=== PATIENT | male | born 1965 | race Two or more races ===

== ENCOUNTER 2016-05-25 13:54 | Observation (INO) | payer OTHER ==
[2016-05-25 14:06] VITALS: RESP 16
--- NOTE | 2016-05-25 14:52 | EDPHY ---
H & P Stated Complaint: lightheaded, dark stool "harder than normal," nausea, lower abd pain HPI/ROS: CHIEF COMPLAINT: Dark stools, nausea, weakness HISTORY OF PRESENT ILLNESS: The patient is a 50 y/o male, with a history of alcoholic cirrhosis and upper GI bleed, complaining of dark stools, waxing and waning nausea, and weakness for the last week. He was admitted in February 2016 for hematemesis and discharged after banding procedure of esophageal varices. He last required a paracentesis for his ascites in October 2015. He does not consistently measure his abdomen, but states he measured his abdomen at 38 inches this morning. In the past, Zofran and Tums alleviate his nausea, but they did not help significantly this time. He has some associated lower abdominal pain when nauseated. He describes dark brown stools, but not black or red, that improved more towards a normal color this morning. He denies vomiting , shortness of breath, leg swelling, or fever. He complains of baseline lightheadedness at exertion for "a long time" that is worse this week. He also endorses hand and leg cramping worsening over the last 3 days. He also notes his BP is normally around 90/60, but it has been slightly lower than normal over the last week and was 85/53 this morning. He has had a cough recently as well. He has been sober for almost 500 days. REVIEW OF SYSTEMS: A ten point review of systems was performed and is negative with the exception of the items mentioned in the HPI. Source: Patient Exam Limitations: No limitations - Personal History Current Tetanus/Diphtheria Vaccine: Unsure Current Tetanus Diphtheria and Acellular Pertussis (TDAP): Unsure - Medical/Surgical History PMH: PMH includes: 1. Alcoholic cirrhosis with history of ascites and last paracentesis 10/2015 2. Upper GI bleed 3. Esophageal varices with banding 02/2016 Reviewed prior medical records including admission for hematemesis 02/25/16. Hx Asthma: No Hx Chronic Respiratory Disease: No Hx Diabetes: No Hx Cardiac Disease: No Hx Renal Disease: No Hx Cirrhosis: Yes Hx Alcoholism: Yes Hx HIV/AIDS: No Hx Splenectomy or Spleen Trauma: No Other PMH: CIRRHOSIS, esophageal varices, upper gi bleed, parecentisis, repaired hernia, TBI 08/2011 - per pt report - Social History Smoking Status: Heavy smoker Alcohol Use: None Additional Social History: 1/2 pack cigarettes daily. Last alcohol intake 495 days ago. Works at [employer]. PCP Dr. Cerna at [facility] - Physical Exam Exam: General Appearance: Alert. Vital signs reviewed. BP 115/78. Eyes: Pupils equal and round, no conjunctival injection, no discharge. Anicteric. ENT, Mouth: Mucous membranes are moist, no oropharyngeal erythema or edema. Neck: No lymphadenopathy, supple. Respiratory: Lungs are clear to auscultation; no wheezes, rales, or rhonchi. Cardiovascular: Regular rate and rhythm; no murmur, rub, or gallop. Gastrointestinal: Abdomen is soft and nontender, no masses, hepatomegaly, bowel sounds normal. Rectal: Normal external exam. Skin: Warm and dry, no rashes on exposed skin, normal color. Back: Nontender to palpation over the thoracolumbar spine. No CVAT. Extremities: No lower extremity edema, no calf tenderness or swelling. Neurological: Alert and oriented. Moving all four extremities easily and equally. Psychiatric: Normal affect. Constitutional: Initial Vital Signs Temperature (C) 36.4 C 05/25/16 14:04 Heart Rate 73 05/25/16 14:04 Respiratory Rate 16 05/25/16 14:04 Blood Pressure 106/70 05/25/16 14:04 O2 Sat (%) 100 05/25/16 14:04 O2 Delivery Mode Room Air Allergies/Adverse Reactions: No Known Allergies Allergy (Unverified 02/25/16 09:58) Home Medications: Medication Instructions Recorded Furosemide [Lasix 40 MG (*)] 40 mg PO DAILY 10/26/15 Levothyroxine [Synthroid 175 mcg 175 mcg PO DAILY06 10/26/15 (*)] Multivitamins [Multivitamin (*)] 1 each PO DAILY 10/26/15 Omeprazole [Prilosec 20 mg] 40 mg PO DAILY 10/26/15 Spironolactone [Aldactone 25 MG 200 mg PO DAILY 10/26/15 (*)] Zolpidem Tartrate [Ambien 5MG (*)] 5 mg PO HS PRN 10/26/15 Herbals/Supplements -Info Only 1 ea PO DAILY 02/25/16 Lactulose [Cephulac 20 gm/30 ml 30 gm PO BID@07,13 02/25/16 oral soln (*)] traMADol [Ultram 50 mg (*)] 25 - 50 mg PO DAILY PRN 02/25/16 Folic Acid [Folic Acid 1 MG (*)] 1 mg PO DAILY 05/25/16 Ondansetron Odt [Zofran Odt 4 mg 4 mg PO Q4 PRN 05/25/16 (*)] Medical Decision Making ED Course/Re-evaluation: IV established. Labs drawn including CBC, CHEM, LFTs, PTPTT, and occult stool. Stool is negative for blood. His hemoglobin and hematocrit are slightly low, but higher than they have been previously. He is noted to have a sodium of 120. 1555: Spoke with Dr. Douglas, hospitalist. He accepts admission for hyponatremia. 1610: Discussed plan for admission with patient. I answered all his questions. He agrees to admission. Differential Diagnosis: I considered a differential diagnosis that includes but is not limited to polydipsia, SIADH, effect of medications, vomiting or diarrhea, dehydration, and liver problems. - Data Points Laboratory Results: Laboratory Results 05/25/16 15:05 05/25/16 15:05 05/25/16 05/25/16 05/25/16 15:05 15:05 15:05 WBC RBC Hgb Hct MCV MCH MCHC RDW Plt Count MPV Neut % (Auto) Lymph % (Auto) [place] % (Auto) Eos % (Auto) Baso % (Auto) Nucleat RBC Rel Count Absolute Neuts (auto) Absolute Lymphs (auto) Absolute Monos (auto) Absolute Eos (auto) Absolute Basos (auto) Absolute Nucleated RBC Immature Gran % Immature Gran # PT 15.6 SEC H SEC (12.0-15.0) INR 1.24 H (0.83-1.16) APTT 33.5 SEC SEC (23.0-38.0) Sodium 120 mEq/L L mEq/L (134-144) Potassium 5.0 mEq/L mEq/L (3.5-5.2) Chloride 85 mEq/L L mEq/L (97-110) Carbon Dioxide 22 mEq/l mEq/l (22-31) Anion Gap 13 mEq/L mEq/L (8-16) BUN 17 mg/dL mg/dL (7-23) Creatinine 0.8 mg/dL mg/dL (0.7-1.3) Estimated GFR > 60 Glucose 112 mg/dL H mg/dL (70-100) Calcium 9.9 mg/dL mg/dL (8.5-10.4) Total Bilirubin 1.1 mg/dL mg/dL (0.1-1.4) Conjugated Bilirubin 0.4 mg/dL mg/dL (0.0-0.5) Unconjugated Bilirubin 0.7 mg/dL mg/dL (0.0-1.1) AST 37 IU/L IU/L (17-59) ALT 61 IU/L IU/L (21-72) Alkaline Phosphatase 160 IU/L H IU/L (38-126) Total Protein 9.4 g/dL H g/dL (6.3-8.2) Albumin 4.9 g/dL g/dL (3.5-5.0) Stool Occult Bld Scrn NEGATIVE (NEGATIVE) 05/25/16 15:05 WBC 8.40 10^3/uL 10^3/uL (3.80-9.50) RBC 5.03 10^6/uL 10^6/uL (4.40-6.38) Hgb 13.1 g/dL L g/dL (13.7-17.5) Hct 38.4 % L % (40.0-51.0) MCV 76.3 fL L fL (81.5-99.8) MCH 26.0 pg L pg (27.9-34.1) MCHC 34.1 g/dL g/dL (32.4-36.7) RDW 18.5 % H % (11.5-15.2) Plt Count 163 10^3/uL 10^3/uL (150-400) MPV 9.8 fL fL (8.7-11.7) Neut % (Auto) 74.2 % % (39.3-74.2) Lymph % (Auto) 9.4 % L % (15.0-45.0) [place] % (Auto) 9.8 % % (4.5-13.0) Eos % (Auto) 5.1 % % (0.6-7.6) Baso % (Auto) 1.0 % % (0.3-1.7) Nucleat RBC Rel Count 0.0 % % (0.0-0.2) Absolute Neuts (auto) 6.24 10^3/uL 10^3/uL (1.70-6.50) Absolute Lymphs (auto) 0.79 10^3/uL L 10^3/uL (1.00-3.00) Absolute Monos (auto) 0.82 10^3/uL H 10^3/uL (0.30-0.80) Absolute Eos (auto) 0.43 10^3/uL H 10^3/uL (0.03-0.40) Absolute Basos (auto) 0.08 10^3/uL 10^3/uL (0.02-0.10) Absolute Nucleated RBC 0.00 10^3/uL 10^3/uL (0-0.01) Immature Gran % 0.5 % % (0.0-1.1) Immature Gran # 0.04 10^3/uL 10^3/uL (0.00-0.10) PT INR APTT Sodium Potassium Chloride Carbon Dioxide Anion Gap BUN Creatinine Estimated GFR Glucose Calcium Total Bilirubin Conjugated Bilirubin Unconjugated Bilirubin AST ALT Alkaline Phosphatase Total Protein Albumin Stool Occult Bld Scrn Departure - Departure Disposition: [facility] Inpatient Acute Clinical Impression: Hyponatremia Condition: Good Report Scribed for: Yashira Morley Report Scribed by: Katya Emerson Date of Report: 05/25/16 Time of Report: 14:54 Physician Review and Approval Statement: 05/25/16 14:52 Portions of this note were transcribed by the medical intern. I, Dr. Yashira Morley, personally performed the history, physical exam, and medical decision- making; and confirmed the accuracy of the information in the transcribed note.
[2016-05-25 15:35] LABS: % IMMATURE GRANULYOCYTES 0.5 % (0.0-1.1); ABSOLUTE IMMATURE GRANULOCYTES 0.04 10^3/uL (0.00-0.10); ADD DIFF? NO; ADD MORPH? NO; ADD SCAN? NO; ATYPICAL LYMPHOCYTE FLAG 10 (0-99); FRAGMENT RBC FLAG 20 (0-99); HEMATOCRIT 38.4 % (40.0-51.0); HEMOGLOBIN 13.1 g/dL (13.7-17.5); LEFT SHIFT FLG 0 (0-99); LIPEMIA HEMOLYSIS FLAG 90 (0-99); MEAN CELL HEMOGLOBIN CONCENTR. 34.1 g/dL (32.4-36.7); MEAN CELL VOLUME 76.3 fL (81.5-99.8); MEAN PLATELET VOLUME 9.8 fL (8.7-11.7); PLATELET CLUMPS FLAG 20 (0-99); PLATELET COUNT 163 10^3/uL (150-400); RED BLOOD CELL COUNT 5.03 10^6/uL (4.40-6.38); RED CELL DISTRIBUTION WIDTH 18.5 % (11.5-15.2)
[2016-05-25 15:42] LABS: APTT 33.5 SEC (23.0-38.0); INR 1.24 (0.83-1.16); PROTIME(PATIENT) 15.6 SEC (12.0-15.0)
[2016-05-25 15:46] LABS: ALANINE AMINOTRANSFERASE 61 IU/L (21-72); ALBUMIN 4.9 g/dL (3.5-5.0); ALKALINE PHOSPHATASE 160 IU/L (38-126); ANION GAP 13 mEq/L (8-16); ASPARTATE AMINOTRANSFERASE 37 IU/L (17-59); BILIRUBIN,TOTAL 1.1 mg/dL (0.1-1.4); BILIRUBIN-CONJUGATED 0.4 mg/dL (0.0-0.5); BILIRUBIN-UNCONJUGATED 0.7 mg/dL (0.0-1.1); CALCIUM 9.9 mg/dL (8.5-10.4); CARBON DIOXIDE 22 mEq/l (22-31); CHLORIDE 85 mEq/L (97-110); CREATININE 0.8 mg/dL (0.7-1.3); GLOMERULAR FILTRATION RATE > 60; GLUCOSE 112 mg/dL (70-100); SODIUM 120 mEq/L (134-144); TOTAL PROTEIN 9.4 g/dL (6.3-8.2)
[2016-05-25 16:30] VITALS: O2SAT 97
[2016-05-25 16:46] VITALS: TEMP 98.3
[2016-05-25] MEDS ORDERED: ACETAMINOPHEN 325 MG TAB PO PRN (19:12)
[2016-05-25] MEDS ORDERED: ONDANSETRON 4 MG/2 ML VIAL IVP PRN (19:12)
[2016-05-25] MEDS ORDERED: ONDANSETRON DISINTEGRATING 4 MG TAB PO PRN (19:12)
[2016-05-25] MEDS ORDERED: traMADol 50 MG TAB PO PRN (19:14)
[2016-05-25] MEDS ORDERED: ZOLPIDEM TARTRATE 5 MG TAB PO PRN (19:14)
[2016-05-25] MEDS ORDERED: NS 1,000 ML IV SCH (19:15)
--- NOTE | 2016-05-25 19:59 | GHP ---
DATE OF ADMISSION: 05/25/2016 CHIEF COMPLAINT: Black stool. HISTORY OF PRESENT ILLNESS: This is a 50-year-old male with a history of end-stage liver disease an d chronic hyponatremia. He was admitted in February with a varicocele bleed which was banded. His primary care doctor has been monitoring and trying to raise his sodium, which has been in the low 13 0s and more recently in the 120s, the last one at 129. He states he has been having intermittent pr oblems with nausea. He says over the last few days he has been having dark stools that are harder t leong normal. He has also had some nausea. His blood pressure has been a little bit low as well. He has not been eating normally. He denies any fevers or chills. No abdominal pain. He remained sob er for almost 2 years. REVIEW OF SYSTEMS: A 10-point review of systems was obtained and other than stated above was negati ve. PAST MEDICAL HISTORY: 1. Alcoholic cirrhosis. 2. Recent upper GI bleed secondary to esophageal varices. 3. Recent hyponatremia. MEDICATIONS: Reviewed include Lasix and Aldactone. SOCIAL HISTORY: No smoking. Again, quit alcohol 500 days ago. He works for [employer]. FAMILY HISTORY: Father had stomach cancer. Mother had Alzheimer's. PHYSICAL EXAMINATION: VITAL SIGNS: Afebrile. Blood pressure is 106/73, heart rate 79, oxygen satu ration 97% on room air. GENERAL: The patient is well developed in no apparent distress. HEENT: N onicteric sclerae. Extraocular muscles intact. Moist mucous membranes. NECK: Supple. No thyrome balaji. LUNGS: Good effort. Clear to auscultation bilaterally. CARDIOVASCULAR: Regular rate and r hythm. No murmurs, gallops. ABDOMEN: Distended, but soft, nontender. EXTREMITIES: No clubbing, cyanosis or edema. SKIN: Without rash. Intact. NEUROLOGIC: Alert and oriented x3. Moving all 4 extremities equally. PSYCH: Normal mood and affect. LABS: White count 8, hemoglobin 13, MCV is 76, platelets are 163. INR is 1.2. Sodium is 120, pota ssium 5.0, BUN 17, creatinine 0.8. ASSESSMENT: This is a 50-year-old male presenting with acute on chronic hyponatremia. PLAN: 1. Hyponatremia probably related to cirrhosis and diuresis. We will hold Lasix and Aldactone. We will also place on a fluid restriction. I am going to give him 1 L of fluid currently and we will w atch his sodium closely. 2. History of recent variceal bleed. He is guaiac negative and his hemoglobin is about the same as it was when he was discharged. We will continue to monitor. 3. Alcoholic cirrhosis. Continue lactulose and as above we will hold diuretics. 4. Admission. Patient will be admitted under observation status. Case discussed with ER physician . Old records were reviewed and summarized in the HPI. /[id number]/MODL
[2016-05-25 20:18] VITALS: BP 98/69; PULSE 80
[2016-05-26] MEDS ORDERED: LEVOTHYROXINE 175 MCG TAB PO SCH (06:00)
[2016-05-26] MEDS ORDERED: LACTULOSE 20 GM/30 ML UDCUP PO SCH (07:00)
[2016-05-26] MEDS ORDERED: NON-FORMULARY NEW DRUG (Omeprazole [Prilosec 20 Mg] 40 MG) PO SCH (09:00)
[2016-05-26] MEDS ORDERED: PANTOPRAZOLE SODIUM 40 MG TAB PO SCH (09:00)
== END 2016-05-25 22:06 | disposition home or self-care (01) ==
LOC: F1N 16:34
PROVIDERS: ADMIT Internal Medicine; ATTEND Internal Medicine
DX: E87.1 Hypo-osmolality and hyponatremia (principal); R19.5 Other fecal abnormalities; K70.30 Alcoholic cirrhosis of liver without ascites; I85.10 Secondary esophageal varices without bleeding; F10.21 Alcohol dependence, in remission; F17.210 Nicotine dependence, cigarettes, uncomplicated
CPT/HCPCS: G0378 ×2

== ENCOUNTER 2016-07-23 11:45 | Day surgery (SDC) | payer OTHER ==
[2016-07-23] MEDS ORDERED: LIDOCAINE 1% 2 ML INJ ONE (12:32)
[2016-07-23] MEDS ORDERED: LIDOCAINE 1% 5 ML SDV ID PRN (12:57)
[2016-07-23] MEDS ORDERED: LR 1,000 ML IV ONE (12:57)
[2016-07-23 13:07] LABS: POTASSIUM 4.6 mEq/L (3.5-5.2); SODIUM 139 mEq/L (134-144)
[2016-07-23] MEDS ORDERED: MIDAZOLAM 2 MG/2 ML VIAL ONE (13:07)
[2016-07-23] MEDS ORDERED: fentaNYL 100 MCG/2 ML INJ ONE (13:13)
[2016-07-23] MEDS ORDERED: PROPOFOL 200 MG/20 ML VIAL ONE ×2 (13:15→13:34)
[2016-07-23] MEDS ORDERED: LIDOCAINE 2% VISCOUS 15 ML UDCUP PO PRN (14:24)
--- NOTE | 2016-07-23 14:24 | GPN ---
[f rep st] PROCEDURE NOTE PROCEDURE: Gastroscopy with argon plasma coagulation and varicocele banding. INDICATIONS: Mr. Gudino is a 50-year-old male with Laennec's cirrhosis, last endoscoped in [facility] of 2016 for upper GI bleed. At that time, 4+ varices were seen and banded. Also patient had a G AVE pattern with some punctate bleeding sites. These were cauterized with argon plasma coagulation. Patient returns for repeat endoscopy to reassess the varices and GAVE and treat accordingly. DESCRIPTION OF PROCEDURE: After proper consent was obtained, patient was placed in lithotomy decubi tus position and received IV propofol sedation. Video gastroscope was introduced through the mouth, down the esophagus, in the stomach, and past the pylorus into the duodenal. FINDINGS: 1. Esophagus has 2+ varices seen. No evidence of any recent bleeding. Three bands were placed on the most prominent varices. 2. A much more mild-appearing GAVE pattern is seen. There were several areas that look fragile, an d these are cauterized with argon plasma coagulation. At this point, instrument was removed. The patient tolerated the procedure well and was taken to [facility] recovery room in stable condition. RECOMMENDATIONS: The patient will continue on current therapy. Of note, his ascites is increasing, and I will discuss with Dr. Rodriguez increasing his diuretics or considering therapeutic paracentesi s. Repeat endoscopy as per Hepatology protocol. Copy requested to: Dr. Lauren Rodriguez [facility] Department of Hepatology /[id number]/MODL
[2016-07-23] MEDS ORDERED: traMADol 50 MG TAB PO ONE (14:53)
[2016-07-23] MEDS ORDERED: traMADol 50 MG TAB ONE (15:09)
== END 2016-07-23 16:20 | disposition home or self-care (01) ==
LOC: FSGY 11:45
PROVIDERS: ATTEND Internal Medicine Gastroenterology
DX: K70.31 Alcoholic cirrhosis of liver with ascites (principal); I85.10 Secondary esophageal varices without bleeding; K31.819 Angiodysplasia of stomach and duodenum without bleeding
CPT/HCPCS: J2250; J2704; J3010

== ENCOUNTER → 2016-08-14 | Outpatient (CLI) | payer OTHER | LOC: BMCIMAGING 16:24 | PROVIDERS: ATTEND Family Medicine | DX: R05 Cough (principal); F17.210 Nicotine dependence, cigarettes, uncomplicated ==

== ENCOUNTER → 2016-11-05 | Outpatient (CLI) | payer OTHER ==
[~2016-11-05] MED LIST: GADOBUTROL 10 ML VIAL IVP ONE
== END ==
LOC: FIMAGING 15:01
PROVIDERS: ATTEND Family Medicine
DX: K76.9 Liver disease, unspecified (principal); R18.8 Other ascites; R16.1 Splenomegaly, not elsewhere classified; K80.20 Calculus of gallbladder without cholecystitis without obstruction; N28.1 Cyst of kidney, acquired
CPT/HCPCS: A9585

== ENCOUNTER 2016-12-27 09:33 | Inpatient (IN) | payer OTHER ==
--- NOTE | 2016-12-27 10:02 | CPEKG ---
Heart Rate: 89 RR Interval: 674 P-R Interval: 148 QRSD Interval: 78 QT Interval: 348 QTC Interval: 424 P [place]: 22 QRS [place]: -30 T Wave [place]: 52 EKG Severity - OTHERWISE NORMAL ECG - EKG Impression: SINUS RHYTHM EKG Impression: LEFT AXIS DEVIATION Electronically Signed By: Irina Hankins 27-Dec-2016 15:42:47
[2016-12-27 10:21] LABS: % IMMATURE GRANULYOCYTES 0.8 % (0.0-1.1); ABSOLUTE IMMATURE GRANULOCYTES 0.07 10^3/uL (0.00-0.10); ADD DIFF? NO; ADD MORPH? NO; ADD SCAN? NO; ATYPICAL LYMPHOCYTE FLAG 10 (0-99); FRAGMENT RBC FLAG 20 (0-99); HEMATOCRIT 39.5 % (40.0-51.0); HEMOGLOBIN 13.4 g/dL (13.7-17.5); LEFT SHIFT FLG 0 (0-99); LIPEMIA HEMOLYSIS FLAG 90 (0-99); MEAN CELL HEMOGLOBIN 26.9 pg (27.9-34.1); MEAN CELL HEMOGLOBIN CONCENTR. 33.9 g/dL (32.4-36.7); MEAN CELL VOLUME 79.3 fL (81.5-99.8); MEAN PLATELET VOLUME 9.5 fL (8.7-11.7); PLATELET CLUMPS FLAG 0 (0-99); PLATELET COUNT 151 10^3/uL (150-400); RED BLOOD CELL COUNT 4.98 10^6/uL (4.40-6.38); RED CELL DISTRIBUTION WIDTH 18.6 % (11.5-15.2)
[2016-12-27 10:29] LABS: INR 1.27 (0.83-1.16); PROTIME(PATIENT) 15.9 SEC (12.0-15.0)
[2016-12-27 10:33] LABS: ALANINE AMINOTRANSFERASE 72 IU/L (21-72); ALBUMIN 4.6 g/dL (3.5-5.0); ALKALINE PHOSPHATASE 154 IU/L (38-126); ANION GAP 14 mEq/L (8-16); ASPARTATE AMINOTRANSFERASE 45 IU/L (17-59); BILIRUBIN,TOTAL 0.6 mg/dL (0.1-1.4); BILIRUBIN-CONJUGATED 0.3 mg/dL (0.0-0.5); BILIRUBIN-UNCONJUGATED 0.3 mg/dL (0.0-1.1); CALCIUM 9.8 mg/dL (8.5-10.4); CARBON DIOXIDE 20 mEq/l (22-31); CHLORIDE 95 mEq/L (97-110); CREATININE 0.6 mg/dL (0.7-1.3); GLOMERULAR FILTRATION RATE > 60; GLUCOSE 172 mg/dL (70-100); SODIUM 129 mEq/L (134-144)
--- NOTE | 2016-12-27 10:34 | EDPHY ---
HPI/HX/ROS/PE/MDM Narrative: CHIEF COMPLAINT: Black stool HISTORY OF PRESENT ILLNESS: This patient is a 51 y/o male with history of cirrhosis complaining of black tarry stools onset this morning. Has had history of melena in the past from esophageal varices and stomach ulcers. Yesterday morning, he felt lightheaded, but this resolved. In the evening, he developed nausea and generalized abdominal discomfort. He took Zofran, which resolved his symptoms. This morning, he had a bowel movement that was black at the end. He had a second bowel movement that was all black. He complaints of left shoulder pain onset this morning as well. History of cirrhosis likely due to alcoholism. No continued alcohol use. He has had ascites in the past, and has not taken his diuretics today. He endorses headache and cough. He denies noting any jaundice recently. Denies history of hypertension, diabetes. No fever, chills, chest pain, shortness of breath, palpitations, vomiting, diarrhea, urinary complaints, lightheadedness. REVIEW OF SYSTEMS: Aside from elements discussed in the HPI, a comprehensive 10-point review of systems was reviewed and is negative. PAST MEDICAL HISTORY: Hypothyroid, Alcoholic cirrhosis, Hepatic encephalopathy. SOCIAL HISTORY: Current tobacco use. No alcohol use. VITAL SIGNS: Reviewed by me GENERAL: Well-developed, well-nourished, resting comfortably in no respiratory distress. HEENT: Atraumatic. Eyes: No icterus, no injection. Mouth: moist mucous membranes. No erythema or lesions. Neck: supple with no adenopathy. LUNGS: Clear to auscultation bilaterally, no wheezes, rhonchi or rales. CARDIAC: Regular rate and rhythm, no rubs, murmurs or gallops. ABDOMEN: Ventral hernia. Soft, nontender, nondistended, bowel sounds normal. RECTAL: Dark brown stool with areas of melena. No hemorrhoids, no bright red blood. EXTREMITIES: No trauma. No edema. Range of motion is normal throughout. NEURO: Alert and oriented, grossly nonfocal. SKIN: Warm and dry, no rash. No jaundice. Spider hemangioma scattered. PSYCHIATRIC: Normal mentation, no agitation. Portions of this note were transcribed by a medical coding technician. I personally performed a history, physical exam, medical decision making, and confirmed accuracy of information the transcribed note. ED Course: 52-year-old male presenting with complaints of melanotic stool. Known history of cirrhosis. No history of ascites. Also reporting significant pain in his left shoulder. Abdominal ultrasound does demonstrate significant intraperitoneal fluid. Procedure: Abdominal ultrasound. Limited abdominal ultrasound for evaluate inner abdominal fluid utilizing the thoracoabdominal emergency ultrasound protocol. 1) The right upper quadrant was visualized and was found to be positive for intraperitoneal fluid. 2) The left upper quadrant was visualized and found to be negative for intraperitoneal fluid. The bladder was visualized and did not reveal an anechoic area outside of the adjacent urinary bladder. Bladder was positive for urine. The study was felt to be positive for free intraperitoneal fluid The procedure was performed by myself, Dr. Hankins 51 y/o male with history of cirrhosis presents with black tarry stools onset this morning. He has known esophageal varices. Plan for bedside ultrasound for fluid in abdomen. Plan for labs including CBC, BMP, PTPTT, liver, lipase, type and screen, Troponin, occult blood. IV established. Administered 500mL IV NS. Occult blood positive. Plan to admit. 10:59 Spoke with hospitalist service. Dr. Pedersen accepts admission for GI hemorrhage, liver disease, abdominal pain, ascites. MDM: Differential diagnoses for the patient's symptom complex was considered including but not limited to lower GI hemorrhage, ascites, SBP, upper GI hemorrhage, hemorrhoidal bleeding, rectal bleeding, diverticulitis, diverticulosis. - Data Points Laboratory Results: Laboratory Results 12/27/16 10:00 12/27/16 10:00 12/27/16 12/27/16 12/27/16 10:30 10:00 10:00 WBC RBC Hgb Hct MCV MCH MCHC RDW Plt Count MPV Neut % (Auto) Lymph % (Auto) [place] % (Auto) Eos % (Auto) Baso % (Auto) Nucleat RBC Rel Count Absolute Neuts (auto) Absolute Lymphs (auto) Absolute Monos (auto) Absolute Eos (auto) Absolute Basos (auto) Absolute Nucleated RBC Immature Gran % Immature Gran # PT INR Sodium 129 mEq/L L mEq/L (134-144) Potassium 5.0 mEq/L mEq/L (3.5-5.2) Chloride 95 mEq/L L mEq/L (97-110) Carbon Dioxide 20 mEq/l L mEq/l (22-31) Anion Gap 14 mEq/L mEq/L (8-16) BUN 39 mg/dL H mg/dL (7-23) Creatinine 0.6 mg/dL L mg/dL (0.7-1.3) Estimated GFR > 60 Glucose 172 mg/dL H mg/dL (70-100) Calcium 9.8 mg/dL mg/dL (8.5-10.4) Total Bilirubin 0.6 mg/dL mg/dL (0.1-1.4) Conjugated Bilirubin 0.3 mg/dL mg/dL (0.0-0.5) Unconjugated Bilirubin 0.3 mg/dL mg/dL (0.0-1.1) AST 45 IU/L IU/L (17-59) ALT 72 IU/L IU/L (21-72) Alkaline Phosphatase 154 IU/L H IU/L (38-126) Troponin I < 0.012 ng/mL ng/mL (0.000-0.034) Total Protein 9.0 g/dL H g/dL (6.3-8.2) Albumin 4.6 g/dL g/dL (3.5-5.0) Lipase 307 IU/L H IU/L (23-300) Stool Occult Bld Scrn POSITIVE H (NEGATIVE) Patient ABO/Rh A POSITIVE Antibody Screen NEGATIVE 12/27/16 12/27/16 10:00 10:00 WBC 9.17 10^3/uL 10^3/uL (3.80-9.50) RBC 4.98 10^6/uL 10^6/uL (4.40-6.38) Hgb 13.4 g/dL L g/dL (13.7-17.5) Hct 39.5 % L % (40.0-51.0) MCV 79.3 fL L fL (81.5-99.8) MCH 26.9 pg L pg (27.9-34.1) MCHC 33.9 g/dL g/dL (32.4-36.7) RDW 18.6 % H % (11.5-15.2) Plt Count 151 10^3/uL 10^3/uL (150-400) MPV 9.5 fL fL (8.7-11.7) Neut % (Auto) 76.9 % H % (39.3-74.2) Lymph % (Auto) 8.1 % L % (15.0-45.0) Cass[place] % (Auto) 12.8 % % (4.5-13.0) Eos % (Auto) 0.9 % % (0.6-7.6) Baso % (Auto) 0.5 % % (0.3-1.7) Nucleat RBC Rel Count 0.0 % % (0.0-0.2) Absolute Neuts (auto) 7.06 10^3/uL H 10^3/uL (1.70-6.50) Absolute Lymphs (auto) 0.74 10^3/uL L 10^3/uL (1.00-3.00) Absolute Monos (auto) 1.17 10^3/uL H 10^3/uL (0.30-0.80) Absolute Eos (auto) 0.08 10^3/uL 10^3/uL (0.03-0.40) Absolute Basos (auto) 0.05 10^3/uL 10^3/uL (0.02-0.10) Absolute Nucleated RBC 0.00 10^3/uL 10^3/uL (0-0.01) Immature Gran % 0.8 % % (0.0-1.1) Immature Gran # 0.07 10^3/uL 10^3/uL (0.00-0.10) PT 15.9 SEC H SEC (12.0-15.0) INR 1.27 H (0.83-1.16) Sodium Potassium Chloride Carbon Dioxide Anion Gap BUN Creatinine Estimated GFR Glucose Calcium Total Bilirubin Conjugated Bilirubin Unconjugated Bilirubin AST ALT Alkaline Phosphatase Troponin I Total Protein Albumin Lipase Stool Occult Bld Scrn Patient ABO/Rh Antibody Screen Medications Given: Oxycodone HCl (Oxycodone Ir) 5 mg PO Q4HRS PRN PRN Reason: Pain, Severe Able to Take PO Stop: 01/06/17 12:33 Last Admin: 12/27/16 12:53 Dose: 5 mg Discontinued Medications Sodium Chloride (Ns) 500 mls @ 1,500 mls/hr IV ONCE ONE Stop: 12/27/16 11:59 Last Admin: 12/27/16 11:40 Dose: 500 mls Ceftriaxone Sodium/Dextrose (Rocephin 1 Gm (Premix)) 50 mls @ 100 mls/hr IV DAILY MURIEL PRN Reason: Protocol Stop: 01/26/17 12:29 Last Admin: 12/27/16 13:48 Dose: 50 mls General Time Seen by Provider: 12/27/16 10:04 Initial Vital Signs: Initial Vital Signs Temperature (C) 36.9 C 12/27/16 09:39 Heart Rate 103 H 12/27/16 09:39 Respiratory Rate 18 12/27/16 09:39 Blood Pressure 113/78 12/27/16 09:39 O2 Sat (%) 96 12/27/16 09:39 O2 Delivery Mode Room Air Allergies/Adverse Reactions: No Known Allergies Allergy (Verified 12/27/16 09:41) Home Medications: Medication Instructions Recorded Benzonatate [Tessalon Pearles (RX)] 100 mg PO TID PRN 12/27/16 Fluticasone/Vilanterol [Breo 1 each IH DAILY 12/27/16 Ellipta 200-25 Mcg INH] Folic Acid [Folic Acid 1 MG (*)] 1 mg PO DAILY 12/27/16 Furosemide [Lasix 40 MG (*)] 100 mg PO DAILY 12/27/16 Herbals/Supplements -Info Only 1 ea PO DAILY 12/27/16 Yvette's Leg Cramp Tabs 1 tab PO DAILY PRN 12/27/16 Lactulose 10 gm PO DAILY@1800 12/27/16 Lactulose 20 gm PO DAILY 12/27/16 Levothyroxine [Synthroid 150 mcg 150 mcg PO DAILY06 12/27/16 (*)] Multivitamins [Multivitamin (*)] 1 each PO DAILY 12/27/16 Cammal-3 Fatty Acids [Fish Oil 1000 1,000 mg PO DAILY@1200 12/27/16 mg (*)] Ranitidine HCl 150 mg PO BID 12/27/16 Rifaximin [Xifaxan] 550 mg PO 06,12 12/27/16 Spironolactone 200 mg PO DAILY 12/27/16 Vitamin B Complex [B Complex] 1 each PO DAILY 12/27/16 Zolpidem Tartrate [Ambien 5MG (*)] 5 mg PO HS PRN 12/27/16 oxyCODONE IR [Oxycodone Ir (*)] 5 mg PO DAILY PRN 12/27/16 Departure - Departure Disposition: [facility] Inpatient Acute Clinical Impression: Liver disease, chronic, due to alcohol GIB (gastrointestinal bleeding) Qualifiers: GI bleed type/associated pathology: melena Qualified Code(s): K92.1 - Melena Abdominal pain Qualifiers: Abdominal location: generalized Qualified Code(s): R10.84 - Generalized abdominal pain Ascites Qualifiers: Ascites type: due to alcoholic cirrhosis Qualified Code(s): K70.31 - Alcoholic cirrhosis of liver with ascites Condition: Fair Report Scribed for: Irina Hankins Report Scribed by: Opal Acuna Date of Report: 12/27/16 Time of Report: 11:00
[2016-12-27 10:44] LABS: TROPONIN I < 0.012 ng/mL (0.000-0.034)
[2016-12-27] MEDS ORDERED: NS 500 ML IV ONE (11:40)
[2016-12-27] MEDS ORDERED: PANTOPRAZOLE SODIUM 80 MG in NS 100 ML IV SCH (12:15)
[2016-12-27] MEDS ORDERED: OCTREOTIDE ACETATE 500 MCG in D5W 50 ML IV SCH (12:15)
[2016-12-27] MEDS: oxyCODONE IR 5 MG TAB PO PRN ×2 (12:53→20:48)
--- NOTE | 2016-12-27 13:10 | GHP ---
[f rep st] HISTORY AND PHYSICAL DATE OF ADMISSION: 12/27/2016 HISTORY OF PRESENT ILLNESS: The patient is a pleasant 51-year-old gentleman with history of cirrhosi s attributed to alcohol, as well as known esophageal varices and portal gastropathy. He presents wit h an episode of melena this morning. He was in his usual state of health until yesterday, when he fe lt nauseated but never vomited. He has felt poorly. He had some neck pain in the back of his neck a s well as some hip pain, and an episode of melena this morning. Patient has been off alcohol for 2 y ears. He does not take NSAIDs. He does not take aspirin. He has not been jaundiced. He has ascite s with his belly perhaps a bit bigger than it has been; he does take diuretics. He is followed by a tender coordinator at [facility] as well as . No fever, chills, nausea, or vomiting. His last endoscopy was in July of this year when they did some banding of varices. He has not had surveillance endoscopy since then. REVIEW OF SYSTEMS: Complete 10-point review of systems conducted and negative, except as in the HPI. PAST MEDICAL HISTORY: Hypothyroidism, cirrhosis secondary to alcohol, and history of hepatic encepha lopathy. ALLERGIES: No known drug allergies. MEDICATIONS: Folate, lactulose, Lasix, levothyroxine, multivitamin, omeprazole, rifaximin, spironola ctone, tramadol, and Ambien. FAMILY HISTORY: Reviewed and unremarkable. 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 Describes his work as stressful. Does smok e cigarettes. Alcohol as in the HPI. PHYSICAL EXAMINATION: VITAL SIGNS: Presenting temp 37, blood pressure 113/78, pulse 103 (now 85), b reathing 18 times a minute, 96% in room air. GENERAL: No acute distress. HEENT: Sclerae anicteric . Oropharynx clear. Mucous membranes moist. NECK: Supple without lymphadenopathy or JVD. LUNGS: Clear to auscultation bilaterally. HEART: S1, S2. Not tachycardic. ABDOMEN: Soft. There is a f luid wave consistent with ascites. There is no rebound or guarding. There is no tenderness. LOWER EXTREMITIES: Without edema. Calves nontender. SKIN: Without rash. NEUROLOGIC: Nonfocal. LABORATORY DATA: White count 9, hematocrit 39.5, platelets 151,000. INR is 1.27. Sodium 129, potas sium 5, chloride 95, bicarb 20, BUN 39, creatinine 0.6, glucose 172. LFTs are normal with alk phos m odestly elevated at 154. Troponin is less than 0.012. Lipase is 307. EKG, interpreted by me, shows sinus at 89 with left axis deviation, normal intervals, no ST or T-wave changes. I have discussed the case with Dr. Irina Hankins. ASSESSMENT/PLAN: A 51-year-old gentleman with ascites and known varices presents with melena, concer megan for upper gastrointestinal bleed. 1. Question varicocele bleed. It has to be considered to be a variceal bleed until it has been rule d out. He is certainly not bleeding very but briskly at this point in time. Put him on IV PPI, IV o ctreotide, ceftriaxone. Follow serial hematocrits. Given vitamin K. His ditching machine engineer is Dr. Thoams. I have reached out to him . 2. Hyponatremia mild, secondary to diuretics. Will hold his diuretics. 3. Neck pain. Follow. He has negative troponins. Considering his troponin and nonischemic EKG, a reasonable evaluation. 4. Acidosis, mild; will follow. 5. Prophylaxis: Sequential compression devices. DISPOSITION: Inpatient status, greater than 48 hours with 2 midnights required for management of thi s complex patient. /[id number]/MODL
--- NOTE | 2016-12-27 13:37 | PDMN ---
Medical Necessity Medical necessity: C/M review: Pt. meets INPT criteria per [facility] Gastrointestinal bleed, upper; Acute melena, ascites, concerning for upper GI bleed, Hgb 13.4, Hct 39.5, hyponatremia, Na 129, requiring planned GI consult, ongoing NPO, IV Octreotide infusion, IV Pantoprazole infusion, IV Ceftriaxone QD , comorbid esophageal varices, cirrhosis secondary to alcohol, hypothyroidism, hx hepatic encephalopathy, portal gastropathy; anticipate > 2 MN LOS for ongoing medical necessity for eval and TX of above.
[2016-12-27 13:40] LABS: HEMATOCRIT 34.7 % (40.0-51.0); HEMOGLOBIN 11.9 g/dL (13.7-17.5)
[2016-12-27] MEDS ORDERED: fentaNYL 100 MCG/2 ML INJ ONE (15:02)
[2016-12-27] MEDS ORDERED: PROPOFOL 200 MG/20 ML VIAL ONE (15:02)
[2016-12-27] MEDS ORDERED: ROCURONIUM 50 MG/5 ML VIAL ONE (15:03)
[2016-12-27] MEDS ORDERED: SUCCINYLCHOLINE CHLORIDE*ANESTHESIA ONLY*200 MG/10 ML SYR IVP ONE (15:04)
[2016-12-27] MEDS ORDERED: LIDOCAINE 2% 5 ML SDV ONE (15:05)
--- NOTE | 2016-12-27 15:29 | POSTOPPROG ---
Post Op Note Date of Operation: 12/27/16 Surgeon: Erik Thomas Anesthesia: GET(General Endotracheal) Pre-op Diagnosis: GI bleed Post-op Diagnosis: GAVE. Inactive varices in esophagus. Inf/Abcess present in the surg proc area at time of surgery?: No Complications: none
--- NOTE | 2016-12-27 15:30 | SOAPPROG ---
SOAP Progress Note Assessment/Plan: Assessment:EGD shows scant bleeding from alcoholic gastropathy, which was cauterized with APC. 1+ esophageal varices, no signs of recent bleed. OK to go home on PPIs. Plan: 12/27/16 15:29 Objective: Vital Signs Temp Pulse Resp BP Pulse Ox 36.7 C 85 16 105/69 99 12/27/16 11:44 12/27/16 12:14 12/27/16 12:14 12/27/16 12:14 12/27/16 12:14 Laboratory Results 12/27/16 13:30 PT 15.9 SEC (12.0-15.0) H 12/27/16 10:00 INR 1.27 (0.83-1.16) H 12/27/16 10:00 ICD10 Worksheet Patient Problems: Problems Problem Status Onset Abdominal pain Acute Ascites Acute GIB (gastrointestinal bleeding) Acute Liver disease, chronic, due to alcohol Acute Hyponatremia Acute
[2016-12-27] MEDS ORDERED: BENZONATATE 100 MG CAP PO PRN (15:35)
[2016-12-27] MEDS ORDERED: ZOLPIDEM TARTRATE 5 MG TAB PO PRN (15:35)
--- NOTE | 2016-12-27 16:01 | PDANEPAE ---
ANE Past Medical History - Cardiovascular History Hx Hypertension: No Hx Arrhythmias: No Hx Chest Pain: No Hx Coronary Artery / Peripheral Vascular Disease: No Hx CHF / Valvular Disease: No Hx Palpitations: No - Pulmonary History Hx COPD: No Hx Asthma/Reactive Airway Disease: No Hx Recent Upper Respiratory Infection: No Hx Oxygen in Use at Home: No Hx Sleep Apnea: No Sleep Apnea Screening Result - Last Documented: Negative - Neurologic History Hx Cerebrovascular Accident: No Hx Seizures: No Hx Dementia: No Neurologic History Comment: Hx of traumatic brain injury - Endocrine History Hx Diabetes: No Hypothyroid: No Hyperthyroid: No Obesity: no - Renal History Hx Renal Disorders: No - Liver History Hx Hepatic Disorders: Yes Hepatic History Comment: ETOH hepatitis, cirrhosis, ascites - Neurological & Psychiatric Hx Hx Neurological and Psychiatric Disorders: Yes Neurological / Psychiatric History Comment: Hx of TBI, anxiety, depression - Cancer History Hx Cancer: No - Congenital Disorder History Hx Congenital Disorders: No - GI History Hx Gastrointestinal Disorders: Yes Gastrointestinal History Comment: Hx of GI bleed - Other Health History Other Health History: Hypothyroid, L3-4 disk herniation - Chronic Pain History Chronic Pain: Yes - Surgical History Prior Surgeries: Hernia repair 2009, banding of esophageal varices 2011 ANE Review of Systems Review of Systems: - Exercise capacity METS (RN): 4 METS ANE Patient History - Allergies Allergies/Adverse Reactions: No Known Allergies Allergy (Verified 12/27/16 09:41) - Home Medications Home Medications: Benzonatate [Tessalon Pearles (RX)] 100 mg PO TID PRN 12/27/16 [Last Taken Unknown] Fluticasone/Vilanterol [Breo Ellipta 200-25 Mcg INH] 1 each IH DAILY 12/27/16 [ Last Taken 12/26/16] Folic Acid [Folic Acid 1 MG (*)] 1 mg PO DAILY 12/27/16 [Last Taken Unknown] Furosemide [Lasix 40 MG (*)] 100 mg PO DAILY 12/27/16 [Last Taken 12/26/16] Herbals/Supplements -Info Only 1 ea PO DAILY 12/27/16 [Last Taken Unknown] Yvette's Leg Cramp Tabs 1 tab PO DAILY PRN 12/27/16 [Last Taken Unknown] Lactulose 10 gm PO DAILY@1800 12/27/16 [Last Taken 12/26/16] Lactulose 20 gm PO DAILY 12/27/16 [Last Taken 12/26/16] Levothyroxine [Synthroid 150 mcg (*)] 150 mcg PO DAILY06 12/27/16 [Last Taken ] Multivitamins [Multivitamin (*)] 1 each PO DAILY 12/27/16 [Last Taken 12/26/16] [place]-3 Fatty Acids [Fish Oil 1000 mg (*)] 1,000 mg PO DAILY@1200 12/27/16 [ Last Taken Unknown] Ranitidine HCl 150 mg PO BID 12/27/16 [Last Taken 12/26/16] Rifaximin [Xifaxan] 550 mg PO 06,12 12/27/16 [Last Taken 12/26/16] Spironolactone 200 mg PO DAILY 12/27/16 [Last Taken 12/26/16] Vitamin B Complex [B Complex] 1 each PO DAILY 12/27/16 [Last Taken 12/26/16] Zolpidem Tartrate [Ambien 5MG (*)] 5 mg PO HS PRN 12/27/16 [Last Taken 12/26/16] oxyCODONE IR [Oxycodone Ir (*)] 5 mg PO DAILY PRN 12/27/16 [Last Taken 12/26/16] - NPO status NPO Since - Liquids (Date): 12/27/16 NPO Since - Liquids (Time): 06:00 NPO Since - Solids (Date): 12/27/16 NPO Since - Solids (Time): 06:00 - Anes Hx Anes Hx: no prior problems - Smoking Hx Smoking Status: Heavy smoker - Alcohol Use Alcohol Use: Heavy - Family Anes Hx Family Anes Hx: neg - N/A Family Hx Anesthesia Complications: None ANE Labs/Vital Signs - Labs Result Diagrams: 12/27/16 13:30 12/27/16 10:00 - Vital Signs Blood Pressure: 105/69 Heart Rate: 85 Respiratory Rate: 16 O2 Sat (%): 99 Height: 167.64 cm Weight: 68.492 kg ANE Physical Exam - Airway Mallampati Score: Class 2 Mouth exam: normal dental/mouth exam - Pulmonary Pulmonary: no respiratory distress - Cardiovascular Cardiovascular: regular rate and rhythym - ASA Status ASA Status: III, E ANE Anesthesia Plan Anesthesia Plan: general endotracheal anesthesia Urgent/Emergent Case: Conor monroe completed preop but documented later for safe timely pt care
[2016-12-27] MEDS ORDERED: ONDANSETRON 4 MG/2 ML VIAL IVP PRN (16:03)
[2016-12-27] MEDS ORDERED: fentaNYL 100 MCG/2 ML INJ IVP PRN (16:03)
[2016-12-27] MEDS ORDERED: LR 500 ML IV PRN (16:03)
[2016-12-27] MEDS ORDERED: NALOXONE HCL 0.4 MG/ML INJ IVP PRN (16:03)
--- NOTE | 2016-12-27 16:03 | POSTANESTH ---
Post Anesthetic Evaluation Cardiovascular Status: Normal, Stable Respiratory Status: Normal, Stable Level of Consciousness/Mental Status: Can Participate in Eval Pain Control: Adequate, Prn Tx Ordered Nausea/Vomiting Control: Adequate, Prn Tx Ordered Complications Possibly Related to Anesthesia: None Noted
[2016-12-27] MEDS ORDERED: LACTULOSE 20 GM/30 ML UDCUP PO SCH (18:00)
[2016-12-27] MEDS ORDERED: LACTULOSE 10 GM PO SCH (18:00)
[2016-12-27] MEDS: NICOTINE 21 MG/24 HR PATCH TD SCH (18:24)
--- NOTE | 2016-12-27 18:46 | GPN ---
[f rep st] PROCEDURE NOTE PROCEDURE: Gastroscopy with argon plasma coagulation. INDICATION: Patient is a 51-year-old male with Laennec's cirrhosis, history of varices, and alcoholi c gastropathy, who has had previous banding most recently in July of this year. At that time, the gas tropathy was also cauterized with the argon plasma. Patient was readmitted today with melena. No significant drop in hemoglobin or other GI symptomatolo gy. Endoscopy is being performed to evaluate and treat. DESCRIPTION OF PROCEDURE: After proper consent was obtained, patient was intubated and placed in lef t lateral decubitus position. Video gastroscope was introduced through the mouth, down the esophagus into the stomach past the pylorus and into the duodenum. Findings: 1. 1+ esophageal varices with no active bleeding. Banding was not performed. 2. Several superficial erosions in the fundus in the area of the gastropathy were noted with some ac tive oozing. All these were addressed with argon plasma coagulation with good coagulation obtained. 3. Duodenum appears normal. At this point, instrument was removed. Patient tolerated procedure well. Was returned to recovery r oom in stable condition. RECOMMENDATIONS: 1. Octreotide and antibiotics can be discontinued. 2. Continue proton pump inhibitors. 3. Patient may be discharged when medically stable. Copy requested to: Dr. Lauren Rodriguez [facility] Dept of Hepatology /[id number]/MODL
[2016-12-27 19:15] LABS: HEMATOCRIT 33.3 % (40.0-51.0); HEMOGLOBIN 11.4 g/dL (13.7-17.5)
[2016-12-27] MEDS: FAMOTIDINE 20 MG TAB PO SCH (20:48)
[2016-12-27] MEDS ORDERED: NON-FORMULARY NEW DRUG (Ranitidine Hcl [Ranitidine Hcl] 150 MG) PO SCH (21:00)
[2016-12-28 00:28] LABS: HEMATOCRIT 33.2 % (40.0-51.0); HEMOGLOBIN 11.5 g/dL (13.7-17.5)
[2016-12-28] MEDS ORDERED: PANTOPRAZOLE SODIUM 80 MG in NS 100 ML IV SCH (03:00)
[2016-12-28] MEDS ORDERED: LEVOTHYROXINE 150 MCG TAB PO SCH (06:00)
[2016-12-28] MEDS ORDERED: RIFAXIMIN 550 MG TAB PO SCH (06:00)
[2016-12-28 06:03] LABS: % IMMATURE GRANULYOCYTES 0.3 % (0.0-1.1); ABSOLUTE IMMATURE GRANULOCYTES 0.02 10^3/uL (0.00-0.10); ADD DIFF? NO; ADD MORPH? NO; ADD SCAN? NO; ATYPICAL LYMPHOCYTE FLAG 20 (0-99); FRAGMENT RBC FLAG 20 (0-99); HEMATOCRIT 34.4 % (40.0-51.0); HEMOGLOBIN 11.8 g/dL (13.7-17.5); LEFT SHIFT FLG 0 (0-99); LIPEMIA HEMOLYSIS FLAG 90 (0-99); MEAN CELL HEMOGLOBIN 27.6 pg (27.9-34.1); MEAN CELL HEMOGLOBIN CONCENTR. 34.3 g/dL (32.4-36.7); MEAN CELL VOLUME 80.4 fL (81.5-99.8); MEAN PLATELET VOLUME 9.5 fL (8.7-11.7); PLATELET CLUMPS FLAG 0 (0-99); PLATELET COUNT 87 10^3/uL (150-400); RED BLOOD CELL COUNT 4.28 10^6/uL (4.40-6.38); RED CELL DISTRIBUTION WIDTH 18.4 % (11.5-15.2)
[2016-12-28 06:12] LABS: INR 1.37 (0.83-1.16); PROTIME(PATIENT) 16.9 SEC (12.0-15.0)
[2016-12-28 06:22] LABS: ALANINE AMINOTRANSFERASE 90 IU/L (21-72); ALBUMIN 3.5 g/dL (3.5-5.0); ALKALINE PHOSPHATASE 128 IU/L (38-126); ANION GAP 7 mEq/L (8-16); ASPARTATE AMINOTRANSFERASE 55 IU/L (17-59); CALCIUM 8.9 mg/dL (8.5-10.4); CARBON DIOXIDE 18 mEq/l (22-31); CHLORIDE 101 mEq/L (97-110); CREATININE 0.6 mg/dL (0.7-1.3); GLOMERULAR FILTRATION RATE > 60; GLUCOSE 100 mg/dL (70-100); POTASSIUM 4.8 mEq/L (3.5-5.2); SODIUM 126 mEq/L (134-144)
[2016-12-28 07:17] VITALS: BP 90/71; PULSE 78; RESP 16; TEMP 97.7; O2SAT 97
[2016-12-28] MEDS: FAMOTIDINE 20 MG TAB PO SCH (08:56)
[2016-12-28] MEDS: NICOTINE 21 MG/24 HR PATCH TD SCH (08:58)
[2016-12-28] MEDS ORDERED: Herbals/Supplements -Info Only PO SCH (09:00)
[2016-12-28] MEDS ORDERED: FUROSEMIDE 40 MG TAB PO SCH (09:00)
[2016-12-28] MEDS ORDERED: FOLIC ACID 1 MG TAB PO SCH (09:00)
[2016-12-28] MEDS ORDERED: NON-FORMULARY NEW DRUG (Fluticasone/Vilanterol [Breo Ellipta 200-25 Mcg Inh] 1 EACH) IH SCH (09:00)
[2016-12-28] MEDS ORDERED: NON-FORMULARY NEW DRUG (Lactulose [Lactulose] 20 GM) PO SCH (09:00)
[2016-12-28] MEDS ORDERED: VITAMIN B COMPLEX 1 EA CAP/TAB PO SCH ×2 (09:00)
[2016-12-28] MEDS ORDERED: SPIRONOLACTONE 100 MG TAB PO SCH (09:00)
[2016-12-28] MEDS ORDERED: MULTIVITAMINS 1 EACH TAB PO SCH (09:00)
[2016-12-28] MEDS ORDERED: LACTULOSE 20 GM/30 ML UDCUP PO SCH (09:00)
--- NOTE | 2016-12-28 09:16 | HOSPPROG ---
Hospitalist Progress Note Assessment/Plan: 51 yo M w cirrhosis here w non variceal UGIB home today outpt sodium check see dc summary >30 minutes Objective: Vital Signs Temp Pulse Resp BP Pulse Ox 36.5 C 78 16 90/71 L 97 12/28/16 07:14 12/28/16 07:14 12/28/16 07:14 12/28/16 07:14 12/28/16 07:14 Laboratory Results 12/28/16 05:46 12/28/16 05:46 12/27/16 12/28/16 12/29/16 05:59 05:59 05:59 Intake Total 1200 Balance 1200 PT 16.9 SEC (12.0-15.0) H 12/28/16 05:46 INR 1.37 (0.83-1.16) H 12/28/16 05:46 ICD10 Worksheet Patient Problems: Problems Problem Status Onset Abdominal pain Acute Ascites Acute GIB (gastrointestinal bleeding) Acute Liver disease, chronic, due to alcohol Acute Hyponatremia Acute
--- NOTE | 2016-12-28 09:28 | GDS ---
[f rep st] DISCHARGE SUMMARY DISCHARGE DIAGNOSES: 1. Upper gastrointestinal bleed from portal gastropathy. 2. History of varices. 3. Hyponatremia. 4. Cirrhosis secondary to alcohol, sober x2 years. HOSPITAL COURSE: Please see admission history and physical by Dr. Eric Pedersen. The patient prese nted with melena and some GI upset without hematemesis. He takes no NSAIDs. His EGD showed evidence of portal gastropathy, which was YAG lasered with improvement. The patient is discharged home. He is tolerating orals. His sodium baseline is about 129. He was 1 26 this morning. He had been held off his diuretics. I advised him to follow up with his primary ca re physician at the end of the week for further evaluation. /[id number]/MODL
[2016-12-28] MEDS ORDERED: OMEGA-3 FATTY ACIDS 1,000 MG CAP PO SCH (12:00)
--- NOTE | 2016-12-28 15:18 | ASDISCHSUM ---
Discharge Information Plan Status:Home with No Needs Medically Cleared to Leave:12/28/2016 Discharge Date:12/28/2016 12:17 PM CM D/C Disposition:Home, Routine, Self-Care ADT D/C Disposition:Home, Routine, Self-Care Projected Discharge Date:12/28/2016 12:17 PM Transportation at D/C:None or Unknown Discharge Delay Reason: Follow-Up Date:12/28/2016 12:17 PM Discharge Slot: Final Diagnosis: Placement Information Patient Contact Information Contact Name:JOO Relationship:Friend Address: Work Phone: City: [facility] Phone: [facility]/MMIT Code: Email: Financial Information Financial Class:Appointeddguillermo Kilopass Primary Plan Desc:[employer]MO OPEN ACC LOCAL Primary Plan Number:[id number] Secondary Plan Desc: Secondary Plan Number: Assessment Information [facility] CM Progress Note CM Note CM Note Notes: Pt admitted with Upper GI Bleed. Hx cirrhosis, etoh - sober x2 years. Discharging home today with no CM needs. Date Signed: 12/28/2016 03:17 PM Electronically Signed By:DARIUS Wilkerson Intervention Information Intervention Type:*Incorrect Registration Date of Service:12/27/2016 11:59 AM Patient Type:Inpatient Staff Member:SESAR Mattson Shelly Hours:0.25 Discipline: Severity:1 (0-1 Hours) Comment:Registered observation, admit order kim elkins for inpatient status.
== END 2016-12-28 12:17 | disposition home or self-care (01) | DRG 378 ==
LOC: F3E 11:47 → OBSVTOIN 11:59
PROVIDERS: ADMIT Internal Medicine; ATTEND Internal Medicine
PROC: 0W3P8ZZ Control Bleeding in Gastrointestinal Tract, Via Natural or Artificial Opening Endoscopic (ICD-10-PCS; principal; 2016-12-27 14:30)
DX: K92.2 Gastrointestinal hemorrhage, unspecified (principal); E87.1 Hypo-osmolality and hyponatremia; K70.30 Alcoholic cirrhosis of liver without ascites; K31.89 Other diseases of stomach and duodenum; E03.9 Hypothyroidism, unspecified; Z72.0 Tobacco use
CPT/HCPCS: J0171; J0330; J0696; J2353; J2704; J3010

== ENCOUNTER 2016-12-30 12:18 | Inpatient (IN) | payer OTHER ==
[2016-12-30] MEDS ORDERED: NS 1,000 ML IV ONE (12:53)
[2016-12-30] MEDS ORDERED: PANTOPRAZOLE SODIUM 80 MG in NS 100 ML IV ONE (12:59)
[2016-12-30 13:06] LABS: % IMMATURE GRANULYOCYTES 1.6 % (0.0-1.1); ABSOLUTE IMMATURE GRANULOCYTES 0.19 10^3/uL (0.00-0.10); ADD DIFF? NO; ADD MORPH? NO; ADD SCAN? NO; ATYPICAL LYMPHOCYTE FLAG 0 (0-99); FRAGMENT RBC FLAG 20 (0-99); HEMATOCRIT 25.5 % (40.0-51.0); LEFT SHIFT FLG 10 (0-99); LIPEMIA HEMOLYSIS FLAG 90 (0-99); MEAN CELL HEMOGLOBIN 28.1 pg (27.9-34.1); MEAN CELL HEMOGLOBIN CONCENTR. 35.3 g/dL (32.4-36.7); MEAN CELL VOLUME 79.7 fL (81.5-99.8); MEAN PLATELET VOLUME 10.2 fL (8.7-11.7); PLATELET CLUMPS FLAG 10 (0-99); PLATELET COUNT 198 10^3/uL (150-400); RED CELL DISTRIBUTION WIDTH 18.8 % (11.5-15.2)
--- NOTE | 2016-12-30 13:15 | EDPHY ---
H & P Time Seen by Provider: 12/30/16 12:47 HPI/ROS: CHIEF COMPLAINT: Vomited blood HISTORY OF PRESENT ILLNESS: 51-year-old male with a history of cirrhosis, esophageal varices and recent GI bleed secondary to gastritis presents with vomiting blood. He was admitted on 12/27/2016 for an upper GI bleed. Endoscopy revealed esophageal varices and gastritis. Bleeding source identified as gastritis and multiple gastric areas were cauterized. He was placed on a Protonix drip, remained stable and was discharged home 2 days ago. Hematocrit 34 on discharge. This morning he was eating, regurgitated, and noticed bright red blood in his mouth. He continues to have black stools, 1 episode today. REVIEW OF SYSTEMS: Constitutional: No fever, no chills Eyes: No visual changes ENT: No sore throat Respiratory: No cough, no shortness of breath Cardiac: No chest pain Gastrointestinal: no abdominal pain Genitourinary: No hematuria, no dysuria Musculoskeletal: No leg pain or swelling Skin: No rash Neurological: No headache, no weakness Psychiatric: No depression Past Medical/Surgical History: Cirrhosis Esophageal varices Gastritis Social History: Denies recent alcohol Smoking Status: Heavy smoker Physical Exam: General Appearance: Alert, pleasant Eyes: Pupils equal and round, no conjunctival pallor ENT, Mouth: Mucous membranes moist Neck: Normal inspection Respiratory: Lungs are clear to auscultation Cardiovascular: Regular rate and rhythm Gastrointestinal: Abdomen is soft and nontender Neurological: A&O, nonfocal exam Skin: Warm and dry, no rash Extremities: Nontender, no pedal edema Psychiatric: Mood and affect normal Constitutional: Initial Vital Signs Temperature (C) 36.5 C 12/30/16 12:22 Heart Rate 115 H 12/30/16 12:22 Respiratory Rate 20 12/30/16 12:22 Blood Pressure 115/63 12/30/16 12:22 O2 Sat (%) 96 12/30/16 12:22 O2 Delivery Mode Room Air Allergies/Adverse Reactions: No Known Allergies Allergy (Verified 12/30/16 12:20) Home Medications: Medication Instructions Recorded Benzonatate [Tessalon Pearles] 100 mg PO TID PRN 12/27/16 Fluticasone/Vilanterol [Breo 1 each IH DAILY 12/27/16 Ellipta 200-25 Mcg INH] Furosemide [Lasix 40 MG (*)] 100 mg PO DAILY 12/27/16 Herbals/Supplements -Info Only 1 ea PO DAILY 12/27/16 Yvette's Leg Cramp Tabs 1 tab PO DAILY PRN 12/27/16 Lactulose 30 ml PO TID PRN 12/27/16 Levothyroxine [Synthroid 150 mcg 150 mcg PO DAILY06 12/27/16 (*)] Multivitamins [Multivitamin (*)] 1 each PO DAILY 12/27/16 [place]-3 Fatty Acids [Fish Oil 1000 1,000 mg PO DAILY@1200 12/27/16 mg (*)] Ranitidine HCl 150 mg PO BID 12/27/16 Rifaximin [Xifaxan] 550 mg PO BID 12/27/16 Spironolactone 200 mg PO Q2D 12/27/16 Vitamin B Complex [B Complex] 1 each PO DAILY 12/27/16 Zolpidem Tartrate [Ambien 5MG (*)] 5 mg PO HS PRN 12/27/16 oxyCODONE IR [Oxycodone Ir (*)] 5 mg PO DAILY PRN 12/27/16 Spironolactone [Aldactone 50 MG 100 mg PO Q2D 12/30/16 (RX)] Medical Decision Making ED Course/Re-evaluation: This patient presents with recurrent GI bleed after recent admission for bleeding from gastritis. Heart rate is 115, blood pressure normal. IV normal saline 1 L. Protonix 80 mg IV given, followed by a Protonix drip. Hematocrit 25 today, much lower than prior hematocrit on discharge. The patient was type and screened, though no blood transfusion given for now. I consulted Dr. Thomas , who plan to for EGD later this afternoon. He suggests continuing Protonix, hold octreotide for now, given the patient did not have bleeding esophageal varices on EGD performed 3 days ago. Consulted the hospitalist service, will admit to med surg to Dr. Villalta. The patient remained stable throughout his emergency department stay. No recurrent episodes of hematemesis or hematochezia. Differential Diagnosis: Differential diagnosis includes though not limited to esophageal varices, peptic ulcer, gastritis, AVM, diverticular bleed. - Data Points Laboratory Results: Laboratory Results 12/30/16 13:00 12/30/16 13:00 12/30/16 12/30/16 12/30/16 13:00 13:00 13:00 WBC 11.89 10^3/uL H 10^3/uL (3.80-9.50) RBC 3.20 10^6/uL L 10^6/uL (4.40-6.38) Hgb 9.0 g/dL L g/dL (13.7-17.5) Hct 25.5 % L D % (40.0-51.0) MCV 79.7 fL L fL (81.5-99.8) MCH 28.1 pg pg (27.9-34.1) MCHC 35.3 g/dL g/dL (32.4-36.7) RDW 18.8 % H % (11.5-15.2) Plt Count 198 10^3/uL D 10^3/uL (150-400) MPV 10.2 fL fL (8.7-11.7) Neut % (Auto) 77.2 % H % (39.3-74.2) Lymph % (Auto) 7.0 % L % (15.0-45.0) [place] % (Auto) 13.0 % % (4.5-13.0) Eos % (Auto) 0.6 % % (0.6-7.6) Baso % (Auto) 0.6 % % (0.3-1.7) Nucleat RBC Rel Count 0.0 % % (0.0-0.2) Absolute Neuts (auto) 9.19 10^3/uL H 10^3/uL (1.70-6.50) Absolute Lymphs (auto) 0.83 10^3/uL L 10^3/uL (1.00-3.00) Absolute Monos (auto) 1.54 10^3/uL H 10^3/uL (0.30-0.80) Absolute Eos (auto) 0.07 10^3/uL 10^3/uL (0.03-0.40) Absolute Basos (auto) 0.07 10^3/uL 10^3/uL (0.02-0.10) Absolute Nucleated RBC 0.00 10^3/uL 10^3/uL (0-0.01) Immature Gran % 1.6 % H % (0.0-1.1) Immature Gran # 0.19 10^3/uL H 10^3/uL (0.00-0.10) Sodium 125 mEq/L L mEq/L (134-144) Potassium 4.9 mEq/L mEq/L (3.5-5.2) Chloride 92 mEq/L L mEq/L (97-110) Carbon Dioxide 21 mEq/l L mEq/l (22-31) Anion Gap 12 mEq/L mEq/L (8-16) BUN 31 mg/dL H mg/dL (7-23) Creatinine 0.7 mg/dL mg/dL (0.7-1.3) Estimated GFR > 60 Glucose 243 mg/dL H mg/dL (70-100) Calcium 9.1 mg/dL mg/dL (8.5-10.4) Total Bilirubin 0.5 mg/dL mg/dL (0.1-1.4) Conjugated Bilirubin 0.4 mg/dL mg/dL (0.0-0.5) Unconjugated Bilirubin 0.1 mg/dL mg/dL (0.0-1.1) AST 31 IU/L IU/L (17-59) ALT 74 IU/L H IU/L (21-72) Alkaline Phosphatase 128 IU/L H IU/L (38-126) Total Protein 7.5 g/dL g/dL (6.3-8.2) Albumin 3.9 g/dL g/dL (3.5-5.0) Lipase 286 IU/L IU/L (23-300) Patient ABO/Rh A POSITIVE Antibody Screen NEGATIVE Medications Given: Pantoprazole Sodium 80 mg/ (Sodium Chloride) 100 mls @ 10 mls/hr IV EDNOW ONE Stop: 12/30/16 22:58 Last Admin: 12/30/16 13:52 Dose: 100 mls Ondansetron HCl (Zofran) 4 mg IVP Q4HRS PRN PRN Reason: Nausea/Vomiting, Can't Take PO Stop: 06/28/17 14:54 Last Admin: 12/30/16 15:38 Dose: 4 mg Discontinued Medications Sodium Chloride (Ns) 1,000 mls @ 0 mls/hr IV EDNOW ONE; Wide Open PRN Reason: Protocol Stop: 12/30/16 12:54 Last Admin: 10/10/17 13:22 Dose: 1,000 mls Pantoprazole Sodium 80 mg/ (Sodium Chloride) 100 mls @ 200 mls/hr IV EDNOW ONE Stop: 12/30/16 13:28 Last Admin: 12/30/16 13:57 Dose: 100 mls Departure - Departure Disposition: Home, Routine, Self-Care Clinical Impression: Upper gastrointestinal hemorrhage Condition: Fair
--- NOTE | 2016-12-30 13:18 | CPEKG ---
Heart Rate: 104 RR Interval: 577 P-R Interval: 148 QRSD Interval: 80 QT Interval: 320 QTC Interval: 421 P Talmage: 57 QRS Talmage: -9 T Wave Talmage: 47 EKG Severity - OTHERWISE NORMAL ECG - EKG Impression: SINUS TACHYCARDIA Electronically Signed By: Barbara De La Fuente 30-Dec-2016 15:21:56
[2016-12-30 13:31] LABS: ALANINE AMINOTRANSFERASE 74 IU/L (21-72); ALBUMIN 3.9 g/dL (3.5-5.0); ALKALINE PHOSPHATASE 128 IU/L (38-126); ANION GAP 12 mEq/L (8-16); ASPARTATE AMINOTRANSFERASE 31 IU/L (17-59); BILIRUBIN,TOTAL 0.5 mg/dL (0.1-1.4); BILIRUBIN-CONJUGATED 0.4 mg/dL (0.0-0.5); BILIRUBIN-UNCONJUGATED 0.1 mg/dL (0.0-1.1); CALCIUM 9.1 mg/dL (8.5-10.4); CARBON DIOXIDE 21 mEq/l (22-31); CHLORIDE 92 mEq/L (97-110); CREATININE 0.7 mg/dL (0.7-1.3); GLOMERULAR FILTRATION RATE > 60; GLUCOSE 243 mg/dL (70-100); POTASSIUM 4.9 mEq/L (3.5-5.2); SODIUM 125 mEq/L (134-144); TOTAL PROTEIN 7.5 g/dL (6.3-8.2)
[2016-12-30] MEDS ORDERED: SODIUM FERRIC GLUCONAT/SUCROSE 125 MG in NS 100 ML IV ONE (14:53)
[2016-12-30] MEDS ORDERED: ONDANSETRON 4 MG/2 ML VIAL IVP PRN ×2 (14:55→17:08)
[2016-12-30] MEDS ORDERED: BENZONATATE 100 MG CAP PO PRN (16:27)
--- NOTE | 2016-12-30 16:30 | PDGENHP ---
History and Physical History and Physical: CC: Hematemesis HISTORY: This patient comes to the ER today complaining of vomiting approximately a cupful of bright red blood. There was no vomiting or abdominal pain leading up to this. Notably the patient has previous history of GI bleeds in fact was just here and discharged from this hospital 2 days ago after upper GI bleed. At that point endoscopy showed a diffuse gastritis/gastropathy suggestive of portal gastropathy with some oozing of blood from the lining of the gastric mucosa. He has a history of previous bleeding from esophageal varices due to liver disease, but those have been previously banded. At the time of the most recent endoscopy this past week he did not have any evidence or stigmata of bleeding from these varices in the did not look to be at high risk. He is not using any anti-inflammatory medicines and is not currently using any alcohol. 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 I have reviewed the list and ordered appropriate medicines. 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 -probable coagulopathy related to his chronic liver disease -ongoing hyponatremia, very close to his baseline, related to his liver disease PLANS: I reviewed the case in detail with Dr. Erik Thomas IV Protonix Close following of hemodynamic parameters and resuscitation as needed with fluids Blood is in the blood bank at this time and he may need transfusion Follow blood counts closely EGD will be performed this afternoon by Dr. Thomas, further plans after that I have reviewed the patient's past medical records as part of this assessment, including previous hospital admission records and laboratory values
--- NOTE | 2016-12-30 16:40 | PDANEPAE ---
ANE History of Present Illness gi bleed ANE Past Medical History - Cardiovascular History Hx Hypertension: No Hx Arrhythmias: No Hx Chest Pain: No Hx Coronary Artery / Peripheral Vascular Disease: No Hx CHF / Valvular Disease: No Hx Palpitations: No - Pulmonary History Hx COPD: No Hx Asthma/Reactive Airway Disease: No Hx Recent Upper Respiratory Infection: No Hx Oxygen in Use at Home: No Hx Sleep Apnea: No - Neurologic History Hx Cerebrovascular Accident: No Hx Seizures: No Hx Dementia: No Neurologic History Comment: Hx of traumatic brain injury - Endocrine History Hx Diabetes: No Hypothyroid: Yes - Renal History Hx Renal Disorders: No - Liver History Hx Hepatic Disorders: Yes Hepatic History Comment: ETOH hepatitis, cirrhosis, ascites - Neurological & Psychiatric Hx Hx Neurological and Psychiatric Disorders: Yes Neurological / Psychiatric History Comment: Hx of TBI, anxiety, depression - Cancer History Hx Cancer: No - Congenital Disorder History Hx Congenital Disorders: No - GI History Hx Gastrointestinal Disorders: Yes Gastrointestinal History Comment: Hx of GI bleed - Other Health History Other Health History: Hypothyroid, L3-4 disk herniation - Chronic Pain History Chronic Pain: Yes - Surgical History Prior Surgeries: Hernia repair 2009, banding of esophageal varices 2011 ANE Review of Systems Review of Systems: ANE Patient History - Allergies Allergies/Adverse Reactions: No Known Allergies Allergy (Verified 12/30/16 12:20) - Home Medications Home Medications: Benzonatate [Tessalon Pearles] 100 mg PO TID PRN 12/27/16 [Last Taken Unknown] Fluticasone/Vilanterol [Breo Ellipta 200-25 Mcg INH] 1 each IH DAILY 12/27/16 [ Last Taken 12/26/16] Furosemide [Lasix 40 MG (*)] 100 mg PO DAILY 12/27/16 [Last Taken 12/30/16] Herbals/Supplements -Info Only 1 ea PO DAILY 12/27/16 [Last Taken Unknown] Yvette's Leg Cramp Tabs 1 tab PO DAILY PRN 12/27/16 [Last Taken Unknown] Lactulose 30 ml PO TID PRN 12/27/16 [Last Taken 12/30/16] Levothyroxine [Synthroid 150 mcg (*)] 150 mcg PO DAILY06 12/27/16 [Last Taken ] Multivitamins [Multivitamin (*)] 1 each PO DAILY 12/27/16 [Last Taken 12/29/16] Caliente-3 Fatty Acids [Fish Oil 1000 mg (*)] 1,000 mg PO DAILY@1200 12/27/16 [ Last Taken 12/29/16] Ranitidine HCl 150 mg PO BID 12/27/16 [Last Taken 12/30/16] Rifaximin [Xifaxan] 550 mg PO BID 12/27/16 [Last Taken 12/30/16] Spironolactone 200 mg PO Q2D 12/27/16 [Last Taken 12/29/16] Vitamin B Complex [B Complex] 1 each PO DAILY 12/27/16 [Last Taken 12/29/16] Zolpidem Tartrate [Ambien 5MG (*)] 5 mg PO HS PRN 12/27/16 [Last Taken 12/29/16] oxyCODONE IR [Oxycodone Ir (*)] 5 mg PO DAILY PRN 12/27/16 [Last Taken 12/30/16 09:00] Spironolactone [Aldactone 50 MG (RX)] 100 mg PO Q2D 12/30/16 [Last Taken ] - NPO status NPO Since - Liquids (Date): 12/30/16 NPO Since - Liquids (Time): 11:45 NPO Since - Solids (Date): 12/30/16 NPO Since - Solids (Time): 11:45 - Smoking Hx Smoking Status: Heavy smoker - Family Anes Hx Family Hx Anesthesia Complications: None ANE Labs/Vital Signs - Labs Result Diagrams: 12/30/16 13:00 12/30/16 13:00 - Vital Signs Blood Pressure: 95/64 Heart Rate: 100 Respiratory Rate: 18 O2 Sat (%): 97 Height: 167.64 cm Weight: 68.039 kg ANE Physical Exam - Airway Neck exam: FROM Mallampati Score: Class 1 Mouth exam: normal dental/mouth exam - Pulmonary Pulmonary: no respiratory distress - Cardiovascular Cardiovascular: regular rate and rhythym - ASA Status ASA Status: III ANE Anesthesia Plan Anesthesia Plan: general endotracheal anesthesia
[2016-12-30] MEDS ORDERED: ROCURONIUM 50 MG/5 ML VIAL ONE (16:43)
[2016-12-30] MEDS ORDERED: SUCCINYLCHOLINE CHLORIDE*ANESTHESIA ONLY*200 MG/10 ML SYR IVP ONE (16:43)
[2016-12-30] MEDS ORDERED: PROPOFOL/EMULSION 500 MG/50 ML BOTTLE IV ONE (16:43)
[2016-12-30] MEDS ORDERED: fentaNYL 100 MCG/2 ML INJ ONE (16:43)
[2016-12-30] MEDS ORDERED: PROMETHAZINE HCL 25 MG/ML INJ IVP PRN (17:08)
[2016-12-30] MEDS ORDERED: HYDROCODONE/APAP 5/325 TAB PO PRN (17:08)
[2016-12-30] MEDS ORDERED: NALOXONE HCL 0.4 MG/ML INJ IVP PRN (17:08)
[2016-12-30] MEDS ORDERED: fentaNYL 100 MCG/2 ML INJ IVP PRN (17:08)
[2016-12-30] MEDS ORDERED: ONDANSETRON 4 MG/2 ML VIAL ONE (17:10)
[2016-12-30] MEDS ORDERED: DEXAMETHASONE 4 MG/ML VIAL ONE (17:10)
--- NOTE | 2016-12-30 18:43 | POSTOPPROG ---
Post Op Note Date of Operation: 12/30/16 Surgeon: Erik Thomas Anesthesia: GET(General Endotracheal) Pre-op Diagnosis: GI bleed Post-op Diagnosis: bleeding gastropathy, non-bleeding varices Procedure: EGD/APC/Clips Inf/Abcess present in the surg proc area at time of surgery?: No EBL: Minimal
--- NOTE | 2016-12-30 18:45 | SOAPPROG ---
RAD[facility] Progress Note Assessment/Plan: Assessment:EGD for recurrent gastropathy bleeding. One significant site treated with APC and 3 clips, several minor sites treated with APC. 2+ esophageal varices, no signs that these had bled so I elected not to band them. Plan:CL diet. Follow closely. Repeat EGD for any suspicion of re-bleeding. 12/30/16 18:43 Objective: Vital Signs Temp Pulse Resp BP Pulse Ox 36.9 C 100 18 95/64 L 97 12/30/16 14:37 12/30/16 16:40 12/30/16 16:40 12/30/16 16:40 12/30/16 16:40 ICD10 Worksheet Patient Problems: Problems Problem Status Onset Upper gastrointestinal hemorrhage Acute Abdominal pain Acute Ascites Acute GIB (gastrointestinal bleeding) Acute Hyponatremia Acute Liver disease, chronic, due to alcohol Acute
[2016-12-30 19:31] LABS: % SATURATION 6 % (20-55); TOTAL IRON BINDING CAPACITY 391 ug/dL (260-490)
[2016-12-30 20:45] LABS: HEMATOCRIT 23.1 % (40.0-51.0); HEMOGLOBIN 8.3 g/dL (13.7-17.5)
[2016-12-30] MEDS: RIFAXIMIN 550 MG TAB PO SCH (21:32)
[2016-12-30] MEDS: ZOLPIDEM TARTRATE 5 MG TAB PO PRN (21:32)
[2016-12-30] MEDS: NS 1,000 ML IV SCH (21:39)
[2016-12-30] MEDS: MAGNESIUM OXIDE 400 MG TAB PO SCH (22:05)
[2016-12-30] MEDS: NICOTINE 21 MG/24 HR PATCH TD SCH (22:05)
[2016-12-31] MEDS: ACETAMINOPHEN 325 MG TAB PO PRN (04:05)
[2016-12-31] MEDS: LEVOTHYROXINE 150 MCG TAB PO SCH (04:06)
--- NOTE | 2016-12-31 05:21 | GPN ---
[f rep st] PROCEDURE NOTE PROCEDURE PERFORMED: Gastroscopy with argon plasma coagulation and endo clipping. INDICATIONS: Mr. Gudino is a 51-year-old male, who was admitted three days ago for upper GI bleed and had a source in the area of his alcoholic gastropathy in the fundus. This was treated with argon plasma coagulation and was able to be discharged the next day. He re-presents today with hematemesi s. His hemoglobin has dropped to 9 from discharge of 11.8 two days ago. Endoscopy is being performe d to evaluate and treat. After proper consent was obtained. Patient in left lateral decubitus position and received general a nesthesia with endotracheal intubation. Video gastroscope was introduced through the mouth, down esophagus, stomach, past the pylorus and int o the duodenum. FINDINGS: 1. The esophagus has 2+ varices but no signs of recent bleeding. 2. In the fundus was a large clot that was evacuated over the course of 90 minutes with unroofing an d suctioning. At one point I did switch over to double channel therapeutic scope. Eventually this was unroofed and several small bleeding sites were seen which were treated with argon plasma coagulation. A secondary bleeding site, which was much more significant in nature, was treated first with the brenda n plasma coagulation and then with 3 endo clips with good hemostasis achieved. At the end of the procedure, which took a total of 120 minutes, there was no evidence of any active b leeding or oozing. At this point, instrument was removed. Patient tolerated procedure well. He was returned to recover y room in stable condition. IMPRESSION: 1. Multiple bleeding sites in the fundus and area of gastropathy. 2. Nonbleeding 2+ esophageal varices. RECOMMENDATIONS: Patient will stay on IV Protonix, clear liquid diet and will follow his labs. If t here is any suspicion of rebleeding, I will repeat this procedure as needed. Copy requested to: Dr. Lauren Rodriguez [facility] Dept. of Hepatology /[id number]/MODL
[2016-12-31 05:42] LABS: % IMMATURE GRANULYOCYTES 1.2 % (0.0-1.1); ABSOLUTE IMMATURE GRANULOCYTES 0.09 10^3/uL (0.00-0.10); ABSOLUTE NRBC COUNT 0.02 10^3/uL (0-0.01); ADD DIFF? NO; ADD MORPH? NO; ADD SCAN? NO; ATYPICAL LYMPHOCYTE FLAG 0 (0-99); FRAGMENT RBC FLAG 20 (0-99); HEMATOCRIT 23.6 % (40.0-51.0); LEFT SHIFT FLG 10 (0-99); LIPEMIA HEMOLYSIS FLAG 90 (0-99); MEAN CELL HEMOGLOBIN 28.1 pg (27.9-34.1); MEAN CELL HEMOGLOBIN CONCENTR. 33.9 g/dL (32.4-36.7); MEAN CELL VOLUME 82.8 fL (81.5-99.8); NRBC-AUTO% 0.3 % (0.0-0.2); PLATELET CLUMPS FLAG 0 (0-99); PLATELET COUNT 119 10^3/uL (150-400); RED BLOOD CELL COUNT 2.85 10^6/uL (4.40-6.38); RED CELL DISTRIBUTION WIDTH 19.1 % (11.5-15.2)
[2016-12-31 05:49] LABS: ANION GAP 9 mEq/L (8-16); CALCIUM 8.6 mg/dL (8.5-10.4); CARBON DIOXIDE 21 mEq/l (22-31); CHLORIDE 99 mEq/L (97-110); CREATININE 0.6 mg/dL (0.7-1.3); GLOMERULAR FILTRATION RATE > 60; GLUCOSE 125 mg/dL (70-100); POTASSIUM 4.6 mEq/L (3.5-5.2); SODIUM 129 mEq/L (134-144)
[2016-12-31] MEDS: oxyCODONE IR 5 MG TAB PO PRN (06:08)
[2016-12-31] MEDS ORDERED: SODIUM FERRIC GLUCONAT/SUCROSE 125 MG in NS 100 ML IV ONE (08:08)
[2016-12-31] MEDS: Fluticasone/Vilanterol [Breo Ellipta 200-25 Mcg Inh] 1 EACH IH SCH (08:45)
[2016-12-31] MEDS ORDERED: SPIRONOLACTONE 100 MG TAB PO SCH (09:00)
[2016-12-31] MEDS: FUROSEMIDE 40 MG TAB PO SCH (09:05)
[2016-12-31] MEDS: MAGNESIUM OXIDE 400 MG TAB PO SCH ×2 (09:06→21:49)
[2016-12-31] MEDS: RIFAXIMIN 550 MG TAB PO SCH ×2 (09:08→21:49)
[2016-12-31] MEDS: NICOTINE 21 MG/24 HR PATCH TD SCH (09:09)
--- NOTE | 2016-12-31 10:17 | PDMN ---
Medical Necessity Medical necessity: Pt meets INPT criteria per MD and [facility] [place] GI Bleeding, Upper (pt presented to ED with hematemesis; EGD finding of multiple bleeding sites in the fundus and area of gastropathy requiring argon plasma coagulation and endo clipping; hx esophageal varices, recent UGI bleed, hemoglobin dropped from 11.8 at DC 2 days ago to 9 on admission to 8 on 12/31/16).
--- NOTE | 2016-12-31 10:50 | ASMTCASEMG ---
Living Arrangements What is your living Answers: Alone arrangement? Who do you live with? Type Of Residence What kind of residence do Answers: House you live in? Discharge Plan Comments Coordination Status Comments Notes: Pt is a 51 y/o man admitted w/ an upper GI bleed. Pt was recently at [facility] 2 days ago for the same presentation. No therapies ordered at this time. Pt will most likely d/c independent when he is medically stable. CM available for changes. Date Signed: 12/31/2016 10:49 AM Electronically Signed By:RACHEL Underwood
[2016-12-31] MEDS: CEPACOL LOZENGE PO PRN ×3 (10:58→16:39)
[2016-12-31] MEDS: LACTULOSE 20 GM/30 ML UDCUP PO PRN ×2 (10:58→16:39)
[2016-12-31] MEDS: PANTOPRAZOLE SODIUM 40 MG in NS 100 ML IV SCH ×2 (10:59→21:49)
--- NOTE | 2016-12-31 11:40 | HOSPPROG ---
Hospitalist Progress Note Assessment/Plan: DIAGNOSES: -acute upper GI bleed with some hemodynamic abnormalities and a significant decrease in hemoglobin from 2 days ago, in a patient with known portal gastropathy from which he was bleeding just recently, as well as known esophageal varices, these were last assessed by endoscopy several days ago. -iron deficiency is present and is moderately severe, indicating that he probably has been oozing from his stomach for quite some time without realizing it -probable coagulopathy related to his chronic liver disease -ongoing hyponatremia, very close to his baseline, related to his liver disease His hemoglobin is decreased at another point today though he has not noticed any blood from mouth or rectum or otherwise. It may be that this is partly dilutional but will need to watch very closely to see that he does not have continued ongoing bleeding. I did review with Dr. Thomas his endoscopy results which showed again gastric bleeding without esophageal bleeding. There was diffuse gastropathy several oozing sites and a large adherent clot. PLANS: -repeat hemoglobin at noon today -continue clear liquids only -continue IV proton pump inhibitor -will review again with Dr. 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, my review: Exam: alert oriented , looks somewhat uncomfortable skin warm dry color pale resps not labored lungs clear BSs heart regular abd soft nondistended nontender, bowel sounds present limbs warm, no edema iv site ok Lab data: Hemoglobin is decreased further at 8 Sodium little bit better 129 Iron studies show a ferritin of 11 and very low iron binding saturation is well Objective: Vital Signs Temp Pulse Resp BP Pulse Ox 36.5 C 83 16 101/67 97 12/31/16 11:19 12/31/16 11:19 12/31/16 11:19 12/31/16 11:19 12/31/16 11:19 Laboratory Results 12/31/16 04:15 12/31/16 04:15 12/30/16 12/31/16 01/01/17 06:59 06:59 06:59 Intake Total 1530 Output Total 1350 1000 Balance 180 -1000 - Time Spent With Patient Time Spent with Patient: greater than 35 minutes Time Spent with Patient: Greater than 35 minutes spent on this patients care, greater than 50% of time spent counseling, educating, and coordinating care regarding the above mentioned plan. ICD10 Worksheet Patient Problems: Problems Problem Status Onset Upper gastrointestinal hemorrhage Acute Abdominal pain Acute Ascites Acute GIB (gastrointestinal bleeding) Acute Hyponatremia Acute Liver disease, chronic, due to alcohol Acute
[2016-12-31 11:56] LABS: HEMATOCRIT 26.6 % (40.0-51.0); HEMOGLOBIN 8.7 g/dL (13.7-17.5)
[2016-12-31] MEDS: NS 1,000 ML IV SCH (13:31)
[2016-12-31] MEDS ORDERED: traMADol 50 MG TAB PO PRN (16:06)
[2016-12-31] MEDS ORDERED: ALBUTEROL 60 PUFFS/8 GM MDI IH PRN (16:07)
--- NOTE | 2016-12-31 16:55 | SOAPPROG ---
RADHA Progress Note Assessment/Plan: Assessment:EGD for recurrent gastropathy bleeding. One significant site treated with APC and 3 clips, several minor sites treated with APC. 2+ esophageal varices, no signs that these had bled so I elected not to band them. Plan:CL diet. Follow closely. Repeat EGD for any suspicion of re-bleeding. 12/30/16 18:43 12/31/16 16:53 Stable x 24 hours, H/H increasing a little. Tolerating CL diet. Would continue to observe overnight, if no further signs of bleeding could go home tomorrow, on chronic PPIs. Objective: Vital Signs Temp Pulse Resp BP Pulse Ox 36.9 C 87 12 91/59 L 98 12/31/16 15:42 12/31/16 15:42 12/31/16 15:42 12/31/16 15:42 12/31/16 15:42 Laboratory Results 12/31/16 11:38 12/31/16 04:15 12/30/16 12/31/16 01/01/17 05:59 05:59 05:59 Intake Total 1530 Output Total 1350 1000 Balance 180 -1000 ICD10 Worksheet Patient Problems: Problems Problem Status Onset Upper gastrointestinal hemorrhage Acute Abdominal pain Acute Ascites Acute GIB (gastrointestinal bleeding) Acute Hyponatremia Acute Liver disease, chronic, due to alcohol Acute
[2016-12-31] MEDS: FLUTICASONE/SALMETER 500/50MCG DISKUS IH SCH (19:59)
[2016-12-31] MEDS: ZOLPIDEM TARTRATE 5 MG TAB PO PRN (21:57)
[2017-01-01 05:07] LABS: % IMMATURE GRANULYOCYTES 0.8 % (0.0-1.1); ABSOLUTE IMMATURE GRANULOCYTES 0.05 10^3/uL (0.00-0.10); ABSOLUTE NRBC COUNT 0.04 10^3/uL (0-0.01); ADD DIFF? NO; ADD MORPH? NO; ADD SCAN? NO; ATYPICAL LYMPHOCYTE FLAG 0 (0-99); FRAGMENT RBC FLAG 20 (0-99); HEMATOCRIT 24.7 % (40.0-51.0); LEFT SHIFT FLG 0 (0-99); LIPEMIA HEMOLYSIS FLAG 80 (0-99); MEAN CELL HEMOGLOBIN 27.7 pg (27.9-34.1); MEAN CELL HEMOGLOBIN CONCENTR. 32.4 g/dL (32.4-36.7); MEAN CELL VOLUME 85.5 fL (81.5-99.8); MEAN PLATELET VOLUME 9.9 fL (8.7-11.7); NRBC-AUTO% 0.7 % (0.0-0.2); PLATELET CLUMPS FLAG 0 (0-99); PLATELET COUNT 129 10^3/uL (150-400); RED BLOOD CELL COUNT 2.89 10^6/uL (4.40-6.38); RED CELL DISTRIBUTION WIDTH 19.9 % (11.5-15.2)
[2017-01-01 05:13] LABS: ANION GAP 8 mEq/L (8-16); CALCIUM 8.5 mg/dL (8.5-10.4); CARBON DIOXIDE 22 mEq/l (22-31); CHLORIDE 103 mEq/L (97-110); CREATININE 0.6 mg/dL (0.7-1.3); GLOMERULAR FILTRATION RATE > 60; GLUCOSE 90 mg/dL (70-100); POTASSIUM 4.3 mEq/L (3.5-5.2); SODIUM 133 mEq/L (134-144)
[2017-01-01] MEDS: CEPACOL LOZENGE PO PRN ×4 (06:21→23:53)
[2017-01-01] MEDS: LEVOTHYROXINE 150 MCG TAB PO SCH (06:21)
[2017-01-01] MEDS: FUROSEMIDE 40 MG TAB PO SCH (07:49)
[2017-01-01] MEDS: ACETAMINOPHEN 325 MG TAB PO PRN (07:49)
[2017-01-01] MEDS: RIFAXIMIN 550 MG TAB PO SCH ×2 (07:50→21:00)
[2017-01-01] MEDS: oxyCODONE IR 5 MG TAB PO PRN ×2 (07:51→17:13)
[2017-01-01] MEDS: MAGNESIUM OXIDE 400 MG TAB PO SCH ×2 (07:51→21:00)
[2017-01-01] MEDS: NICOTINE 21 MG/24 HR PATCH TD SCH (07:53)
[2017-01-01] MEDS: PANTOPRAZOLE SODIUM 40 MG in NS 100 ML IV SCH ×2 (07:59→21:01)
[2017-01-01] MEDS ORDERED: SPIRONOLACTONE 100 MG TAB PO SCH (09:00)
[2017-01-01] MEDS: LACTULOSE 20 GM/30 ML UDCUP PO PRN ×2 (10:03→19:21)
[2017-01-01] MEDS: FLUTICASONE/SALMETER 500/50MCG DISKUS IH SCH ×2 (10:05→21:01)
[2017-01-01] MEDS: Fluticasone/Vilanterol [Breo Ellipta 200-25 Mcg Inh] 1 EACH IH SCH (10:06)
--- NOTE | 2017-01-01 16:13 | ASMTCMCOM ---
CM Note CM Note Notes: Chart reviewed. Met with pt to review d/c POC. He reports independent and has good support from his exwife. He is able to meet his own needs and do his adls without assistance, Works here in [place]. No needs identified. Likely to dc home tomorrow. CM available should needs arise. Date Signed: 01/01/2017 04:12 PM Electronically Signed By:Neelam Yee RN
--- NOTE | 2017-01-01 17:46 | PDDCSUM ---
Discharge Summary Discharge Summary: DIAGNOSES: -ACUTE UPPER GI BLEED -ACUTE POST HEMORRHAGIC ANEMIA -IRON DEFICIENCY ANEMIA -PORTAL GASTROPATHY CAUSE OF BLEEDING -ESOPHAGEAL VARICES S/P PRIOR BANDING, NO EVIDENCE OF RECENT BLEEDING -ALCOHOLIC CIRRHOSIS WITH PORTAL HYPERTENSION, SOBER FOR > 2 YEARS CONSULTATION: Dr Erik Thomas PROCEDURES: EGD, with evacuation of clot, argon coagulation of multiple bleeding sites, 3 clips placed on bleeding sites HOSPITAL COURSE: This patient, who had just been here with ugi bleed from portal gastropathy, returned with another bleeding episode. There was some tachycardia and hypotension, but he responded overall well to hydration. His Hg dropped from 11.8 to 8 but remained stable there and transfusion was not needed. At endoscopy he again had portal gastropathy as the cause of bleeding. Endoscopic therapies did give good hemostasis. He was treated with PPI. He is now eating and stable for DC to home with no evidence of ongoing bleeding. Notably he has iron deficiency and microcytosis, so it is suspected he has actually been bleeding from this gastropathy for some time. He was given IV iron dose x2 here. He will take iron at home. FOLLOW UP: with Dr Thomas next week MEDICATION CHANGES: PROTONIX 40 BID he is given some tramadol for bad headaches which may in part be due to his anemia
[2017-01-01] MEDS: ZOLPIDEM TARTRATE 5 MG TAB PO PRN (21:00)
[2017-01-01 23:31] VITALS: RESP 18; O2SAT 96
[2017-01-02] MEDS: CEPACOL LOZENGE PO PRN (02:59)
[2017-01-02 03:04] VITALS: BP 94/62; PULSE 90; TEMP 98.2
[2017-01-02 04:30] LABS: % IMMATURE GRANULYOCYTES 1.5 % (0.0-1.1); ABSOLUTE IMMATURE GRANULOCYTES 0.11 10^3/uL (0.00-0.10); ABSOLUTE NRBC COUNT 0.04 10^3/uL (0-0.01); ADD DIFF? NO; ADD MORPH? YES; ADD SCAN? NO; ATYPICAL LYMPHOCYTE FLAG 10 (0-99); FRAGMENT RBC FLAG 20 (0-99); HEMATOCRIT 25.9 % (40.0-51.0); HEMOGLOBIN 8.7 g/dL (13.7-17.5); LEFT SHIFT FLG 0 (0-99); LIPEMIA HEMOLYSIS FLAG 80 (0-99); MEAN CELL HEMOGLOBIN 28.5 pg (27.9-34.1); MEAN CELL HEMOGLOBIN CONCENTR. 33.6 g/dL (32.4-36.7); MEAN CELL VOLUME 84.9 fL (81.5-99.8); MEAN PLATELET VOLUME 9.3 fL (8.7-11.7); NRBC-AUTO% 0.5 % (0.0-0.2); PLATELET CLUMPS FLAG 0 (0-99); PLATELET COUNT 134 10^3/uL (150-400); RED BLOOD CELL COUNT 3.05 10^6/uL (4.40-6.38)
[2017-01-02 04:34] LABS: RED CELL DISTRIBUTION WIDTH 20.4 % (11.5-15.2)
[2017-01-02 05:45] LABS: MACROCYTES 1+; MICROCYTES 1+; PLATELET ESTIMATE DECREASED (ADEQ); POLYCHROMASIA 1+
--- NOTE | 2017-01-02 08:32 | HOSPPROG ---
Hospitalist Progress Note Assessment/Plan: DIAGNOSES: -acute upper GI bleed with some hemodynamic abnormalities and a significant decrease in hemoglobin from 2 days ago, in a patient with known portal gastropathy from which he was bleeding just recently, as well as known esophageal varices, these were last assessed by endoscopy several days ago. -iron deficiency is present and is moderately severe, indicating that he probably has been oozing from his stomach for quite some time without realizing it -probable coagulopathy related to his chronic liver disease -ongoing hyponatremia, very close to his baseline, related to his liver disease PLANS: At this time patient is medically stable for discharge however he did take 1 5 mg oxycodone for headache this afternoon. He is here from his home in [place] , [place] and is unable to get a ride home, or unable to allow him to drive safely after the oxycodone. He did drive himself here initially to the hospital. He will need to be may be observed overnight has were unable to arrange for care I would or get him another right home at this time. 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: Exam: alert oriented , looks somewhat uncomfortable skin warm dry color pale resps not labored lungs clear BSs heart regular abd soft nondistended nontender, bowel sounds present limbs warm, no edema iv site ok Objective: Vital Signs Temp Pulse Resp BP Pulse Ox 36.8 C 90 18 94/62 L 96 01/02/17 03:04 01/02/17 03:04 01/02/17 03:04 01/02/17 03:04 01/02/17 03:04 Laboratory Results 01/02/17 04:24 01/01/17 04:19 01/01/17 01/02/17 01/03/17 06:59 06:59 06:59 Intake Total 2850 Output Total 4300 2100 Balance -1450 -2100 ICD10 Worksheet Patient Problems: Problems Problem Status Onset Abdominal pain Acute Ascites Acute GIB (gastrointestinal bleeding) Acute Hyponatremia Acute Liver disease, chronic, due to alcohol Acute Upper gastrointestinal hemorrhage Acute
--- NOTE | 2017-01-02 15:01 | ASDISCHSUM ---
Discharge Information Plan Status:Home with No Needs Medically Cleared to Leave: Discharge Date:01/02/2017 05:29 AM CM D/C Disposition:Home, Routine, Self-Care ADT D/C Disposition:Home, Routine, Self-Care Projected Discharge Date:01/01/2017 12:00 AM Transportation at D/C: Discharge Delay Reason: Follow-Up Date:01/01/2017 12:00 AM Discharge Slot: Final Diagnosis: Placement Information Patient Contact Information Contact Name:JOO Relationship:Friend Address: Work Phone: City: [facility] [place] Phone: State/[place] Code: Email: Financial Information Financial Class:[employer] Primary Plan Desc:[employer] OPEN ACC LOCAL Primary Plan Number:[id number] Secondary Plan Desc: Secondary Plan Number: Assessment Information [facility] Initial CM Assessment Living Arrangements What is your living Answers: Alone arrangement? Who do you live with? Type Of Residence What kind of residence do Answers: House you live in? Discharge Plan Comments Coordination Status Comments Notes: Pt is a 51 y/o man admitted w/ an upper GI bleed. Pt was recently at [facility] 2 days ago for the same presentation. No therapies ordered at this time. Pt will most likely d/c independent when he is medically stable. CM available for changes. Date Signed: 12/31/2016 10:49 AM Electronically Signed By:RACHEL Underwood [facility] CM Progress Note CM Note CM Note Notes: Chart reviewed. Met with pt to review d/c POC. He reports independent and has good support from his exwife. He is able to meet his own needs and do his adls without assistance, Works here in [place]. No needs identified. Likely to dc home tomorrow. CM available should needs arise. Date Signed: 01/01/2017 04:12 PM Electronically Signed By:Neelam Yee RN Intervention Information
== END 2017-01-02 05:29 | disposition home or self-care (01) | DRG 327 ==
LOC: OBSVTOIN 13:34 → F3E 14:32
PROVIDERS: ADMIT Internal Medicine; ATTEND Internal Medicine
DX: K31.89 Other diseases of stomach and duodenum (principal); K92.2 Gastrointestinal hemorrhage, unspecified; K76.6 Portal hypertension; I85.10 Secondary esophageal varices without bleeding; K70.9 Alcoholic liver disease, unspecified; E87.1 Hypo-osmolality and hyponatremia; D62 Acute posthemorrhagic anemia; D50.9 Iron deficiency anemia, unspecified; F10.21 Alcohol dependence, in remission; F17.210 Nicotine dependence, cigarettes, uncomplicated
CPT/HCPCS: 96365; J0171; J0330; J1100; J2405; J2704; J2916; J3010

== ENCOUNTER 2017-01-07 21:51 | Inpatient (IN) | payer OTHER ==
--- NOTE | 2017-01-07 22:22 | EDPHY ---
HPI/HX/ROS/PE/MDM Narrative: CHIEF COMPLAINT: Low hemoglobin, hyponatremia, headache HISTORY OF PRESENT ILLNESS: The patient is a 51 y/o male with a history of hyponatremia, cirrhosis, and a GI bleed presenting with low hemoglobin, hyponatremia, and headache. He has a history of a upper GI bleed which was cauterized for which he was released from the hospital Thursday with a hemoglobin of 8. His hemoglobin increased slightly since his discharge but decreased yesterday and again today. He was seen by [facility] this afternoon for repeat labs, and at that time was documented to have a hemoglobin of 7. His sodium was at 119 yesterday. He is experiencing a headache and some confusion, though the confusion may be due to pain medication. He had a "funny feeling" in his chest earlier that lasted less than a minute. He has associated abdominal pain and nausea. He had a stool today that may have had some bloody mucus. He denies faintness, cough, dark or tarry stool. No fever, chills, shortness of breath, palpitations, vomiting, diarrhea, urinary complaints, lightheadedness. REVIEW OF SYSTEMS: Aside from elements discussed in the HPI, a comprehensive 10-point review of systems was reviewed and is negative. PAST MEDICAL HISTORY: Hyponatremia, GI bleed, cirrhosis SOCIAL HISTORY: Lives in [place], employed, VITAL SIGNS: Reviewed by me GENERAL: Well-developed, well-nourished, resting comfortably in no respiratory distress. HEENT: Atraumatic. Eyes: No icterus, no injection. Mouth: moist mucous membranes. No erythema or lesions. Neck: supple with no adenopathy. LUNGS: Clear to auscultation bilaterally, no wheezes, rhonchi or rales. CARDIAC: Regular rate and rhythm, no rubs, murmurs or gallops. ABDOMEN: Diffuse mild tenderness, more significant in the upper quadrants. No guarding or rebound. No distension. BACK: No CVA tenderness. RECTAL: Mucus on the glove with streaks of blood. EXTREMITIES: No trauma. No edema. Range of motion is normal throughout. NEURO: Alert and oriented, grossly nonfocal. SKIN: Warm and dry, no rash. PSYCHIATRIC: Normal mentation, no agitation. Portions of this note were transcribed by a biomedical engineering technician. I personally performed a history, physical exam, medical decision making, and confirmed accuracy of information the transcribed note. ED Course: 12-LEAD EKG: Please see the full report in [facility]. My interpretation: Normal sinus rhythm The patient is a 51 y/o male with a history of cirrhosis, GI bleeds, and hyponatremia complaining of low hemoglobin at 7 and hyponatremia at 119. He was discharged from the hospital 5 days ago following upper GI bleed. Evaluation the emergency department included nonischemic EKG, relatively stable vital signs although at 1 point the patient's blood pressure dipped to 98 systolic, sodium of 117, and hemoglobin and hematocrit of 9 and 26. Patient's stool was positive for occult blood and was slightly bloody on examination. Patient's course was discussed with the hospitalist service, Dr. Torres. Patient will be admitted to step-down for further evaluation of his significant hyponatremia as well as his GI hemorrhage. MDM: Differential diagnosis of the patient's history of GI bleeding was considered including but not limited to ulcer disease, gastritis, Anabella-George tear, esophageal varices. Differential diagnosis for the patient's hyponatremia was also considered including but not limited to dehydration, fluid overload, cirrhosis, ascites. r - Data Points Laboratory Results: Laboratory Results 01/07/17 22:05 01/07/17 22:05 01/07/17 01/07/17 01/07/17 22:34 22:05 22:05 WBC RBC Hgb Hct MCV MCH MCHC RDW Plt Count MPV Neut % (Auto) Lymph % (Auto) [place] % (Auto) Eos % (Auto) Baso % (Auto) Nucleat RBC Rel Count Absolute Neuts (auto) Absolute Lymphs (auto) Absolute Monos (auto) Absolute Eos (auto) Absolute Basos (auto) Absolute Nucleated RBC Immature Gran % Immature Gran # PT 15.9 SEC H SEC (12.0-15.0) INR 1.27 H (0.83-1.16) Sodium Potassium Chloride Carbon Dioxide Anion Gap BUN Creatinine Estimated GFR Glucose Calcium Total Bilirubin Conjugated Bilirubin Unconjugated Bilirubin AST ALT Alkaline Phosphatase Troponin I Total Protein Albumin Lipase Stool Occult Bld Scrn POSITIVE H (NEGATIVE) Patient ABO/Rh A POSITIVE Antibody Screen NEGATIVE Crossmatch IS Only See Detail 01/07/17 01/07/17 22:05 22:05 WBC 9.08 10^3/uL 10^3/uL (3.80-9.50) RBC 3.49 10^6/uL L 10^6/uL (4.40-6.38) Hgb 9.7 g/dL L g/dL (13.7-17.5) Hct 28.7 % L % (40.0-51.0) MCV 82.2 fL fL (81.5-99.8) MCH 27.8 pg L pg (27.9-34.1) MCHC 33.8 g/dL g/dL (32.4-36.7) RDW 19.9 % H % (11.5-15.2) Plt Count 178 10^3/uL 10^3/uL (150-400) MPV 9.6 fL fL (8.7-11.7) Neut % (Auto) 74.3 % H % (39.3-74.2) Lymph % (Auto) 9.0 % L % (15.0-45.0) [place] % (Auto) 14.6 % H % (4.5-13.0) Eos % (Auto) 0.8 % % (0.6-7.6) Baso % (Auto) 0.3 % % (0.3-1.7) Nucleat RBC Rel Count 0.0 % % (0.0-0.2) Absolute Neuts (auto) 6.74 10^3/uL H 10^3/uL (1.70-6.50) Absolute Lymphs (auto) 0.82 10^3/uL L 10^3/uL (1.00-3.00) Absolute Monos (auto) 1.33 10^3/uL H 10^3/uL (0.30-0.80) Absolute Eos (auto) 0.07 10^3/uL 10^3/uL (0.03-0.40) Absolute Basos (auto) 0.03 10^3/uL 10^3/uL (0.02-0.10) Absolute Nucleated RBC 0.00 10^3/uL 10^3/uL (0-0.01) Immature Gran % 1.0 % % (0.0-1.1) Immature Gran # 0.09 10^3/uL 10^3/uL (0.00-0.10) PT INR Sodium 117 mEq/L L* mEq/L (134-144) Potassium 5.3 mEq/L H mEq/L (3.5-5.2) Chloride 89 mEq/L L mEq/L (97-110) Carbon Dioxide 20 mEq/l L mEq/l (22-31) Anion Gap 8 mEq/L mEq/L (8-16) BUN 23 mg/dL mg/dL (7-23) Creatinine 0.7 mg/dL mg/dL (0.7-1.3) Estimated GFR > 60 Glucose 122 mg/dL H mg/dL (70-100) Calcium 9.1 mg/dL mg/dL (8.5-10.4) Total Bilirubin 0.7 mg/dL mg/dL (0.1-1.4) Conjugated Bilirubin 0.3 mg/dL mg/dL (0.0-0.5) Unconjugated Bilirubin 0.4 mg/dL mg/dL (0.0-1.1) AST 58 IU/L IU/L (17-59) ALT 55 IU/L IU/L (21-72) Alkaline Phosphatase 161 IU/L H IU/L (38-126) Troponin I < 0.012 ng/mL ng/mL (0.000-0.034) Total Protein 7.4 g/dL g/dL (6.3-8.2) Albumin 3.9 g/dL g/dL (3.5-5.0) Lipase 310 IU/L H IU/L (23-300) Stool Occult Bld Scrn Patient ABO/Rh Antibody Screen Crossmatch IS Only Medications Given: Discontinued Medications Sodium Chloride (Ns) 500 mls @ 500 mls/hr IV EDNOW ONE PRN Reason: Protocol Stop: 01/08/17 00:07 Last Admin: 01/07/17 23:15 Dose: 500 mls General Time Seen by Provider: 01/07/17 22:05 Initial Vital Signs: Initial Vital Signs Temperature (C) 36.8 C 01/07/17 21:52 Heart Rate 98 01/07/17 21:52 Respiratory Rate 16 01/07/17 21:52 Blood Pressure 113/71 01/07/17 21:52 O2 Sat (%) 98 01/07/17 21:52 O2 Delivery Mode Room Air Allergies/Adverse Reactions: No Known Allergies Allergy (Verified 01/07/17 21:58) Home Medications: Medication Instructions Recorded Benzonatate [Tessalon Pearles] 100 mg PO TID PRN 12/27/16 Fluticasone/Vilanterol [Breo 1 each IH DAILY 12/27/16 Ellipta 200-25 Mcg INH] Furosemide [Lasix 40 MG (*)] 100 mg PO DAILY 12/27/16 Herbals/Supplements -Info Only 1 ea PO DAILY 12/27/16 Yvette's Leg Cramp Tabs 1 tab PO DAILY PRN 12/27/16 Levothyroxine [Synthroid 150 mcg 150 mcg PO DAILY06 12/27/16 (*)] Multivitamins [Multivitamin (*)] 1 each PO DAILY 12/27/16 Busy-3 Fatty Acids [Fish Oil 1000 1,000 mg PO DAILY@1200 12/27/16 mg (*)] Rifaximin [Xifaxan] 550 mg PO BID 12/27/16 Spironolactone 200 mg PO Q2D 12/27/16 Vitamin B Complex [B Complex] 1 each PO DAILY 12/27/16 Zolpidem Tartrate [Ambien 5MG (*)] 5 mg PO HS PRN 12/27/16 oxyCODONE IR [Oxycodone Ir (*)] 5 mg PO DAILY PRN 12/27/16 Spironolactone [Aldactone] 100 mg PO Q2D 12/30/16 Pantoprazole Sodium [Protonix 40mg 40 mg PO BID #60 tab 01/01/17 (*)] traMADol [Ultram 50 mg (*)] 50 mg PO Q6HRS PRN #40 tab 01/01/17 Departure - Departure Disposition: [facility] Inpatient Acute Clinical Impression: Hyponatremia, Liver disease, chronic, due to alcohol GIB (gastrointestinal bleeding) Qualifiers: GI bleed type/associated pathology: unspecified gastrointestinal hemorrhage type Qualified Code(s): K92.2 - Gastrointestinal hemorrhage, unspecified Condition: Serious Report Scribed for: Irina Hankins Report Scribed by: Lisa Melendez Date of Report: 01/07/17 Time of Report: 22:23
[2017-01-07 22:36] LABS: ABSOLUTE IMMATURE GRANULOCYTES 0.09 10^3/uL (0.00-0.10); ADD DIFF? NO; ADD MORPH? NO; ADD SCAN? NO; ATYPICAL LYMPHOCYTE FLAG 10 (0-99); FRAGMENT RBC FLAG 20 (0-99); HEMATOCRIT 28.7 % (40.0-51.0); HEMOGLOBIN 9.7 g/dL (13.7-17.5); LEFT SHIFT FLG 10 (0-99); LIPEMIA HEMOLYSIS FLAG 90 (0-99); MEAN CELL HEMOGLOBIN 27.8 pg (27.9-34.1); MEAN CELL HEMOGLOBIN CONCENTR. 33.8 g/dL (32.4-36.7); MEAN CELL VOLUME 82.2 fL (81.5-99.8); MEAN PLATELET VOLUME 9.6 fL (8.7-11.7); PLATELET CLUMPS FLAG 0 (0-99); PLATELET COUNT 178 10^3/uL (150-400); RED BLOOD CELL COUNT 3.49 10^6/uL (4.40-6.38); RED CELL DISTRIBUTION WIDTH 19.9 % (11.5-15.2)
[2017-01-07 22:40] LABS: INR 1.27 (0.83-1.16); PROTIME(PATIENT) 15.9 SEC (12.0-15.0)
[2017-01-07 22:43] LABS: ALANINE AMINOTRANSFERASE 55 IU/L (21-72); ALBUMIN 3.9 g/dL (3.5-5.0); ALKALINE PHOSPHATASE 161 IU/L (38-126); ANION GAP 8 mEq/L (8-16); ASPARTATE AMINOTRANSFERASE 58 IU/L (17-59); BILIRUBIN,TOTAL 0.7 mg/dL (0.1-1.4); BILIRUBIN-CONJUGATED 0.3 mg/dL (0.0-0.5); BILIRUBIN-UNCONJUGATED 0.4 mg/dL (0.0-1.1); CALCIUM 9.1 mg/dL (8.5-10.4); CARBON DIOXIDE 20 mEq/l (22-31); CHLORIDE 89 mEq/L (97-110); CREATININE 0.7 mg/dL (0.7-1.3); GLOMERULAR FILTRATION RATE > 60; GLUCOSE 122 mg/dL (70-100); POTASSIUM 5.3 mEq/L (3.5-5.2); TOTAL PROTEIN 7.4 g/dL (6.3-8.2)
--- NOTE | 2017-01-07 22:50 | CPEKG ---
Heart Rate: 88 RR Interval: 682 P-R Interval: 156 QRSD Interval: 78 QT Interval: 356 QTC Interval: 431 P Ardara: 47 QRS Ardara: -14 T Wave Ardara: 35 EKG Severity - BORDERLINE ECG - EKG Impression: SINUS RHYTHM EKG Impression: CONSIDER ANTERIOR INFARCT Electronically Signed By: Irina Hankins 07-Jan-2017 23:53:44
[2017-01-07 22:54] LABS: TROPONIN I < 0.012 ng/mL (0.000-0.034)
[2017-01-07 22:59] LABS: SODIUM 117 mEq/L (134-144)
[2017-01-07] MEDS ORDERED: NS 500 ML IV ONE (23:08)
[2017-01-08] MEDS ORDERED: HYDROmorphONE/DILAUDID 1 MG/ML INJ IVP PRN (00:11)
[2017-01-08] MEDS ORDERED: oxyCODONE IR 5 MG TAB PO PRN ×2 (00:11→11:24)
[2017-01-08] MEDS ORDERED: NS 1,000 ML IV SCH (00:15)
[2017-01-08] MEDS: ONDANSETRON 4 MG/2 ML VIAL IVP PRN ×2 (01:47→13:10)
[2017-01-08] MEDS ORDERED: ZOLPIDEM TARTRATE 5 MG TAB PO PRN ×2 (01:48→11:24)
[2017-01-08] MEDS ORDERED: IPRATROPIUM/ALBUTEROL 3 ML DEYVIAL IH PRN (01:50)
[2017-01-08] MEDS ORDERED: LIDOCAINE 2% VISCOUS 15 ML UDCUP PO PRN (01:56)
[2017-01-08] MEDS: PANTOPRAZOLE SODIUM 40 MG TAB PO SCH ×2 (02:04→08:48)
[2017-01-08] MEDS: RIFAXIMIN 550 MG TAB PO SCH ×2 (02:04→08:48)
--- NOTE | 2017-01-08 03:24 | GHP ---
[f rep st] HISTORY AND PHYSICAL DATE OF ADMISSION: 01/07/2017 SOURCE: Patient provides history, appears reliable. His electronic medical record was also reviewed . Patient with recent hospital stays on 12/27/2016 and 12/30/2016 with history of acute GI bleeding. CHIEF COMPLAINT: Fatigue, abdominal pain, and anemia. 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 Point of care H and H revealed patient had levels measuring 7 and 26, which are a decline from the day previously. Rolan moreira was just discharged on 01/02/2017 following banding and ulcer cauterization. His H and H had been stable at that time with a hemoglobin of 8 at time of discharge. Patient reports that since he has been home, he has been feeling increasingly fatigued, lightheaded w ith intermittent episodes of confusion. Patient states he has continued to take his lactulose and hi s home medications as prescribed. Patient also reports that he had a single episode of blood with wi ping after a bowel movement, but he denies any melena or hematochezia otherwise. Patient does report intermittent and persistent left and right upper quadrant abdominal pain which has been ongoing for some time, slightly increased intensity on the left upper quadrant. Patient also notes some nausea w ithout vomiting and also complains of esophageal discomfort following his last banding. In the emergency department, patient was noted to be normotensive with some minimal tachycardia in th e 90s. His repeat H and H were noted to be improved from discharge on the at 9.7 and 28.7. Alecia blackmon has not had any evidence of active bleeding since arrival to the emergency department. However, was also noted that he has had an acute decline in his sodium from the 120s, 130s, down to 117 today . Patient does report that he feels as though he has been drinking sufficiently. He has been holdin g some of his diuretics. He has not noted any increased abdominal distention or lower extremity swel ling. REVIEW OF SYSTEMS: GENERAL: Patient denies any fevers chills. SKIN: No rashes or sores. ENT: Rickie yarbrough does report persistent sore throat and esophageal pain, for which he has been taking his viscou s lidocaine and lozenges for comfort. He denies any rhinorrhea. EYES: Patient does wear glasses. No acute changes in vision. CV: Patient denies any acute chest pain. No palpitations. He reports that he had a single episode of chest pressure earlier in the morning at home that lasted less than 1 minute. He does not believe it was associated with any dysphagia. RESPIRATORY: Patient reports ch ronic dyspnea on exertion and a chronic cough. Nothing acute in symptoms. GI: Please see HPI. : No dysuria or hematuria. MUSCULOSKELETAL: Patient denies any myalgias or joint pain. NEURO: Alecia blackmon is complaining of a left-sided headache. No numbness, tingling or focal weakness. PSYCHIATRIC: Negative. Remainder review of systems negative except as noted above. ALLERGIES: No known drug allergies. HOME MEDICATIONS: As per EMR: 1. Tramadol 50 mg p.o. q.6 hours p.r.n. for pain. 2. Oxy IR 5 mg p.o. daily p.r.n. for pain. 3. Ambien 10 mg p.o. h.s. p.r.n. for insomnia. 4. Vitamin B complex. 5. Spironolactone 300 mg every other day. 6. Xifaxan 550 mg p.o. b.i.d. 7. Protonix 40 mg p.o. b.i.d. 8. Fish oil 1000 mg p.o. daily. 9. Multivitamins 1 tab p.o. daily. 10. Levothyroxine 150 mcg p.o. daily. 11. [place] Leg Cramp Tabs 1 tab p.o. daily p.r.n. 12. Herbal supplements. 13. Lasix 100 mg p.o. daily. 14. Breo Ellipta 200/25 mcg inhaled daily. 15. Tessalon Perles 100 mg p.o. t.i.d. p.r.n. PAST MEDICAL HISTORY: Significant for alcoholic-related cirrhosis with sobriety for the last 3 years , portal hypertension with history of varices and gastrointestinal bleeding, chronic hyponatremia, ba seline mid to high 200s to 130s, portal gastropathy. PAST SURGICAL HISTORY: Significant for EGD with variceal banding and cauterization. FAMILY HISTORY: Brother with aneurysm. Grandmother diabetes. Mother with Alzheimer's. Father with stomach cancer. SOCIAL HISTORY: Patient is , lives with his . He is employed. He has been sober for 3 y ears. He does not use any illicit drugs. He does smoke half-pack per day for the past 20 years. CODE STATUS: Full patient without advance directives, but desires his to act as proxy if needed , but reports she is currently out of the [place]. PHYSICAL EXAMINATION: VITAL SIGNS: Upon arrival, blood pressure 94/64, heart rate 85, respiratory r ate 16, O2 sat 97% on room air. Current vitals: Blood pressure 96/55, heart rate is 90, O2 sat 99% on room air. GENERAL: No acute distress. Pleasant, chronically ill-appearing gentleman is lying qu ietly in bed, awake. HEAD: Normocephalic, atraumatic. EYES: Extraocular muscles grossly intact. No scleral icterus or conjunctival injection. ENT: Mucous membranes are slightly dry. No nasal dis charge. No oropharyngeal erythema or exudates. NECK: Supple. Trachea midline. CV: Regular rate and rhythm. No murmurs, rubs, or gallops appreciated. RESPIRATORY: Unlabored breathing. Lungs zenobia ar to auscultation bilaterally. No wheezes, rales, or rhonchi appreciated. ABDOMEN: Minimally dist ended, but soft. Patient does have complaints of tenderness to palpation in the left upper quadrant and right upper quadrant. He does grimace and try to withdraw voluntarily with palpation in the left upper quadrant. No epigastric discomfort noted. No rebound or guarding. : No Rothman in place. No suprapubic tenderness to palpation. EXTREMITIES: No cyanosis, clubbing, or edema appreciated. 1 + pedal pulses bilaterally. NEURO: Cranial nerves 2-12 grossly intact. No facial drooping or focal deficits. Sensation grossly intact. PSYCHIATRIC: Patient awake, alert, and oriented x3. Does alejandrina ear a little bit anxious, but otherwise cooperative and pleasant. LABORATORY STUDIES: Sodium is 117, down from 133 on the 12th, potassium 5.3, chloride 89, CO2 is 20, anion gap is 8, BUN 23, creatinine 0.7, estimated GFR greater than 60, glucose 122, calcium 9.1, tot al bilirubin 0.7, conjugated bilirubin 0.3, ALT is 55, AST 58, alkaline phosphatase is 161. Troponin s negative. Total protein 7.4, albumin is 3.9, lipase is 310. Stool occult blood negative is positi ve. PT 15.9 And 1.27. EKG reviewed myself showing sinus rhythm in the 80s. Q waves in leads III and aVF. No acute ST malave ges. QTc 431. ASSESSMENT/PLAN: Pleasant 51-year-old gentleman with history of cirrhosis presents with complaints o f abdominal pain, fatigue, and anemia. 1. Abdominal pain, intermittent, persistent, likely related to patient's history of cirrhosis and po rtal gastropathy with recent banding and cauterization. The patient's abdominal exam otherwise nonac marshall. We will continue with his Protonix, pain medications as needed. 2. Hyponatremia. Patient will be monitored closely on SDU with tele. Patient with significant drop in sodium today compared to previous hospital stays. Patient with recent hospitalization, change in his fluid status. Patient does appear a little bit dry, although he reports that he has been drinki ng orally at home. He will receive some gentle IV fluid hydration. Will plan to repeat his BMP in t he morning. Patient's diuretics will be held. 3. Hyperkalemia, minimally elevated. Holding spironolactone. IV fluid hydration as above and repea t BMP in the morning. 4. Anemia is improved from previous hospital stay at this point, compared to patient's current point of care testing at home. Does not appear to have any acute active bleeding at this time. He does h ave persistent guaiac-positivity on the stool today, which is not surprising with history of gastropl asty. Patient potentially has some hemorrhoids with report of blood with wiping tissue. Will contin ue to monitor closely. Vitals at this time are stable. No need for transfusion at this time. 5. Fatigue. Monitor anemia. IV fluids. Resume patient's home medications. Consider titrating sylvain n on his narcotic use. 6. Cirrhosis. Plan as above. 7. Hyperkalemia. Plan as above. 8. Coagulopathy, related to patient's cirrhosis. Will monitor PT, INR and H and H as above. 9. Hyperglycemia, nonfasting lab without history of diabetes. [facility] 10. Tobacco abuse. Cessation has been encouraged. Holding off on the patch given history of recent bleed. 11. Fluid, electrolyte, nutrition. IV fluids for gentle hydration, IV fluid hydration overnight. E lectrolyte replacement p.r.n. Will monitor potassium to ensure that the trend is down after fluids. Diet: Patient will be n.p.o. pending repeat lab testing and H and H. 12. Prophylaxis. SCDs, holding anticoagulation in setting of history of GI bleeding. 13. Code status is full. Patient without advance directives, desires to act as proxy if needed . 14. Disposition patient admitted to SDU for close monitoring with acute drop in sodium and rising po tassium. Also, patient will be monitored closely for history of some hypotension and gastrointestina l bleeding. /[id number]/MODL
[2017-01-08 05:05] LABS: ABSOLUTE IMMATURE GRANULOCYTES 0.05 10^3/uL (0.00-0.10); ADD DIFF? NO; ADD MORPH? NO; ADD SCAN? NO; ATYPICAL LYMPHOCYTE FLAG 0 (0-99); FRAGMENT RBC FLAG 20 (0-99); HEMOGLOBIN 8.7 g/dL (13.7-17.5); LEFT SHIFT FLG 0 (0-99); LIPEMIA HEMOLYSIS FLAG 80 (0-99); MEAN CELL HEMOGLOBIN 27.8 pg (27.9-34.1); MEAN CELL HEMOGLOBIN CONCENTR. 33.5 g/dL (32.4-36.7); MEAN CELL VOLUME 83.1 fL (81.5-99.8); MEAN PLATELET VOLUME 9.4 fL (8.7-11.7); PLATELET CLUMPS FLAG 20 (0-99); PLATELET COUNT 120 10^3/uL (150-400); RED BLOOD CELL COUNT 3.13 10^6/uL (4.40-6.38); RED CELL DISTRIBUTION WIDTH 19.7 % (11.5-15.2)
[2017-01-08 05:21] LABS: INR 1.36 (0.83-1.16); PROTIME(PATIENT) 16.8 SEC (12.0-15.0)
[2017-01-08 05:22] LABS: APTT 31.6 SEC (23.0-38.0)
[2017-01-08 05:24] LABS: ALANINE AMINOTRANSFERASE 45 IU/L (21-72); ALBUMIN 3.4 g/dL (3.5-5.0); ALKALINE PHOSPHATASE 128 IU/L (38-126); ANION GAP 9 mEq/L (8-16); ASPARTATE AMINOTRANSFERASE 48 IU/L (17-59); BILIRUBIN,TOTAL 1.2 mg/dL (0.1-1.4); CALCIUM 8.4 mg/dL (8.5-10.4); CARBON DIOXIDE 17 mEq/l (22-31); CHLORIDE 99 mEq/L (97-110); CREATININE 0.7 mg/dL (0.7-1.3); GLOMERULAR FILTRATION RATE > 60; GLUCOSE 95 mg/dL (70-100); MAGNESIUM 1.8 mg/dL (1.6-2.3); POTASSIUM 5.1 mEq/L (3.5-5.2); SODIUM 125 mEq/L (134-144); TOTAL PROTEIN 6.7 g/dL (6.3-8.2)
[2017-01-08] MEDS ORDERED: LEVOTHYROXINE 150 MCG TAB PO SCH (06:00)
[2017-01-08 07:36] VITALS: O2SAT 98
--- NOTE | 2017-01-08 10:13 | PDMN ---
Medical Necessity Medical necessity: GRG systemic condition hyponatremia 1 day- NA ( 117) , K ( 5.3) , H/H cont. monitored due to recent GIB, hx of cirrhosis, and hypotension- cont to monitor PT, INR, H/H, PT receiving IV fluids, IV Zofran,
[2017-01-08] MEDS ORDERED: BENZONATATE 100 MG CAP PO PRN (11:23)
[2017-01-08] MEDS ORDERED: LIDOCAINE 2% PO PRN (11:23)
[2017-01-08] MEDS ORDERED: VISCOUS PO PRN (11:23)
[2017-01-08] MEDS ORDERED: traMADol 50 MG TAB PO PRN (11:24)
[2017-01-08] MEDS ORDERED: RIFAXIMIN 550 MG TAB PO SCH (11:30)
[2017-01-08] MEDS ORDERED: NICOTINE 14 MG/24 HR PATCH TD SCH (11:30)
[2017-01-08] MEDS ORDERED: LACTULOSE 20 GM/30 ML UDCUP PO SCH (11:30)
[2017-01-08] MEDS ORDERED: PANTOPRAZOLE SODIUM 40 MG TAB PO SCH (11:30)
[2017-01-08] MEDS ORDERED: BREO ELLIPTA IH SCH (11:45)
[2017-01-08 12:04] LABS: ANION GAP 9 mEq/L (8-16); CALCIUM 8.5 mg/dL (8.5-10.4); CARBON DIOXIDE 20 mEq/l (22-31); CHLORIDE 97 mEq/L (97-110); CREATININE 0.7 mg/dL (0.7-1.3); GLOMERULAR FILTRATION RATE > 60; GLUCOSE 96 mg/dL (70-100); POTASSIUM 4.8 mEq/L (3.5-5.2); SODIUM 126 mEq/L (134-144)
[2017-01-08 12:15] VITALS: BP 100/57; PULSE 81; RESP 10; TEMP 98.3
--- NOTE | 2017-01-08 12:44 | ASMTCMCOM ---
CM Note CM Note Notes: Chart reviewed. Patient seen in rounds. Previously here for GI bleed, admitted last night for electrolyte imbalance. He is insistent on leaving today. Lives independent with no known needs. CM available should needs arise. Date Signed: 01/08/2017 12:43 PM Electronically Signed By:Neelam Yee RN
--- NOTE | 2017-01-08 15:41 | ASDISCHSUM ---
Discharge Information Plan Status:Home with No Needs Medically Cleared to Leave: Discharge Date:01/08/2017 01:27 PM CM D/C Disposition:Home, Routine, Self-Care ADT D/C Disposition:Home, Routine, Self-Care Projected Discharge Date:01/08/2017 01:27 PM Transportation at D/C:Self Discharge Delay Reason: Follow-Up Date:01/08/2017 01:27 PM Discharge Slot: Final Diagnosis: Placement Information Patient Contact Information Contact Name:JOO Relationship:Friend Address: Work Phone: City: [facility] Phone: State/Zip Code: Email: Financial Information Financial Class:[facility] Primary Plan Desc:[employer] OPEN ACC LOCAL Primary Plan Number:[id number] Secondary Plan Desc: Secondary Plan Number: Assessment Information [facility] CM Progress Note CM Note CM Note Notes: Chart reviewed. Patient seen in rounds. Previously here for GI bleed, admitted last night for electrolyte imbalance. He is insistent on leaving today. Lives independent with no known needs. CM available should needs arise. Date Signed: 01/08/2017 12:43 PM Electronically Signed By:Neelam Yee RN Intervention Information
--- NOTE | 2017-01-08 19:18 | GDS ---
[f rep st] DISCHARGE SUMMARY DISCHARGE DIAGNOSES: 1. Acute on chronic hyponatremia. 2. Cirrhosis of the liver due to alcohol. 3. History of variceal bleed, status post banding. 4. Portal gastropathy. 5. Anemia. 6. Tobacco dependence. HISTORY: The patient is a 51-year-old male with a history of alcohol-related cirrhosis although he h as been sober for the last 3 years. He has a history of chronic hyponatremia related to his cirrhosi s. Review of his outpatient labs reveals his sodium really hovers around 125-126 chronically. He silva s routine labs checked frequently, and a [id number] H and H showed a low hemoglobin of 7 and hemat ocrit of 26, which was a decline, and he had recently had banding and ulcer cauterization on January 02, and had a hemoglobin of 8 at that time. He was recommended to come to the emergency room. Upo n presentation, his H and H actually looked good and at baseline on formal laboratory testing, but we did incidentally note hyponatremia with a sodium of 119. He was admitted. He has had recent fatigu e and confusion. He was admitted to the hospital and given gentle IV fluid normal saline and that did correct his sodi um back up to his usual baseline of 126. He was corrected slowly and I do not think he needs any fur ther aggressive inpatient correction at this time. In speaking with the patient, he has been recomme nded to follow fluid restriction; however, he has been quite noncompliant with it. He states he did not really understand the importance of the fluid restriction until now. He is very compliant and do es wish to avoid future hospitalizations such as this in the future, and agrees to 0911-9921 cc fluid restriction upon discharge. Hopefully, this will improve his chronic hyponatremia to a higher level than his recent baseline of 125-126, and that will give him a little more room for variation so he d oes not end up back in ICU with severe hyponatremia, as he has during this stay. DISCHARGE MEDICATIONS: Please see computer record for full detailed list. New medications: I did decrease the spironolactone from 200 mg and 100 mg alternating down 100 mg p. o. daily given the fact he did have a slightly elevated potassium on presentation. ADDITIONAL DISCHARGE INSTRUCTIONS: 1. Fluid restriction 0120-1997 cc daily. 2. Recheck basic metabolic panel, this upcoming Thursday. 3. Follow up at [facility], where he is seen chronically. 4. Greater than 30 minutes' time spent arranging this discharge. Patient was seen and examined by me on the day of discharge. /[id number]/MODL
[2017-01-08] MEDS ORDERED: FERROUS SULFATE 325 MG TAB PO SCH (21:00)
[2017-01-08 21:14] LABS: EXTRA TUBES TO HOLD EXTRA TUBES ON FILE
[2017-01-09] MEDS ORDERED: LEVOTHYROXINE 150 MCG TAB PO SCH (06:00)
[2017-01-09] MEDS ORDERED: BREO ELLIPTA IH SCH (09:00)
[2017-01-09] MEDS ORDERED: NON-FORMULARY NEW DRUG (Fluticasone/Vilanterol [Breo Ellipta 200-25 Mcg Inh] 1 EACH) IH SCH (09:00)
[2017-01-09] MEDS ORDERED: FUROSEMIDE 40 MG TAB PO SCH (09:00)
[2017-01-09 10:42] LABS: FOLLOW UP TEST COMPLETE
== END 2017-01-08 13:27 | disposition home or self-care (01) | DRG 641 ==
LOC: F2N 01-08 01:03
PROVIDERS: ADMIT Family Medicine; ATTEND Family Medicine
PROC: 30233N1 Transfusion of Nonautologous Red Blood Cells into Peripheral Vein, Percutaneous Approach (ICD-10-PCS; principal; 2017-01-07)
DX: E87.1 Hypo-osmolality and hyponatremia (principal); K70.30 Alcoholic cirrhosis of liver without ascites; K31.89 Other diseases of stomach and duodenum; F17.210 Nicotine dependence, cigarettes, uncomplicated; F64.9 Gender identity disorder, unspecified; Z91.11 Patient's noncompliance with dietary regimen
CPT/HCPCS: J2405

== ENCOUNTER → 2017-01-28 | Outpatient (CLI) | payer OTHER ==
[~2017-01-28] MED LIST changes: -GADOBUTROL 10 ML VIAL IVP ONE; +LIDO/EPI 1% **for epidural** 30 ML SDV ONE; +LIDOCAINE 1% 300 MG/30 ML SDV ONE
== END ==
LOC: FIMAGING 08:59
PROVIDERS: ATTEND Internal Medicine Gastroenterology
PROC: 0W9F3ZZ Drainage of Abdominal Wall, Percutaneous Approach (ICD-10-PCS; principal; 2017-01-28)
DX: K70.31 Alcoholic cirrhosis of liver with ascites (principal)

== ENCOUNTER → 2017-02-06 | Outpatient (CLI) | payer OTHER | LOC: FIMAGING 10:06 | PROVIDERS: ATTEND Family Medicine | DX: N28.1 Cyst of kidney, acquired (principal) ==

== ENCOUNTER → 2017-04-17 | Outpatient (CLI) | payer OTHER | LOC: BMCIMAGING 09:21 | PROVIDERS: ATTEND Family Medicine | DX: K70.31 Alcoholic cirrhosis of liver with ascites (principal); N28.1 Cyst of kidney, acquired; K80.20 Calculus of gallbladder without cholecystitis without obstruction; R16.1 Splenomegaly, not elsewhere classified ==

== ENCOUNTER → 2017-05-21 | Outpatient (CLI) | payer OTHER ==
[~2017-05-21] MED LIST changes: +GADOBUTROL 10 ML VIAL IVP ONE; -LIDO/EPI 1% **for epidural** 30 ML SDV ONE; -LIDOCAINE 1% 300 MG/30 ML SDV ONE
== END ==
LOC: FIMAGING 15:17
PROVIDERS: ATTEND Psychiatry & Neurology Neurology
DX: R41.89 Other symptoms and signs involving cognitive functions and awareness (principal); R51 Headache; G47.00 Insomnia, unspecified
CPT/HCPCS: A9585

== ENCOUNTER → 2017-05-25 | Outpatient (CLI) | payer OTHER ==
--- NOTE | 2017-05-26 08:38 | CPEEG ---
[f rep st] ELECTROENCEPHALOGRAM DATE OF STUDY: 05/26/2017 INTERPRETATION: Normal EEG during wakefulness and drowsiness. There were no potentially epileptogen ic abnormalities present in the recording. REPORT: This EEG contains 10 Hz alpha to the posterior head regions. There was no abnormal activati on at rest, during hyperventilation or photic stimulation. The patient intermittently became drowsy during the study. There was no abnormal activation during drowsiness or during times of arousal. /[id number]/MODL
== END ==
LOC: FCPNEURO 14:54
PROVIDERS: ATTEND Psychiatry & Neurology Neurology
DX: R41.89 Other symptoms and signs involving cognitive functions and awareness (principal)

== ENCOUNTER → 2017-06-23 | Outpatient (CLI) | payer OTHER ==
[~2017-06-23] MED LIST changes: -GADOBUTROL 10 ML VIAL IVP ONE; +IOPAMIDOL (ISOVUE 370) 100 ML BTL IV ONE
== END ==
LOC: FIMAGING 11:43
PROVIDERS: ATTEND Family Medicine
DX: R51 Headache (principal)
CPT/HCPCS: Q9967

== ENCOUNTER 2017-07-02 13:03 | Emergency (ER) | payer OTHER ==
[2017-07-02] MEDS ORDERED: MAG HYDROX/AL HYDROX/SIMETH 30 ML UDCUP PO ONE (13:20)
[2017-07-02] MEDS ORDERED: NS 1,000 ML IV ONE (13:20)
--- NOTE | 2017-07-02 13:26 | EDPHY ---
H & P Stated Complaint: Headache, right facial numbness Time Seen by Provider: 07/02/17 13:13 HPI/ROS: CHIEF COMPLAINT: Headache, right facial numbness HISTORY OF PRESENT ILLNESS: Patient is a 51-year-old man with history of traumatic brain injury as well as alcoholic liver disease and hepatitis with portal hypertension and GI bleeding. He is on lactulose. He also had an EGD yesterday with some banding done and has had some mild chest discomfort ever since. No shortness of breath. He denies history of cardiac disease. Today he is following up with his neurologist Dr. Yumiko Sosa at the [facility] who was concerned because he has had persistent headache and right facial and shoulder paresthesias for about the last 10 days. He had an MRI 2 weeks ago before the symptoms started that was unremarkable. He also had a CT head and angio head and neck 1 week ago through his primary care's office that was also normal. He denies fevers. Dr. Sosa recommend he come to the ER get an MRI and ammonia level checked and likely be admitted. He has not had any blood in his stool. REVIEW OF SYSTEMS: Constitutional: denies: chills, fever, recent illness, recent injury EENTM: denies: blurred vision, double vision, nose congestion Respiratory: denies: cough, shortness of breath Cardiac: See HPI denies: irregular heart rate, lightheadedness, palpitations Gastrointestinal/Abdominal: denies: abdominal pain, diarrhea, nausea, vomiting, blood streaked stools Genitourinary: denies: dysuria, frequency, hematuria, pain Musculoskeletal: denies: joint pain, muscle pain Skin: denies: lesions, rash, jaundice, bruising Neurological: See HPI Hematologic/Lymphatic: denies: blood clots, easy bleeding, easy bruising Immunologic/allergic: denies: HIV/AIDS, transplant EXAM: GENERAL: Well-appearing, well-nourished and in no acute distress. HEAD: Atraumatic, normocephalic. EYES: Pupils equal round and reactive to light, extraocular movements intact, sclera anicteric, conjunctiva are normal. ENT: TMs normal, nares patent, oropharynx clear without exudates. Moist mucous membranes. NECK: Normal range of motion, supple without lymphadenopathy or JVD. LUNGS: Breath sounds clear to auscultation bilaterally and equal. No wheezes rales or rhonchi. HEART: Regular rate and rhythm without murmurs, rubs or gallops. ABDOMEN: Soft, nontender, normoactive bowel sounds. No guarding, no rebound. Enlarged liver BACK: No CVA tenderness, no spinal tenderness, step-offs or deformities EXTREMITIES: Normal range of motion, no pitting or edema. No clubbing or cyanosis. NEUROLOGICAL: Subjective sensation changes on the right cheek and chin but none on the extremity or forehead. No objective focal deficits. Cranial nerves II through XII grossly intact. Normal speech, normal gait. 5/5 strength , normal movement in all extremities, NIH stroke score 0. PSYCH: Normal mood, normal affect. SKIN: Warm, dry, normal turgor, no visible rashes or lesions. Source: Patient Exam Limitations: No limitations - Personal History Current Tetanus/Diphtheria Vaccine: Yes - Medical/Surgical History Hx Asthma: No Hx Chronic Respiratory Disease: No Hx Diabetes: No Hx Cardiac Disease: No Hx Renal Disease: No Hx Cirrhosis: Yes Hx Alcoholism: Yes Hx HIV/AIDS: No Hx Splenectomy or Spleen Trauma: No Other PMH: CIRRHOSIS, esophageal varices, upper gi bleed, hernia, TBI 08/2011. hyponatremia, portal hypertension, anemia - Family History Significant Family History: No pertinent family hx - Social History Smoking Status: Heavy smoker Alcohol Use: None Drug Use: None Constitutional: Initial Vital Signs Temperature (C) 36.8 C 07/02/17 13:07 Heart Rate 86 07/02/17 13:07 Respiratory Rate 18 07/02/17 13:07 Blood Pressure 116/90 H 07/02/17 13:07 O2 Sat (%) 96 07/02/17 13:07 O2 Delivery Mode Room Air Allergies/Adverse Reactions: No Known Allergies Allergy (Verified 01/07/17 21:58) Home Medications: Medication Instructions Recorded Benzonatate [Tessalon Pearles] 100 mg PO TID PRN 12/27/16 Fluticasone/Vilanterol [Breo 1 each IH DAILY 12/27/16 Ellipta 200-25 Mcg INH] Furosemide [Lasix 40 MG (*)] 100 mg PO DAILY 12/27/16 Herbals/Supplements -Info Only 1 ea PO DAILY 12/27/16 Yvette's Leg Cramp Tabs 1 tab PO DAILY PRN 12/27/16 Levothyroxine [Synthroid 150 mcg 150 mcg PO DAILY06 12/27/16 (*)] Multivitamins [Multivitamin (*)] 1 each PO DAILY 12/27/16 Rachel-3 Fatty Acids [Fish Oil 1000 1,000 mg PO DAILY@1200 12/27/16 mg (*)] Rifaximin [Xifaxan] 550 mg PO BID 12/27/16 Vitamin B Complex [B Complex] 1 each PO DAILY 12/27/16 Zolpidem Tartrate [Ambien 5MG (*)] 10 mg PO HS PRN 12/27/16 oxyCODONE IR [Oxycodone Ir (*)] 5 mg PO DAILY PRN 12/27/16 Pantoprazole Sodium [Protonix 40mg 40 mg PO BID #60 tab 01/01/17 (*)] traMADol [Ultram 50 mg (*)] 50 mg PO Q6HRS PRN #40 tab 01/01/17 Ferrous Sulfate [Ferrous Sulf 325 325 mg PO BID 01/08/17 MG (*)] Lidocaine 2% Viscous 10 ml PO DAILY PRN 01/08/17 Spironolactone 100 mg PO DAILY #30 tablet 01/08/17 Lortab 10 mg-300 mg/15 ml Elxr 07/02/17 Medical Decision Making - Diagnostics EKG Interpretation: An EKG obtained and was read and documented in trace view. Please see trace view for full reading and report. Sinus rhythm, no acute ischemic changes Imaging Results: Imaging Impressions Brain MRI 07/02/17 13:21 Impression: Normal MRI of the brain without contrast. Results called and discussed with Dr. Morales Bishop at 07/02/2017 14:04. Chest X-Ray 07/02/17 13:21 Impression: Diffuse mild bilateral pulmonary interstitial prominence, new from prior study. Otherwise negative.. Imaging: Discussed imaging studies w/ furniture polisher Radiologist ED Course/Re-evaluation: The patient's lab work and imaging are very reassuring. His chest pain is resolved after GI cocktail. At this point he appears to be at his baseline other than this persistent subjective paresthesias to his face on the right side. I will speak with Dr. Sosa about disposition and plan. 3:40 p.m. I discussed the case with Dr. Sosa. The patient currently is asymptomatic other than these persistent paresthesias and mild headache which have been present for greater than a week. At this point there does not seem to be anything further we could offer him from admission. Dr. Sosa agrees with this. We will discharge him at this time to follow up with her as well as his primary. I warned him strictly to return if his symptoms worsen or if he develops a fever neck stiffness etc. Differential Diagnosis: Partial list of the Differential diagnosis considered include but were not limited to; post procedural discomfort, headache, CVA, TIA and although unlikely based on the history and physical exam, I also considered infection, dissection, electrolyte abnormality, acute coronary disease. - Data Points Laboratory Results: Laboratory Results 07/02/17 13:30 07/02/17 13:30 07/02/17 07/02/17 07/02/17 13:30 13:30 13:30 WBC 7.37 10^3/uL 10^3/uL (3.80-9.50) RBC 5.66 10^6/uL 10^6/uL (4.40-6.38) Hgb 14.1 g/dL g/dL (13.7-17.5) Hct 43.3 % % (40.0-51.0) MCV 76.5 fL L fL (81.5-99.8) MCH 24.9 pg L pg (27.9-34.1) MCHC 32.6 g/dL g/dL (32.4-36.7) RDW 17.7 % H % (11.5-15.2) Plt Count 124 10^3/uL L 10^3/uL (150-400) MPV 9.8 fL fL (8.7-11.7) Neut % (Auto) 65.6 % % (39.3-74.2) Lymph % (Auto) 8.3 % L % (15.0-45.0) [place] % (Auto) 12.1 % % (4.5-13.0) Eos % (Auto) 12.3 % H % (0.6-7.6) Baso % (Auto) 1.4 % % (0.3-1.7) Nucleat RBC Rel Count 0.0 % % (0.0-0.2) Absolute Neuts (auto) 4.84 10^3/uL 10^3/uL (1.70-6.50) Absolute Lymphs (auto) 0.61 10^3/uL L 10^3/uL (1.00-3.00) Absolute Monos (auto) 0.89 10^3/uL H 10^3/uL (0.30-0.80) Absolute Eos (auto) 0.91 10^3/uL H 10^3/uL (0.03-0.40) Absolute Basos (auto) 0.10 10^3/uL 10^3/uL (0.02-0.10) Absolute Nucleated RBC 0.00 10^3/uL 10^3/uL (0-0.01) Immature Gran % 0.3 % % (0.0-1.1) Immature Gran # 0.02 10^3/uL 10^3/uL (0.00-0.10) Sodium 134 mEq/L L mEq/L (135-145) Potassium 4.4 mEq/L mEq/L (3.5-5.2) Chloride 102 mEq/L mEq/L (97-110) Carbon Dioxide 21 mEq/l L mEq/l (22-31) Anion Gap 11 mEq/L mEq/L (8-16) BUN 12 mg/dL mg/dL (7-23) Creatinine 0.7 mg/dL mg/dL (0.7-1.3) Estimated GFR > 60 Glucose 110 mg/dL H mg/dL (70-100) Calcium 8.9 mg/dL mg/dL (8.5-10.4) Ammonia 20.0 uMOL/L uMOL/L (9.0-30.0) Troponin I < 0.012 ng/mL ng/mL (0.000-0.034) Medications Given: Discontinued Medications Al Hydroxide/Mg Hydroxide (Maalox Susp) 30 ml PO ONCE ONE Stop: 07/02/17 13:21 Last Admin: 07/02/17 14:04 Dose: 30 ml Sodium Chloride (Ns) 1,000 mls @ 0 mls/hr IV EDNOW ONE; Wide Open PRN Reason: Protocol Stop: 07/02/17 13:21 Last Admin: 07/02/17 14:05 Dose: 1,000 mls Departure - Departure Disposition: Home, Routine, Self-Care Clinical Impression: Other acute postprocedural pain, Paresthesia Headache Qualifiers: Headache type: unspecified Headache chronicity pattern: acute headache Intractability: not intractable Qualified Code(s): R51 - Headache Condition: Fair Instructions: Acute Headache (ED), Paresthesia (ED) Referrals: Miladis Sosa DO [Non Staff and Non MD] - As per Instructions Ana Cerna MD [Primary Care Provider] - 1-2 days without fail
[2017-07-02 13:46] LABS: PLATELET COUNT 124 10^3/uL (150-400)
--- NOTE | 2017-07-02 14:23 | CPEKG ---
Heart Rate: 76 RR Interval: 789 P-R Interval: 152 QRSD Interval: 82 QT Interval: 380 QTC Interval: 428 P Hastings: 53 QRS Hastings: -39 T Wave Hastings: 18 EKG Severity - BORDERLINE ECG - EKG Impression: SINUS RHYTHM EKG Impression: LEFT AXIS DEVIATION EKG Impression: Similar to previous Electronically Signed By: Morales Bishop 02-Jul-2017 14:26:20
[2017-07-02 15:53] VITALS: BP 97/65
== END 2017-07-02 15:55 | disposition home or self-care (01) ==
DX: G89.18 Other acute postprocedural pain (principal); R51 Headache; R20.2 Paresthesia of skin; F17.200 Nicotine dependence, unspecified, uncomplicated; E86.9 Volume depletion, unspecified

== ENCOUNTER 2017-07-08 16:33 | Inpatient (IN) | payer OTHER ==
--- NOTE | 2017-07-08 17:01 | EDPHY ---
H & P Stated Complaint: Nausea, dark red/brown emesis. EGD 1 week ago. Source: Patient Exam Limitations: No limitations - Personal History Current Tetanus Diphtheria and Acellular Pertussis (TDAP): Yes - Medical/Surgical History Hx Asthma: No Hx Chronic Respiratory Disease: No Hx Diabetes: No Hx Cardiac Disease: No Hx Renal Disease: No Hx Cirrhosis: Yes Hx Alcoholism: Yes Hx HIV/AIDS: No Hx Splenectomy or Spleen Trauma: No Other PMH: CIRRHOSIS, esophageal varices, upper gi bleed, hernia, TBI 08/2011. hyponatremia, portal hypertension, anemia - Social History Smoking Status: Heavy smoker Time Seen by Provider: 07/08/17 17:00 HPI/ROS: HPI: This is a 51-year-old male who presents with Chief Complaint: Nausea, dark red/brown emesis. EGD 1 week ago. Location: Epigastric Quality: Nausea, dark brown emesis Duration: Yesterday evening Signs and Symptoms: no fever, + nausea, + vomiting, + hematemesis, + blood in stool, + abdominal bloating, + diarrhea, no back pain, no urinary symptoms, no testicular/groin pain, no indigestion, no chest pain, no shortness of breath Timing: Acute on chronic Severity: moderate Context: Patient has a history of cirrhosis secondary to alcoholism but no use in several years, GI hemorrhage, anemia, portal gastropathy presents with complaints of acute on chronic moderate epigastric and mid esophageal pain that started last night. He reports that this morning he felt nauseous and had some dry heaves. He then noted some dark red brown emesis x1. He reports he has not eaten any food since last night. He reports that Dr. Thomas performed esophageal varices banding x 4 approximately 1 week ago. He reports that he had been up to yesterday taking his lactulose, Protonix, Rifaximin as directed. He only took 1 dose of lactulose today. He noted 1 loose stool that was dark in color. Patient reports that his last dose of Lortab elixir was approximately 3 hr ago. Reports that the epigastric esophageal pain is 5/10 currently. Denies any shortness of breath/fever/chest pain/palpitations. He reports that he felt bloated yesterday as well as today. Per chart review patient has a history of hyponatremia, GI bleeding anemia required admission and blood transfusions. Patient reports that he really has not eaten any food today but is drinking liquids in small amounts. Modifying Factors: None Comment: ROS: see HPI Constitutional: No fever, no chills, no weight loss Eyes: No blurred vision Respiratory: No shortness of breath, no cough Cardiovascular: No chest pain, no palpitations Gastrointestinal: + nausea, + vomiting, + diarrhea, + hematemesis, + blood in stool Genitourinary: No dysuria, no blood in urine Extremities: No myalgias, no edema Neurologic: No weakness, no numbness Skin: No rashes, no petechiae Hematologic: No bruising, no bleeding MEDICAL/SURGICAL/SOCIAL HISTORY: Medical history: CIRRHOSIS, esophageal varices, upper gi bleed, hernia, TBI 2011, hyponatremia, portal hypertension, anemia Surgical history: EGD Social history: Family history noncontributory. CONSTITUTIONAL: Chronically ill-appearing adult male, awake and alert, no obvious distress HEENT: Atraumatic and normocephalic, PERRL, EOMI. Mildly icteric sclera. Nares patent; no rhinorrhea; no nasal mucosal edema. Tympanic membranes clear. Oropharynx clear, no exudate and moist pink mucosa. Airway patent. No lymphadenopathy. No meningismus. Cardiovascular: Normal S1/S2, regular rate, regular rhythm, without murmur rub or gallop. PULMONARY/CHEST: Symmetrical and nontender. Clear to auscultation bilaterally. Good air movement. No accessory muscle usage. ABDOMEN: Soft, mildly distended, moderate epigastric tenderness, no rebound, no guarding, no peritoneal signs, no masses or organomegaly. No CVAT. RECTAL: Good sphincter tone, light brown stool in vault, no external hemorrhoids , no fissures, no palpable masses, guaiac positive EXTREMITIES: 2/2 pulses, strength 5/5, no deformities, no clubbing, no cyanosis or edema. NEUROLOGICAL: no focal neuro deficits. GCS 15. SKIN: Warm and dry, jaundice, no erythema. no rash. Good capillary refill. ([place]) Constitutional: Initial Vital Signs Temperature (C) 36.7 C 07/08/17 16:35 Heart Rate 98 07/08/17 16:35 Respiratory Rate 16 07/08/17 16:35 Blood Pressure 112/79 07/08/17 16:35 O2 Sat (%) 97 07/08/17 16:35 O2 Delivery Mode Room Air Allergies/Adverse Reactions: No Known Allergies Allergy (Verified 01/07/17 21:58) Home Medications: Medication Instructions Recorded Benzonatate [Tessalon Pearles] 100 mg PO TID PRN 12/27/16 Fluticasone/Vilanterol [Breo 1 each IH DAILY 12/27/16 Ellipta 200-25 Mcg INH] Furosemide [Lasix 40 MG (*)] 100 mg PO DAILY 12/27/16 Herbals/Supplements -Info Only 1 ea PO DAILY 12/27/16 Yvette's Leg Cramp Tabs 1 tab PO DAILY PRN 12/27/16 Levothyroxine [Synthroid 150 mcg 150 mcg PO DAILY06 12/27/16 (*)] Multivitamins [Multivitamin (*)] 1 each PO DAILY 12/27/16 [place]-3 Fatty Acids [Fish Oil 1000 1,000 mg PO DAILY@1200 12/27/16 mg (*)] Rifaximin [Xifaxan] 550 mg PO BID 12/27/16 Vitamin B Complex [B Complex] 1 each PO DAILY 12/27/16 Zolpidem Tartrate [Ambien 5MG (*)] 10 mg PO HS PRN 12/27/16 oxyCODONE IR [Oxycodone Ir (*)] 5 mg PO DAILY PRN 12/27/16 Pantoprazole Sodium [Protonix 40mg 40 mg PO BID #60 tab 01/01/17 (*)] Ferrous Sulfate [Ferrous Sulf 325 325 mg PO BID 01/08/17 MG (*)] Spironolactone 100 mg PO DAILY #30 tablet 01/08/17 Lortab 10 mg-300 mg/15 ml Elxr 07/02/17 Medical Decision Making - Diagnostics Imaging Results: Imaging Impressions Chest X-Ray 07/08/17 17:17 Impression: Chest is negative for acute cardiopulmonary abnormality. No free air is seen in the upper abdomen. ED Course/Re-evaluation: Chest x-ray to evaluate for free air/perforation, labs, IV fluids, IV medications, guaiac stool ordered Vital signs reviewed upon arrival in stable. No systemic signs. 1725: Given 500 cc normal saline, IV Protonix, IV morphine Rectal performed with bar welder. No thrombosed hemorrhoids appreciated. 1740: Labs reviewed; H&H 12.9/39.2-stable, sodium 132 1808: Chest x-ray my read shows no; free air concerning for perforation. Guaiac positive 182: Patient reports that he does not feel comfortable going home at this time and would like admission into the hospital for close monitoring. ED decision to consult for admission for lower GI bleeding, recent variceal banding. Spoke with hospitalist, Dr. Srinivasan, who kindly accepts to admit patient and provide further care. Gastroenterology consult. Spoke with Dr. Olivier requests octreotide and antibiotics be given (gave Ceftriaxone) and kindly agrees to consult on patient due to recent banding. This patient was seen under the supervision of my secondary supervising physician. I evaluated care for this patient independently. Discussed this patient with Dr. Troy who did not see the patient. ([place]) Differential Diagnosis: Abdominal pain including but not limited to appendicitis, cholecystitis, gastritis and urinary tract infection. (Xochilt Carter) Other Provider: Independent physician evaluation I evaluated and participated in the management of the patient. I also evaluated the patient independently. My co-signature indicates that I have reviewed this chart and I agree with the findings and plan of care as documented. My personal H&P findings include: The patient presents to the ED with complaints of melanotic stool in the history of known recent variceal banding. ED course: The patient is noted to be hemodynamically stable upon arrival. He has no evidence of a critical anemia. Patient is started on IV PPIi. The patient will be admitted to the hospitalist for observation and possible endoscopy. ([place]) - Data Points Laboratory Results: Laboratory Results 07/08/17 16:49 07/08/17 16:49 07/08/17 07/08/17 07/08/17 17:45 16:49 16:49 WBC RBC Hgb Hct MCV MCH MCHC RDW Plt Count MPV Neut % (Auto) Lymph % (Auto) [place] % (Auto) Eos % (Auto) Baso % (Auto) Nucleat RBC Rel Count Absolute Neuts (auto) Absolute Lymphs (auto) Absolute Monos (auto) Absolute Eos (auto) Absolute Basos (auto) Absolute Nucleated RBC Immature Gran % Immature Gran # PT 16.0 SEC H SEC (12.0-15.0) INR 1.26 H (0.83-1.16) APTT 32.9 SEC SEC (23.0-38.0) Sodium 132 mEq/L L mEq/L (135-145) Potassium 4.8 mEq/L mEq/L (3.5-5.2) Chloride 95 mEq/L L mEq/L (97-110) Carbon Dioxide 24 mEq/l mEq/l (22-31) Anion Gap 13 mEq/L mEq/L (8-16) BUN 35 mg/dL H mg/dL (7-23) Creatinine 0.7 mg/dL mg/dL (0.7-1.3) Estimated GFR > 60 Glucose 164 mg/dL H mg/dL (70-100) Calcium 9.3 mg/dL mg/dL (8.5-10.4) Total Bilirubin 0.8 mg/dL mg/dL (0.1-1.4) Conjugated Bilirubin 0.6 mg/dL H mg/dL (0.0-0.5) Unconjugated Bilirubin 0.2 mg/dL mg/dL (0.0-1.1) AST 21 IU/L IU/L (17-59) ALT 39 IU/L IU/L (21-72) Alkaline Phosphatase 147 IU/L H IU/L (38-126) Total Protein 8.4 g/dL H g/dL (6.3-8.2) Albumin 4.4 g/dL g/dL (3.5-5.0) Lipase 89 IU/L IU/L (23-300) Stool Occult Bld Scrn POSITIVE H (NEGATIVE) 07/08/17 16:49 WBC 9.30 10^3/uL 10^3/uL (3.80-9.50) RBC 5.14 10^6/uL 10^6/uL (4.40-6.38) Hgb 12.9 g/dL L g/dL (13.7-17.5) Hct 39.2 % L % (40.0-51.0) MCV 76.3 fL L fL (81.5-99.8) MCH 25.1 pg L pg (27.9-34.1) MCHC 32.9 g/dL g/dL (32.4-36.7) RDW 18.0 % H % (11.5-15.2) Plt Count 181 10^3/uL 10^3/uL (150-400) MPV 10.9 fL fL (8.7-11.7) Neut % (Auto) 74.2 % % (39.3-74.2) Lymph % (Auto) 8.5 % L % (15.0-45.0) [place] % (Auto) 10.8 % % (4.5-13.0) Eos % (Auto) 5.1 % % (0.6-7.6) Baso % (Auto) 1.0 % % (0.3-1.7) Nucleat RBC Rel Count 0.0 % % (0.0-0.2) Absolute Neuts (auto) 6.91 10^3/uL H 10^3/uL (1.70-6.50) Absolute Lymphs (auto) 0.79 10^3/uL L 10^3/uL (1.00-3.00) Absolute Monos (auto) 1.00 10^3/uL H 10^3/uL (0.30-0.80) Absolute Eos (auto) 0.47 10^3/uL H 10^3/uL (0.03-0.40) Absolute Basos (auto) 0.09 10^3/uL 10^3/uL (0.02-0.10) Absolute Nucleated RBC 0.00 10^3/uL 10^3/uL (0-0.01) Immature Gran % 0.4 % % (0.0-1.1) Immature Gran # 0.04 10^3/uL 10^3/uL (0.00-0.10) PT INR APTT Sodium Potassium Chloride Carbon Dioxide Anion Gap BUN Creatinine Estimated GFR Glucose Calcium Total Bilirubin Conjugated Bilirubin Unconjugated Bilirubin AST ALT Alkaline Phosphatase Total Protein Albumin Lipase Stool Occult Bld Scrn Medications Given: Discontinued Medications Sodium Chloride (Ns) 500 mls @ 1,000 mls/hr IV EDNOW ONE PRN Reason: Protocol Stop: 07/08/17 17:55 Last Admin: 07/08/17 17:39 Dose: 500 mls Morphine Sulfate (Morphine) 4 mg IVP EDNOW ONE Stop: 07/08/17 17:17 Last Admin: 07/08/17 17:20 Dose: 4 mg Ondansetron HCl (Zofran) 4 mg IVP EDNOW ONE Stop: 07/08/17 17:17 Last Admin: 07/08/17 17:20 Dose: 4 mg Pantoprazole Sodium (Protonix) 40 mg IVP ONCE ONE Stop: 07/08/17 17:04 Last Admin: 07/08/17 17:20 Dose: 40 mg Departure - Departure Disposition: [facility] ([place], [place]) Inpatient Acute Clinical Impression: Lower GI bleeding, Upper GI bleeding, History of esophagogastroduodenoscopy ( EGD) Esophageal varices Qualifiers: Esophageal varices type: secondary Esophageal varices bleeding: with bleeding Qualified Code(s): I85.11 - Secondary esophageal varices with bleeding Condition: Fair
[2017-07-08] MEDS ORDERED: PANTOPRAZOLE SODIUM 40 MG VIAL IVP ONE (17:03)
[2017-07-08 17:12] LABS: PLATELET COUNT 181 10^3/uL (150-400)
[2017-07-08] MEDS ORDERED: ONDANSETRON 4 MG/2 ML VIAL IVP ONE (17:16)
[2017-07-08] MEDS ORDERED: NS 500 ML IV ONE (17:26)
[2017-07-08 17:31] LABS: INR 1.26 (0.83-1.16)
[2017-07-08] MEDS ORDERED: OCTREOTIDE ACETATE 50 MCG/ML INJ IVP ONE (18:45)
[2017-07-08] MEDS ORDERED: ONDANSETRON DISINTEGRATING 4 MG TAB PO PRN (19:12)
[2017-07-08] MEDS ORDERED: ACETAMINOPHEN 325 MG TAB PO PRN (19:12)
[2017-07-08] MEDS ORDERED: ONDANSETRON 4 MG/2 ML VIAL IVP PRN (19:12)
[2017-07-08] MEDS ORDERED: [UNRECOGNIZED DRUG - OTHER] PO PRN (21:33)
--- NOTE | 2017-07-08 21:44 | PDGENHP ---
History and Physical - History of Present Illness 51 yo male withhx of cirrhosis secondary to ETOH and recent Esophageal variceal banding per doctor Martha one weeks ago p/w epigastric, esophageal pain, bloody emeis. Heme +. He reports Melena. GI has been consulted by the [facility]. He has been started on Octreotide, PPI, and Rocephin. He does not have any e/o active infection. NO resp or urinary sx's. Hgb is 12.9. INR is 1.26. VSS. He is not tachycardic He denies cp, sob, palpitations, leg swelling, or other. He is currently not having abd pain. 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 hyponatremia, portal hypertension, anemia SocHx: + Tobacco, No active ETOH use FmHx: non contributory Labs/Data: per above History Information - Allergies/Home Medication List Allergies/Adverse Reactions: No Known Allergies Allergy (Verified 01/07/17 21:58) Home Medications: Fluticasone/Vilanterol [Breo Ellipta 200-25 Mcg INH] 1 each IH DAILY 12/27/16 [ Last Taken 07/08/17] Furosemide [Lasix 40 MG (*)] 160 mg PO MOWEFR@06 12/27/16 [Last Taken 07/08/17] Herbals/Supplements -Info Only 1 ea PO DAILY 12/27/16 [Last Taken 07/08/17] Yvette's Leg Cramp Tabs 1 tab PO DAILY PRN 12/27/16 [Last Taken 07/08/17] Levothyroxine [Synthroid 150 mcg (*)] 150 mcg PO DAILY06 12/27/16 [Last Taken ] Multivitamins [Multivitamin (*)] 1 each PO DAILY@11 12/27/16 [Last Taken ] [place]-3 Fatty Acids [Fish Oil 1000 mg (*)] 1,000 mg PO DAILY@1300 12/27/16 [ Last Taken 07/08/17] Rifaximin [Xifaxan] 550 mg PO BID@08,19 12/27/16 [Last Taken 07/08/17 08:00] Vitamin B Complex [B Complex] 1 each PO DAILY@11 12/27/16 [Last Taken 07/08/17] Zolpidem Tartrate [Ambien 5MG (*)] 10 mg PO HS PRN 12/27/16 [Last Taken 07/03/17 ] oxyCODONE IR [Oxycodone Ir (*)] 5 mg PO DAILY PRN 12/27/16 [Last Taken 07/07/17] Lortab 10 mg-300 mg/15 ml Elxr 7.5 ml PO Q4H PRN 07/02/17 [Last Taken 07/08/17] Amiloride [Amiloride 5 MG (RX)] 10 mg PO DAILY@07/08/17 [Last Taken 07/08/17] Cholecalciferol Vit D3 [Vitamin D3 (*)] 1,000 units PO DAILY@07/08/17 [Last Taken 07/08/17] Cyanocobalamin [Vitamin B12 (*)] 1,000 mcg PO DAILY@07/08/17 [Last Taken ] Furosemide [Lasix 40 MG (*)] 120 mg PO SUTUTHSA@07/08/17 [Last Taken 07/07/17 ] Lactulose 20 gm PO TID@,,07/08/17 [Last Taken 07/08/17 13:00] Melatonin [Melatonin 3 MG (*)] 3 mg PO HS PRN 07/08/17 [Last Taken 07/07/17] Ondansetron HCl [Zofran] 4 - 8 mg PO DAILY PRN 07/08/17 [Last Taken 07/08/17] Pantoprazole Sodium [Protonix 40mg (*)] 40 mg PO DAILY@07/08/17 [Last Taken 07/08/17] Pyridoxine HCl [Vitamin B-6 100 mg (*)] 100 mg PO DAILY@07/08/17 [Last Taken 07/08/17] Ramelteon [Rozerem] 8 mg PO HS PRN 07/08/17 [Last Taken 07/07/17] Spironolactone [Aldactone 50 MG (RX)] 125 mg PO MOWEFR@07/08/17 [Last Taken 07/08/17] I have personally reviewed and updated: medical history, social history - Social History Smoking Status: Heavy smoker Review of Systems Review of Systems: ROS: 10pt was reviewed & negative except for what was stated in HPI & below Physical Exam Physical Exam: Temp Pulse Resp BP Pulse Ox 36.6 C 87 14 99/67 L 95 07/08/17 20:00 07/08/17 20:00 07/08/17 20:00 07/08/17 20:00 07/08/17 20:00 Constitutional: no apparent distress Eyes: PERRL, EOMI Ears, Nose, Mouth, Throat: moist mucous membranes Cardiovascular: regular rate and rhythym Respiratory: no respiratory distress Gastrointestinal: distension, No tenderness Skin: warm Neurologic: AAOx3 Psychiatric: interacting appropriately, not anxious, not encephalopathic Lymph, Heme, Immunologic: No petechiae Lab Data & Imaging Review 07/08/17 16:49 07/08/17 16:49 WBC 9.30 10^3/uL (3.80-9.50) 07/08/17 16:49 RBC 5.14 10^6/uL (4.40-6.38) 07/08/17 16:49 Hgb 12.9 g/dL (13.7-17.5) L 07/08/17 16:49 Hct 39.2 % (40.0-51.0) L 07/08/17 16:49 MCV 76.3 fL (81.5-99.8) L 07/08/17 16:49 MCH 25.1 pg (27.9-34.1) L 07/08/17 16:49 MCHC 32.9 g/dL (32.4-36.7) 07/08/17 16:49 RDW 18.0 % (11.5-15.2) H 07/08/17 16:49 Plt Count 181 10^3/uL (150-400) 07/08/17 16:49 MPV 10.9 fL (8.7-11.7) 07/08/17 16:49 Neut % (Auto) 74.2 % (39.3-74.2) 07/08/17 16:49 Lymph % (Auto) 8.5 % (15.0-45.0) L 07/08/17 16:49 [place] % (Auto) 10.8 % (4.5-13.0) 07/08/17 16:49 Eos % (Auto) 5.1 % (0.6-7.6) 07/08/17 16:49 Baso % (Auto) 1.0 % (0.3-1.7) 07/08/17 16:49 Nucleat RBC Rel Count 0.0 % (0.0-0.2) 07/08/17 16:49 Absolute Neuts (auto) 6.91 10^3/uL (1.70-6.50) H 07/08/17 16:49 Absolute Lymphs (auto) 0.79 10^3/uL (1.00-3.00) L 07/08/17 16:49 Absolute Monos (auto) 1.00 10^3/uL (0.30-0.80) H 07/08/17 16:49 Absolute Eos (auto) 0.47 10^3/uL (0.03-0.40) H 07/08/17 16:49 Absolute Basos (auto) 0.09 10^3/uL (0.02-0.10) 07/08/17 16:49 Absolute Nucleated RBC 0.00 10^3/uL (0-0.01) 07/08/17 16:49 Immature Gran % 0.4 % (0.0-1.1) 07/08/17 16:49 Immature Gran # 0.04 10^3/uL (0.00-0.10) 07/08/17 16:49 PT 16.0 SEC (12.0-15.0) H 07/08/17 16:49 INR 1.26 (0.83-1.16) H 07/08/17 16:49 APTT 32.9 SEC (23.0-38.0) 07/08/17 16:49 Sodium 132 mEq/L (135-145) L 07/08/17 16:49 Potassium 4.8 mEq/L (3.5-5.2) 07/08/17 16:49 Chloride 95 mEq/L (97-110) L 07/08/17 16:49 Carbon Dioxide 24 mEq/l (22-31) 07/08/17 16:49 Anion Gap 13 mEq/L (8-16) 07/08/17 16:49 BUN 35 mg/dL (7-23) H 07/08/17 16:49 Creatinine 0.7 mg/dL (0.7-1.3) 07/08/17 16:49 Estimated GFR > 60 07/08/17 16:49 Glucose 164 mg/dL (70-100) H 07/08/17 16:49 Calcium 9.3 mg/dL (8.5-10.4) 07/08/17 16:49 Total Bilirubin 0.8 mg/dL (0.1-1.4) 07/08/17 16:49 Conjugated Bilirubin 0.6 mg/dL (0.0-0.5) H 07/08/17 16:49 Unconjugated Bilirubin 0.2 mg/dL (0.0-1.1) 07/08/17 16:49 AST 21 IU/L (17-59) 07/08/17 16:49 ALT 39 IU/L (21-72) 07/08/17 16:49 Alkaline Phosphatase 147 IU/L (38-126) H 07/08/17 16:49 Total Protein 8.4 g/dL (6.3-8.2) H 07/08/17 16:49 Albumin 4.4 g/dL (3.5-5.0) 07/08/17 16:49 Lipase 89 IU/L (23-300) 07/08/17 16:49 Stool Occult Bld Scrn POSITIVE (NEGATIVE) H 07/08/17 17:45 Assessment & Plan Assessment: #Esophageal varices with likely recurrent bleed #Hyponatremia, chronic #Cirrhosis and ESLD #Hx of Hepatic Encephalopathy, currently not confused #Portal HTN Plan: Admit NPO at midnight repeat CBC tonight He is hemodynamically stable at this time cont Octreotide cont Rocephin empirically, no known source of infection currently cont Protonix GI to see in a..m I will hold diuretics for now. cont home meds SCDs
[2017-07-08] MEDS: CHOLECALCIFEROL VIT D3 1,000 UNITS TAB PO SCH (22:10)
[2017-07-08] MEDS: MELATONIN 3 MG TAB PO PRN (22:10)
[2017-07-08] MEDS: PYRIDOXINE HCL 100 MG TAB PO SCH (22:10)
[2017-07-08] MEDS: LACTULOSE 20 GM/30 ML UDCUP PO SCH (22:10)
[2017-07-08] MEDS: RIFAXIMIN 550 MG TAB PO SCH (22:10)
[2017-07-08] MEDS: ZOLPIDEM TARTRATE 5 MG TAB PO PRN (22:10)
[2017-07-08] MEDS: OCTREOTIDE ACETATE 500 MCG in NS 50 ML IV SCH (22:11)
[2017-07-08] MEDS: NS 1,000 ML IV SCH (22:11)
[2017-07-08] MEDS: PANTOPRAZOLE SODIUM 40 MG VIAL IVP SCH (22:11)
[2017-07-08 22:50] LABS: PLATELET COUNT 113 10^3/uL (150-400)
[2017-07-09 05:25] LABS: PLATELET COUNT 121 10^3/uL (150-400)
[2017-07-09] MEDS: LACTULOSE 20 GM/30 ML UDCUP PO SCH ×3 (05:29→18:47)
[2017-07-09] MEDS: LEVOTHYROXINE 150 MCG TAB PO SCH (05:29)
[2017-07-09] MEDS ORDERED: NS 500 ML IV ONE (06:31)
[2017-07-09] MEDS: NS 1,000 ML IV SCH ×2 (07:43→21:54)
[2017-07-09] MEDS: RIFAXIMIN 550 MG TAB PO SCH ×2 (08:27→18:46)
[2017-07-09] MEDS ORDERED: Herbals/Supplements -Info Only PO SCH (09:00)
[2017-07-09] MEDS: MAGNESIUM GLYCINATE 100 MG PO SCH ×2 (09:39→22:40)
[2017-07-09] MEDS: Fluticasone/Vilanterol [Breo Ellipta 200-25 Mcg Inh] IH SCH (09:56)
[2017-07-09] MEDS: OCTREOTIDE ACETATE 500 MCG in NS 50 ML IV SCH (10:07)
[2017-07-09] MEDS: PANTOPRAZOLE SODIUM 40 MG VIAL IVP SCH ×2 (10:07→21:54)
--- NOTE | 2017-07-09 10:37 | PDMN ---
Medical Necessity Medical necessity: Patient meets inpatient criteria per physician note and MCG M -180 GI Bleeding, Upper - (patient presents w/epigastric and abd pain and bloody emesis 1 week post-banding of esophageal varices; hypotension/syst B/P in 80's; anticipated LOS > 2 midnights for ongoing IV hydration, octreotide IV gtt, IV antibiotics and morphine for pain relief; NPO awaiting further GI studies.)
[2017-07-09] MEDS: CHOLECALCIFEROL VIT D3 1,000 UNITS TAB PO SCH (11:40)
[2017-07-09] MEDS: CYANO/VITAMIN B12 1000 MCG TAB PO SCH (11:41)
[2017-07-09] MEDS: PYRIDOXINE HCL 100 MG TAB PO SCH (11:41)
[2017-07-09] MEDS: VITAMIN B COMPLEX 1 EA CAP/TAB PO SCH (11:42)
--- NOTE | 2017-07-09 11:42 | HOSPPROG ---
Hospitalist Progress Note Assessment/Plan: #Esophageal varices with likely recurrent bleed - s/p banding one week ago by Dr. Thomas. No further hematemesis overnight. Hgb stable. -will discuss plan with GI re: scope -cont to trend h&h -cont octreo, PPI -possibly trial clears today #Hyponatremia - resolved with NS, follow #Cirrhosis and ESLD - cont to hold diuretics today, likely resume in am -cont empiric ceftriaxone due to increased risk of bacteremia with GI bleed in setting of cirrhosis/ascites (no BCx's drawn, will defer at this point) #Hx of Hepatic Encephalopathy, currently not confused -cont lactulose #Portal HTN Full code DVT PPLX - defer pharm with GI bleed, SCD's Dispo - cont inpt Subjective: Pt doing ok. C/O headache. No more vomiting. Reports melanotic stool. No CP, SOB. No abdominal pain or fevers. Objective: Vital Signs Temp Pulse Resp BP Pulse Ox 36.5 C 71 16 91/59 L 96 07/09/17 11:11 07/09/17 11:11 07/09/17 11:11 07/09/17 11:11 07/09/17 11:11 Laboratory Results 07/09/17 11:07 07/09/17 04:29 07/08/17 07/09/17 07/10/17 05:59 05:59 05:59 Intake Total 1200 1042 Balance 1200 1042 PT 16.0 SEC (12.0-15.0) H 07/08/17 16:49 INR 1.26 (0.83-1.16) H 07/08/17 16:49 - Physical Exam Constitutional: no apparent distress Eyes: PERRL Ears, Nose, Mouth, Throat: moist mucous membranes Cardiovascular: regular rate and rhythym Respiratory: no respiratory distress, clear to auscultation Gastrointestinal: normoactive bowel sounds, soft, non-tender abdomen, other (non -distended, no fluid wave) Skin: warm Musculoskeletal: full muscle strength Neurologic: AAOx3 Psychiatric: interacting appropriately ICD10 Worksheet Patient Problems: Problems Problem Status Onset Esophageal varices Acute History of esophagogastroduodenoscopy (EGD) Acute Lower GI bleeding Acute Upper gastrointestinal hemorrhage Acute Abdominal pain Acute Ascites Acute GIB (gastrointestinal bleeding) Acute Hyponatremia Acute Liver disease, chronic, due to alcohol Acute
[2017-07-09] MEDS: NICOTINE 14 MG/24 HR PATCH TD SCH (12:24)
[2017-07-09] MEDS ORDERED: OMEGA-3 FATTY ACIDS 1,000 MG CAP PO SCH (13:00)
--- NOTE | 2017-07-09 14:16 | GCON ---
[f rep st] CONSULTATION DATE OF CONSULTATION: 07/09/2017 CHIEF COMPLAINT: Hematemesis. HISTORY OF PRESENT ILLNESS: I am asked to see this patient in consultation by Dr. Srinivasan for a [facility] complaint of hematemesis. The patient is a 51-year-old, followed by Dr. Thomas for alcoholic live r disease, portal hypertension, and esophageal varices. He has been undergoing serial esophageal armida iceal ligation. The last time was a week ago. The patient had some belching and felt that he chanelle t up some fluid that he thought looked like blood, but denies any clovis vomiting. This happened yest erday, but none today. He has some burning chest discomfort since the banding. No dysphagia. No di arrhea or constipation. Did have a bowel movement this morning that he described as black, but no br ight red blood. No abdominal pain. ALLERGIES: No known allergies. CURRENT MEDICATIONS: The patient is on Robaxin, Lortab, lactulose, Lasix, multivitamins, amiloride, Zofran, Protonix, and oxycodone. PAST MEDICAL HISTORY: Alcoholic liver disease with cirrhosis, portal hypertension with esophageal va rices, status post bleeding, undergoing serial esophageal variceal ligation, hyponatremia, history of anemia. SOCIAL HISTORY: The patient has a history of alcohol abuse, but is now abstinent. FAMILY HISTORY: Notable for gastric cancer in his father. REVIEW OF SYSTEMS: I performed a complete review of systems, which was negative except for the perti nent positives and negatives noted above in the HPI. PHYSICAL EXAMINATION: VITAL SIGNS: On admission, the patient was hemodynamically stable with a BP o f 103/65, pulse 89, and afebrile at 36.7. CONSTITUTIONAL: He is alert and oriented. HEENT: Eyes: No scleral icterus. No oral lesions. CHEST: Clear to auscultation. CARDIOVASCULAR: Regular in r hythm. ABDOMEN: Positive bowel sounds. Soft, nontender. I can detect no ascites. NEUROLOGIC: No nfocal. SKIN: No rashes. LABORATORY DATA: On presentation, his BUN was 35, with a creatinine of 0.7. ProTime was 16, with an INR of 1.26. White count 9, hematocrit 39.2, platelets 181. Overnight, his hemoglobin has gone fro m 12.9 to 11.3 to 11.1. ASSESSMENT: Episode of hematemesis. Patient with episode of belching bright red blood. Unclear if he was having actual vomiting. This is 1 week post banding for esophageal varices. Likely, he is silva ving some oozing post banding. At this point, he does not make criteria for a hemodynamically signif icant bleed. He has no tachycardia and no hypotensive symptoms. He had a slight drop in his hematoc rit. He has stabilized this morning, consistent with a minor gastrointestinal bleed. At this point, I think the benefit of an endoscopy would not outweigh the risks, as he would not make criteria for a therapeutic maneuver. I suspect the bleeding will be self-limited. PLAN: I would recommend increasing his PPI to twice daily. Okay to give a trial of clear liquids an d may discharge when his H and H are stable. I advised the patient to follow up with his regular gas troenterologist, Dr. Thomas. If his status should change or there is evidence of more significant bl eeding, please re-consult GI. Thanks for the consult. /[id number]/MODL
--- NOTE | 2017-07-09 15:36 | ASMTCMCOM ---
CM Note CM Note Notes: Pt. is a 51-year-old man admitted due to nausea and dark red/brown emesis. Hx. cirrhosis due to alcohol. No PT/OT ordered. SWer met w/ Pt. in room today. Pt. states he quit drinking "years" ago but might have to get a liver transplant. Provided counseling resources to Pt. who says that his lacquer maker is asking him to "seek counseling" before he can qualify for a liver transplant. Pt. seemed a bit confused about what "counseling" is. Plan: Independent d/c when ready. Date Signed: 07/09/2017 03:35 PM Electronically Signed By:Britney Hopson LCSW
[2017-07-09] MEDS: HYDROCOD/APAP 7.5/325 IN 15ML UDCUP PO PRN ×2 (17:07→21:54)
[2017-07-09] MEDS: MELATONIN 3 MG TAB PO PRN (22:10)
[2017-07-09] MEDS: ZOLPIDEM TARTRATE 5 MG TAB PO PRN (22:10)
[2017-07-10] MEDS: LACTULOSE 20 GM/30 ML UDCUP PO SCH ×2 (06:50→10:13)
[2017-07-10] MEDS: LEVOTHYROXINE 150 MCG TAB PO SCH ×2 (06:51→07:15)
[2017-07-10 07:57] VITALS: BP 123/58
[2017-07-10] MEDS: RIFAXIMIN 550 MG TAB PO SCH (08:39)
[2017-07-10] MEDS: MAGNESIUM GLYCINATE 100 MG PO SCH (08:41)
[2017-07-10] MEDS: NICOTINE 14 MG/24 HR PATCH TD SCH (10:12)
[2017-07-10] MEDS: Fluticasone/Vilanterol [Breo Ellipta 200-25 Mcg Inh] IH SCH (10:12)
[2017-07-10] MEDS: PANTOPRAZOLE SODIUM 40 MG VIAL IVP SCH (10:12)
[2017-07-10] MEDS: HYDROCOD/APAP 7.5/325 IN 15ML UDCUP PO PRN (10:32)
--- NOTE | 2017-07-10 11:08 | ASMTCMCOM ---
CM Note CM Note Notes: Pt. has d/c order today. SWer checked in w/ bedside RN. Pt. still independent. Date Signed: 07/10/2017 11:08 AM Electronically Signed By:Britney Hopson LCSW
[2017-07-10] MEDS: PYRIDOXINE HCL 100 MG TAB PO SCH (12:07)
[2017-07-10] MEDS: VITAMIN B COMPLEX 1 EA CAP/TAB PO SCH (12:07)
[2017-07-10] MEDS: CHOLECALCIFEROL VIT D3 1,000 UNITS TAB PO SCH (12:07)
[2017-07-10] MEDS: CYANO/VITAMIN B12 1000 MCG TAB PO SCH (12:19)
--- NOTE | 2017-07-10 19:47 | GDS ---
[f rep st] DISCHARGE SUMMARY DISCHARGE DIAGNOSES: 1. Hematemesis, resolved. 2. History of esophageal varices, status post banding 1 week prior to admission. 3. Hyponatremia, resolved. 4. Cirrhosis with ascites. 5. End-stage liver disease. 6. History of hepatic encephalopathy. 7. Portal hypertension. CONSULTANTS: Dr. Betty Olivier, Gastroenterology. HISTORY: For details, please see the History and Physical dated July 08, 2017. In brief, the patie nt is a 51-year-old male with history of alcoholic cirrhosis with ascites and recent esophageal varic eal bleed, who presents to the emergency department with hematemesis. He just underwent variceal ban ding by Dr. Thomas 1 week prior to admission. He also endorsed melena on arrival and did have heme-p ositive stool. He was admitted to the hospital on octreotide drip, IV PPI, and empiric Rocephin, and GI was consulted. HOSPITAL COURSE: The patient was admitted to med/surg unit. Gastroenterology was consulted. He had no further hematemesis during the hospitalization. His hemoglobin remained unchanged at approximate ly 11. He had no fevers and a benign abdominal exam with low suspicion for SBP. He was empirically covered with IV ceftriaxone due to risk for bacteremia in the setting of GI bleeding in a patient wit h cirrhosis and ascites. Antibiotics were discontinued at discharge. GI consult did not feel he war ranted repeat upper endoscopy, as this may pose a risk of knocking off 1 of his recent bands and poss ibly hastening a worsening bleeding scenario. Since his hemoglobin remained completely unchanged, he had no further evidence of active bleeding, repeat endoscopy was deferred. He was treated with octr eotide and IV PPI and was discharged to continue on PPI therapy, as he has been doing. DISPOSITION: Patient is discharged home in stable condition. FOLLOWUP: The patient is follow up with Agricultural Education Teacher as well as Dr. Ana Cerna, his primar y care. DISCHARGE MEDICATIONS: Please see [facility] for completed outpatient medication list. He will contin ue all outpatient medications as previously prescribed. /[id number]/MODL
== END 2017-07-10 12:30 | disposition home or self-care (01) | DRG 378 ==
LOC: F3E 20:28
PROVIDERS: ADMIT Family Medicine; ATTEND Family Medicine
DX: K92.0 Hematemesis (principal); E87.1 Hypo-osmolality and hyponatremia; K92.1 Melena; K70.31 Alcoholic cirrhosis of liver with ascites; I27.20 Pulmonary hypertension, unspecified; Z09 Encounter for follow-up examination after completed treatment for conditions other than malignant neoplasm; Z72.0 Tobacco use; Z80.0 Family history of malignant neoplasm of digestive organs
CPT/HCPCS: 96374; J0696; J2270; J2354; J2405

== ENCOUNTER 2017-07-11 12:11 | Emergency (ER) | payer OTHER ==
--- NOTE | 2017-07-11 12:52 | EDPHY ---
HPI/HX/ROS/PE/MDM Narrative: CHIEF COMPLAINT: Coughing up blood HPI: The patient is a 51 y/o male who was discharged yesterday from this hospital s/ p upper GI bleed complaining of coughing up blood since 11:00, 2 hours ago. On 07/01/17, he had an EGD and had 4 esophageal bands placed for esophageal varices. However, on 07/08/17, 3 days ago, he started having black stools and was admitted to this hospital. Today after swallowing a pill, he felt some pain in his throat and coughed up a small amount of blood. Denies recent dark stools , urinary complaints, shortness of breath, fever. REVIEW OF SYSTEMS: Aside from elements discussed in the HPI, a comprehensive 10-point review of systems was reviewed and is negative. PMH: Upper GI bleed, esophageal varices, cirrhosis, hernia, TBI (2011), hyponatremia, hypertension, anemia SOCIAL HISTORY: Lives in [place], employed, , last drank alcohol 3 years ago PHYSICAL EXAM: General: Patient is alert, in no acute distress. ENT: Eyes are normal to inspection. ENT inspection normal. No blood in pharynx. Neck: Normal inspection. Full range of motion. Respiratory: No respiratory distress. Breath sounds normal bilaterally. Cardiovascular: Regular rate and rhythm. Strong peripheral pulses. Normal cap refill. Abdomen: Mild diffuse abdominal tenderness to palpation. There are no peritoneal signs. There are normal bowel sounds. Back: Normal to inspection. No tenderness to palpation. Skin: Normal color. No rash. Warm and dry. Extremities: Normal appearance. Full range of motion. Neuro: Oriented x3. Normal motor function. Normal sensory function. ED Course: 1435: Reassessed patient and discussed laboratory and imaging findings. 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 Return precautions provided; patient is comfortable with this plan. MDM: This patient presents with a single episode of a small amount of blood in his mouth. His history is significant for chronic liver disease with known esophageal varices with recent banding. I reviewed his discharge summary from yesterday and the plan was to monitor his Hct and avoid a repeat EGD. He is asymptomatic here in the ED with normal vitals and a Hct that is actually improved from the last draw. I offered him admission for observation and further workup but he declines. He would prefer to go home and follow-up with his GI specialist as an outpatient. We discussed strict return precautions. The patient is tolerating PO without difficulty. - Data Points Imaging Results: Imaging Impressions Chest X-Ray 07/11/17 12:24 Impression: 1. Mild airways disease without pneumonia 2. Azygos vein versus amie enlargement. 3. Suspect splenomegaly. Imaging: I viewed and interpreted images myself Laboratory Results: Laboratory Results 07/11/17 13:00 07/11/17 13:00 07/11/17 07/11/17 07/11/17 13:00 13:00 13:00 WBC 8.23 10^3/uL 10^3/uL (3.80-9.50) RBC 4.56 10^6/uL 10^6/uL (4.40-6.38) Hgb 11.5 g/dL L g/dL (13.7-17.5) Hct 34.6 % L % (40.0-51.0) MCV 75.9 fL L fL (81.5-99.8) MCH 25.2 pg L pg (27.9-34.1) MCHC 33.2 g/dL g/dL (32.4-36.7) RDW 18.3 % H % (11.5-15.2) Plt Count 153 10^3/uL 10^3/uL (150-400) MPV 10.9 fL fL (8.7-11.7) Neut % (Auto) 75.7 % H % (39.3-74.2) Lymph % (Auto) 5.6 % L % (15.0-45.0) [place] % (Auto) 9.5 % % (4.5-13.0) Eos % (Auto) 7.7 % H % (0.6-7.6) Baso % (Auto) 1.0 % % (0.3-1.7) Nucleat RBC Rel Count 0.0 % % (0.0-0.2) Absolute Neuts (auto) 6.24 10^3/uL 10^3/uL (1.70-6.50) Absolute Lymphs (auto) 0.46 10^3/uL L 10^3/uL (1.00-3.00) Absolute Monos (auto) 0.78 10^3/uL 10^3/uL (0.30-0.80) Absolute Eos (auto) 0.63 10^3/uL H 10^3/uL (0.03-0.40) Absolute Basos (auto) 0.08 10^3/uL 10^3/uL (0.02-0.10) Absolute Nucleated RBC 0.00 10^3/uL 10^3/uL (0-0.01) Immature Gran % 0.5 % % (0.0-1.1) Immature Gran # 0.04 10^3/uL 10^3/uL (0.00-0.10) PT 15.9 SEC H SEC (12.0-15.0) INR 1.25 H (0.83-1.16) APTT 31.5 SEC SEC (23.0-38.0) Sodium 134 mEq/L L mEq/L (135-145) Potassium 4.5 mEq/L mEq/L (3.5-5.2) Chloride 103 mEq/L mEq/L (97-110) Carbon Dioxide 20 mEq/l L mEq/l (22-31) Anion Gap 11 mEq/L mEq/L (8-16) BUN 15 mg/dL mg/dL (7-23) Creatinine 0.8 mg/dL mg/dL (0.7-1.3) Estimated GFR > 60 Glucose 163 mg/dL H mg/dL (70-100) Calcium 8.6 mg/dL mg/dL (8.5-10.4) Medications Given: Discontinued Medications Sodium Chloride (Ns) 1,000 mls @ 0 mls/hr IV EDNOW ONE; Wide Open PRN Reason: Protocol Stop: 07/11/17 13:39 Last Admin: 07/11/17 13:41 Dose: 1,000 mls General Time Seen by Provider: 07/11/17 12:51 Initial Vital Signs: Initial Vital Signs Temperature (C) 36.6 C 07/11/17 12:14 Heart Rate 114 H 07/11/17 12:14 Respiratory Rate 19 07/11/17 12:14 Blood Pressure 115/80 07/11/17 12:14 O2 Sat (%) 96 07/11/17 12:14 O2 Delivery Mode Room Air Allergies/Adverse Reactions: No Known Allergies Allergy (Verified 04/21/18 12:13) Home Medications: Medication Instructions Recorded Fluticasone/Vilanterol [Breo 1 each IH DAILY 12/27/16 Ellipta 200-25 Mcg INH] Furosemide [Lasix 40 MG (*)] 160 mg PO MOWEFR@12/27/16 Herbals/Supplements -Info Only 1 ea PO DAILY 12/27/16 Yvette's Leg Cramp Tabs 1 tab PO DAILY PRN 12/27/16 Levothyroxine [Synthroid 150 mcg 150 mcg PO DAILY06 12/27/16 (*)] Multivitamins [Multivitamin (*)] 1 each PO DAILY@12/27/16 [place]-3 Fatty Acids [Fish Oil 1000 1,000 mg PO DAILY@1300 12/27/16 mg (*)] Rifaximin [Xifaxan] 550 mg PO BID@12/27/16 Vitamin B Complex [B Complex] 1 each PO DAILY@12/27/16 Zolpidem Tartrate [Ambien 5MG (*)] 10 mg PO HS PRN 12/27/16 oxyCODONE IR [Oxycodone Ir (*)] 5 mg PO DAILY PRN 12/27/16 Lortab 10 mg-300 mg/15 ml Elxr 7.5 ml PO Q4H PRN 07/02/17 Amiloride 10 mg PO DAILY@07/08/17 Cholecalciferol Vit D3 [Vitamin D3 1,000 units PO DAILY@07/08/17 (*)] Cyanocobalamin [Vitamin B12 (*)] 1,000 mcg PO DAILY@07/08/17 Furosemide [Lasix 40 MG (*)] 120 mg PO SUTUTHSA@07/08/17 Lactulose 20 gm PO TID@,,07/08/17 Magnesium Glycinate [MAG GLYCINATE] 100 mg PO DAILY 07/08/17 Melatonin [Melatonin 3 MG (*)] 3 mg PO HS PRN 07/08/17 Ondansetron HCl [Zofran] 4 - 8 mg PO DAILY PRN 07/08/17 Pantoprazole Sodium [Protonix 40mg 40 mg PO DAILY@07/08/17 (*)] Pyridoxine HCl [Vitamin B-6 100 mg 100 mg PO DAILY@07/08/17 (*)] Ramelteon [Rozerem] 8 mg PO HS PRN 07/08/17 Spironolactone [Aldactone] 125 mg PO MOWEFR@06 07/08/17 Departure - Departure Disposition: Home, Routine, Self-Care Clinical Impression: Esophageal varices Condition: Good Instructions: Gastrointestinal Bleeding (ED) Additional Instructions: Return to the ED immediately for any episodes of coughing up or vomiting blood, abdominal pain, feeling weak or other worsening of condition. We would be happy to evaluate you in the ED at any time. Follow-up with your GI doctor and PCP within one week. Referrals: Ana Cerna MD [Primary Care Provider] - As per Instructions Report Scribed for: Otoniel Hernández Report Scribed by: Kasey Dodd Date of Report: 07/11/17 Time of Report: 12:58 Physician Review and Approval Statement: Portions of this note were transcribed by an ED scribe. I personally performed the history, physical exam, and medical decision making; and confirm the accuracy of the information in the transcribed note.
[2017-07-11] MEDS ORDERED: NS 1,000 ML IV ONE (13:38)
[2017-07-11 13:43] LABS: PLATELET COUNT 153 10^3/uL (150-400)
[2017-07-11 13:53] LABS: INR 1.25 (0.83-1.16); PROTIME(PATIENT) 15.9 SEC (12.0-15.0)
[2017-07-11 14:57] VITALS: BP 108/67
== END 2017-07-11 15:00 | disposition home or self-care (01) ==
DX: I85.01 Esophageal varices with bleeding (principal); I10 Essential (primary) hypertension; E86.9 Volume depletion, unspecified

== ENCOUNTER 2017-07-20 11:08 | Emergency (ER) | payer OTHER ==
--- NOTE | 2017-07-20 11:39 | CPEKG ---
Heart Rate: 81 RR Interval: 741 P-R Interval: 164 QRSD Interval: 84 QT Interval: 348 QTC Interval: 404 P [place]: 45 QRS [place]: -30 T Wave [place]: 39 EKG Severity - OTHERWISE NORMAL ECG - EKG Impression: SINUS RHYTHM EKG Impression: LEFT AXIS DEVIATION Electronically Signed By: Nanci Reyes 20-Jul-2017 14:52:47
[2017-07-20] MEDS ORDERED: NS 500 ML IV ONE (11:44)
[2017-07-20 12:02] LABS: PLATELET COUNT 150 10^3/uL (150-400)
[2017-07-20 12:08] LABS: INR 1.19 (0.83-1.16); PROTIME(PATIENT) 15.3 SEC (12.0-15.0)
--- NOTE | 2017-07-20 12:37 | EDPHY ---
H & P Time Seen by Provider: 07/20/17 11:42 HPI/ROS: HPI Concerned about low blood pressure at night. 51-year-old male by private vehicle. This patient has a history of of hematemesis and bleeding esophageal varices with recent admission and discharge on July 08 and July 11 of this year respectively. He presents to the emergency department stating that he has been taking his blood pressure at night and it has been low. He can give me a diastolic number 48 but does not remember the systolic number. He reports also that he is feeling fatigued but he feels this is part of the recovery process. He reports that he tried to get in to see his primary care physician who is out of the office today and her substitute recommended that he come to the emergency department. He otherwise feels that he is recovering. He denies any hematemesis or vomiting. He denies any bloody or melenic stool. Otherwise, he has no other complaints. He states that he will see his primary care physician later this week. ROS: Constitutional: No fever, no chills. As above. Respiratory: No cough. No shortness of breath. Cardiac: No chest pain, no palpitations. Gastrointestinal: No abdominal pain, no vomiting, no diarrhea. Genitourinary: No hematuria. No dysuria or increased frequency with urination. Musculoskeletal: No back pain. No neck pain. No myalgias or arthralgias. Neurological: No headache. No focal weakness or altered sensation. Past medical history: Hematemesis, bleeding esophageal varices, cirrhosis, hernia, traumatic brain injury, hyponatremia, portal hypertension, anemia. Social history: Currently here by himself. No alcohol. Physical Exam: General Appearance: Alert, no distress. This patient is responding to questions appropriately and in full sentences. This patient appears well- hydrated and well-nourished. Eyes: Pupils equal and round no pallor or injection. No lid edema, erythema or injection. Respiratory: There are no retractions, lungs are clear to auscultation with good air movement bilaterally. Cardiovascular: Regular rate and rhythm. No murmur. Gastrointestinal: Abdomen is soft and nontender, no masses, bowel sounds normal. No focal tenderness at McBurney's point. No Rosen sign. Neurological: Motor sensory function is grossly intact. Cranial nerves are normal. Gait is normal. Skin: Warm and dry, no rashes. Musculoskeletal: Neck is supple and nontender. Extremities are symmetrical. All joints range without pain or impingement. Psychiatric: No agitation. No depression. Database: EKG: EKG time is 11:37 a.m.; EKG shows a narrow complex normal sinus rhythm with a ventricular rate of 81. Left axis deviation noted. The NH, QRS, QT intervals are within normal limits. There are no ST-T wave changes indicative of ischemic or injury pattern. No evidence of right heart strain. Interpreted by me. Imaging: Procedures: Emergency department course: Vital signs reviewed. He was placed on a land clearer. IV placed. He was given 500 cc of normal saline. 12:35 p.m., levy re-evaluated. Resting comfortably at this time. Blood pressure currently 111/71. clinical research monitor shows a narrow complex sinus rhythm with ventricular rate of 79. I discussed the results of his blood work. His sodium is low at 127. He has a history of chronic hyponatremia. His hematocrit is currently 33.4 up from 32 on July 17. He feels comfortable going home at this time and following up with his primary care physician later this week for re-evaluation. I feel this is reasonable. He can easily return to the emergency department if needed. I stressed that should he developed any worsening lightheadedness or have any other serious concerns to return to the emergency department immediately. He assured me that he would not hesitate. All of his questions were answered. He was discharged in good condition. Differential Diagnosis: The differential diagnosis on this patient includes but is not limited to history of hypotension and gastrointestinal bleeding. Acute gastrointestinal bleeding, acute anemia, acute hyponatremia unlikely. This represents a partial list of diagnoses considered. These considerations are based on history, physical exam, past history, reassessment and diagnostic testing. Smoking Status: Heavy smoker Constitutional: Initial Vital Signs Temperature (C) 36.7 C 07/20/17 11:14 Heart Rate 92 07/20/17 11:14 Respiratory Rate 18 07/20/17 11:14 Blood Pressure 94/75 L 07/20/17 11:14 O2 Sat (%) 99 07/20/17 11:14 O2 Delivery Mode Room Air Allergies/Adverse Reactions: No Known Allergies Allergy (Verified 07/20/17 11:13) Home Medications: Medication Instructions Recorded Fluticasone/Vilanterol [Breo 1 each IH DAILY 12/27/16 Ellipta 200-25 Mcg INH] Furosemide [Lasix 40 MG (*)] 160 mg PO MOWEFR@12/27/16 Herbals/Supplements -Info Only 1 ea PO DAILY 12/27/16 Yvette's Leg Cramp Tabs 1 tab PO DAILY PRN 12/27/16 Levothyroxine [Synthroid 150 mcg 150 mcg PO DAILY06 12/27/16 (*)] Multivitamins [Multivitamin (*)] 1 each PO DAILY@12/27/16 [place]-3 Fatty Acids [Fish Oil 1000 1,000 mg PO DAILY@1300 12/27/16 mg (*)] Rifaximin [Xifaxan] 550 mg PO BID@12/27/16 Vitamin B Complex [B Complex] 1 each PO DAILY@12/27/16 Zolpidem Tartrate [Ambien 5MG (*)] 10 mg PO HS PRN 12/27/16 oxyCODONE IR [Oxycodone Ir (*)] 5 mg PO DAILY PRN 12/27/16 Lortab 10 mg-300 mg/15 ml Elxr 7.5 ml PO Q4H PRN 07/02/17 Amiloride 10 mg PO DAILY@07/08/17 Cholecalciferol Vit D3 [Vitamin D3 1,000 units PO DAILY@07/08/17 (*)] Cyanocobalamin [Vitamin B12 (*)] 1,000 mcg PO DAILY@07/08/17 Furosemide [Lasix 40 MG (*)] 120 mg PO SUTUTHSA@07/08/17 Lactulose 20 gm PO TID@,07/08/17 Magnesium Glycinate [MAG GLYCINATE] 100 mg PO DAILY 07/08/17 Melatonin [Melatonin 3 MG (*)] 3 mg PO HS PRN 07/08/17 Ondansetron HCl [Zofran] 4 - 8 mg PO DAILY PRN 07/08/17 Pantoprazole Sodium [Protonix 40mg 40 mg PO DAILY@07/08/17 (*)] Pyridoxine HCl [Vitamin B-6 100 mg 100 mg PO DAILY@07/08/17 (*)] Ramelteon [Rozerem] 8 mg PO HS PRN 07/08/17 Spironolactone [Aldactone] 125 mg PO MOWEFR@06 07/08/17 Gabapentin 07/20/17 Medical Decision Making - Data Points Laboratory Results: Laboratory Results 07/20/17 11:52 07/20/17 11:52 07/20/17 07/20/17 07/20/17 11:52 11:52 11:52 WBC 7.30 10^3/uL 10^3/uL (3.80-9.50) RBC 4.45 10^6/uL 10^6/uL (4.40-6.38) Hgb 11.0 g/dL L g/dL (13.7-17.5) Hct 33.4 % L % (40.0-51.0) MCV 75.1 fL L fL (81.5-99.8) MCH 24.7 pg L pg (27.9-34.1) MCHC 32.9 g/dL g/dL (32.4-36.7) RDW 16.8 % H % (11.5-15.2) Plt Count 150 10^3/uL 10^3/uL (150-400) MPV 10.0 fL fL (8.7-11.7) Neut % (Auto) 78.1 % H % (39.3-74.2) Lymph % (Auto) 6.2 % L % (15.0-45.0) [place] % (Auto) 10.7 % % (4.5-13.0) Eos % (Auto) 3.8 % % (0.6-7.6) Baso % (Auto) 0.8 % % (0.3-1.7) Nucleat RBC Rel Count 0.0 % % (0.0-0.2) Absolute Neuts (auto) 5.70 10^3/uL 10^3/uL (1.70-6.50) Absolute Lymphs (auto) 0.45 10^3/uL L 10^3/uL (1.00-3.00) Absolute Monos (auto) 0.78 10^3/uL 10^3/uL (0.30-0.80) Absolute Eos (auto) 0.28 10^3/uL 10^3/uL (0.03-0.40) Absolute Basos (auto) 0.06 10^3/uL 10^3/uL (0.02-0.10) Absolute Nucleated RBC 0.00 10^3/uL 10^3/uL (0-0.01) Immature Gran % 0.4 % % (0.0-1.1) Immature Gran # 0.03 10^3/uL 10^3/uL (0.00-0.10) PT 15.3 SEC H SEC (12.0-15.0) INR 1.19 H (0.83-1.16) APTT 30.4 SEC SEC (23.0-38.0) Sodium 127 mEq/L L mEq/L (135-145) Potassium 4.6 mEq/L mEq/L (3.5-5.2) Chloride 91 mEq/L L mEq/L (97-110) Carbon Dioxide 24 mEq/l mEq/l (22-31) Anion Gap 12 mEq/L mEq/L (8-16) BUN 14 mg/dL mg/dL (7-23) Creatinine 0.7 mg/dL mg/dL (0.7-1.3) Estimated GFR > 60 Glucose 195 mg/dL H mg/dL (70-100) Calcium 9.1 mg/dL mg/dL (8.5-10.4) Total Bilirubin 0.9 mg/dL mg/dL (0.1-1.4) Conjugated Bilirubin 0.5 mg/dL mg/dL (0.0-0.5) Unconjugated Bilirubin 0.4 mg/dL mg/dL (0.0-1.1) AST 35 IU/L IU/L (17-59) ALT 45 IU/L IU/L (21-72) Alkaline Phosphatase 156 IU/L H IU/L (38-126) Total Protein 8.4 g/dL H g/dL (6.3-8.2) Albumin 4.5 g/dL g/dL (3.5-5.0) Medications Given: Discontinued Medications Sodium Chloride (Ns) 500 mls @ 1,000 mls/hr IV EDNOW ONE PRN Reason: Protocol Stop: 07/20/17 12:13 Last Admin: 07/20/17 12:11 Dose: 500 mls Departure - Departure Disposition: Home, Routine, Self-Care Clinical Impression: History of gastrointestinal bleeding, Anemia, Hyponatremia Condition: Good Instructions: Gastrointestinal Bleeding (ED), Hyponatremia (ED) Additional Instructions: Read and follow provided instructions. Follow-up with your primary care physician in 1-2 days for re-evaluation as discussed. You should have your blood levels, hemoglobin and hematocrit rechecked as well as your sodium rechecked at this time. Take your medication as prescribed. Return to the emergency department for worsening symptoms or any serious concerns. Referrals: Ana Cerna MD [Primary Care Provider] - As per Instructions
[2017-07-20 12:57] VITALS: BP 105/74
== END 2017-07-20 12:58 | disposition home or self-care (01) ==
DX: D64.9 Anemia, unspecified (principal); E87.1 Hypo-osmolality and hyponatremia; E86.9 Volume depletion, unspecified; F17.200 Nicotine dependence, unspecified, uncomplicated; Z87.19 Personal history of other diseases of the digestive system

== ENCOUNTER → 2017-08-06 | Outpatient (CLI) | payer OTHER | LOC: BMCIMAGING 13:43 | PROVIDERS: ATTEND Family Medicine | DX: K70.31 Alcoholic cirrhosis of liver with ascites (principal); K80.20 Calculus of gallbladder without cholecystitis without obstruction; N28.1 Cyst of kidney, acquired ==

== ENCOUNTER → 2017-12-22 | Outpatient (CLI) | payer OTHER | LOC: FIMAGING 12:24 | PROVIDERS: ATTEND Family Medicine | DX: K74.60 Unspecified cirrhosis of liver (principal); R18.8 Other ascites; N28.1 Cyst of kidney, acquired ==

== ENCOUNTER 2018-02-19 10:26 | Inpatient (IN) | payer OTHER ==
[2018-02-19] MEDS ORDERED: NS 1,000 ML IV ONE (10:47)
--- NOTE | 2018-02-19 10:59 | EDPHY ---
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 He also has a history of esophageal varices. The patient was last banded in June of this year. He presents to the ED after an episode of hematemesis or earlier today. The patient also has had some melanotic stool over the past day. The patient did have surveillance endoscopy in December which demonstrated varices which were not bleeding. The patient has taken his regular medications including Protonix and lactulose. The patient also complains of a worsening headache over the past week. He denies any history of fall or trauma. The patient's headache did improve with vomiting earlier today. REVIEW OF SYSTEMS: A comprehensive 10 point review of systems is otherwise negative aside from elements mentioned in the history of present illness. Source: Patient - Medical/Surgical History Hx Asthma: No Hx Chronic Respiratory Disease: No Hx Diabetes: No Hx Cardiac Disease: No Hx Renal Disease: No Hx Cirrhosis: Yes Hx Alcoholism: Yes Hx HIV/AIDS: No Hx Splenectomy or Spleen Trauma: No Other PMH: CIRRHOSIS, esophageal varices, upper gi bleed, hernia, TBI 08/2011. hyponatremia, portal hypertension, anemia - Social History Smoking Status: Heavy smoker - Physical Exam Exam: General Appearance: Alert, no distress Eyes: Pupils equal and round no pallor or injection ENT, Mouth: Mucous membranes moist Respiratory: There are no retractions, lungs are clear to auscultation Cardiovascular: Regular rate and rhythm Gastrointestinal: Epigastric tenderness to palpation Neurological: A&O, normal motor function, normal sensory exam, normal cranial nerves Skin: Warm and dry, no rashes Musculoskeletal: Neck is supple nontender Extremities: symmetrical, full range of motion Constitutional: Initial Vital Signs Temperature (C) 36.6 C 02/19/18 10:29 Heart Rate 77 02/19/18 10:29 Respiratory Rate 16 02/19/18 10:29 Blood Pressure 95/62 L 02/19/18 10:29 O2 Sat (%) 96 02/19/18 10:29 O2 Delivery Mode Room Air Allergies/Adverse Reactions: No Known Allergies Allergy (Verified 07/20/17 11:13) Home Medications: Medication Instructions Recorded Fluticasone/Vilanterol [Breo 1 each IH DAILY 12/27/16 Ellipta 200-25 Mcg INH] Furosemide [Lasix 40 MG (*)] 160 mg PO MOWEFR@12/27/16 Herbals/Supplements -Info Only 1 ea PO DAILY 12/27/16 Yvette's Leg Cramp Tabs 1 tab PO DAILY PRN 12/27/16 Levothyroxine [Synthroid 150 mcg 150 mcg PO DAILY06 12/27/16 (*)] Multivitamins [Multivitamin (*)] 1 each PO DAILY@12/27/16 [place]-3 Fatty Acids [Fish Oil 1000 1,000 mg PO DAILY@1300 12/27/16 mg (*)] Rifaximin [Xifaxan] 550 mg PO BID@12/27/16 Vitamin B Complex [B Complex] 1 each PO DAILY@12/27/16 Zolpidem Tartrate [Ambien 5MG (*)] 10 mg PO HS PRN 12/27/16 oxyCODONE IR [Oxycodone Ir (*)] 5 mg PO DAILY PRN 12/27/16 Lortab 10 mg-300 mg/15 ml Elxr 7.5 ml PO Q4H PRN 07/02/17 Amiloride 10 mg PO DAILY@07/08/17 Cholecalciferol Vit D3 [Vitamin D3 1,000 units PO DAILY@07/08/17 (*)] Cyanocobalamin [Vitamin B12 (*)] 1,000 mcg PO DAILY@07/08/17 Furosemide [Lasix 40 MG (*)] 120 mg PO SUTUTHSA@07/08/17 Lactulose 20 gm PO TID@,,07/08/17 Magnesium Glycinate [MAG GLYCINATE] 100 mg PO DAILY 07/08/17 Melatonin [Melatonin 3 MG (*)] 3 mg PO HS PRN 07/08/17 Ondansetron HCl [Zofran] 4 - 8 mg PO DAILY PRN 07/08/17 Pantoprazole Sodium [Protonix 40mg 40 mg PO DAILY@07/08/17 (*)] Pyridoxine HCl [Vitamin B-6 100 mg 100 mg PO DAILY@07/08/17 (*)] Ramelteon [Rozerem] 8 mg PO HS PRN 07/08/17 Spironolactone [Aldactone] 125 mg PO MOWEFR@06 07/08/17 Gabapentin 07/20/17 Medical Decision Making - Diagnostics Imaging Results: Imaging Impressions Head CT 02/19/18 10:57 Impression: No acute intracranial hemorrhage. 2 Sydni was notified of these findings by telephone at 11:31 AM on 02/19/2018 ED Course/Re-evaluation: The patient presents to the ED after singular episode of hematemesis with approximately 2-3 tbsp of bright red blood. The patient is currently hemodynamically stable. He does have a history of esophageal varices. Additionally, the patient had complained of fairly severe headache over the past week. He was noted to be neurologically intact without evidence of meningeal symptoms. Given his complaints of headache and likely coagulopathy he was taken for noncontrast head CT scan which demonstrates no evidence of intracranial hemorrhage. The patient's initial hemoglobin and hematocrit were stable. The patient did receive 40 mg of IV Protonix. I consulted with Dr. Jerod Barr from Gastroenterology who will make arrangements for endoscopy today. He has requested the patient be kept NPO. Consultation was made with the hospitalist service and the patient will be admitted by Dr. Eric Pedersen. The patient has been typed and crossed in the emergency department. Differential Diagnosis: Differential diagnosis considered includes upper GI bleed, lower GI bleed, coagulopathy, esophageal varices, peptic ulcer disease - Data Points Laboratory Results: Laboratory Results 02/19/18 11:20 02/19/18 11:20 02/19/18 02/19/18 02/19/18 12:05 11:20 11:20 WBC RBC Hgb Hct MCV MCH MCHC RDW Plt Count MPV Neut % (Auto) Lymph % (Auto) [place] % (Auto) Eos % (Auto) Baso % (Auto) Nucleat RBC Rel Count Absolute Neuts (auto) Absolute Lymphs (auto) Absolute Monos (auto) Absolute Eos (auto) Absolute Basos (auto) Absolute Nucleated RBC Immature Gran % Seg Neutrophils % Band Neutrophils % Lymphocytes % Monocytes % Eosinophils % Basophils % Metamyelocytes % Myelocytes % Promyelocytes % Blast Cells % Immature Gran # Absolute Seg Neuts Absolute Band Neuts Absolute Lymphocytes Absolute Monocytes Absolute Eosinophils Absolute Basophils Absolute Metamyelocyte Absolute Myelocytes Absolute Promyelocytes Absolute Plasma Cells Nucleated RBCs Absolute Blast Cells Plasma Cells % Platelet Estimate PT 16.4 SEC H SEC (12.0-15.0) INR 1.30 H (0.83-1.16) APTT 31.4 SEC SEC (23.0-38.0) Sodium 139 mEq/L mEq/L (135-145) Potassium 4.5 mEq/L mEq/L (3.3-5.0) Chloride 107 mEq/L mEq/L (97-110) Carbon Dioxide 22 mEq/l mEq/l (22-31) Anion Gap 10 mEq/L mEq/L (6-14) BUN 18 mg/dL mg/dL (7-23) Creatinine 0.6 mg/dL L mg/dL (0.7-1.3) Estimated GFR > 60 Glucose 129 mg/dL H mg/dL (70-100) Calcium 9.3 mg/dL mg/dL (8.5-10.4) Total Bilirubin 0.8 mg/dL mg/dL (0.1-1.4) Conjugated Bilirubin 0.3 mg/dL mg/dL (0.0-0.5) Unconjugated Bilirubin 0.5 mg/dL mg/dL (0.0-1.1) AST 23 IU/L IU/L (17-59) ALT 27 IU/L IU/L (21-72) Alkaline Phosphatase 127 IU/L H IU/L (38-126) Total Protein 8.2 g/dL g/dL (6.3-8.2) Albumin 4.4 g/dL g/dL (3.5-5.0) Lipase 201 IU/L IU/L (23-300) Patient ABO/Rh Pending Antibody Screen Pending 02/19/18 11:20 WBC 7.47 10^3/uL 10^3/uL (3.80-9.50) RBC 4.78 10^6/uL 10^6/uL (4.40-6.38) Hgb 15.2 g/dL g/dL (13.7-17.5) Hct 43.7 % % (40.0-51.0) MCV 91.4 fL fL (81.5-99.8) MCH 31.8 pg pg (27.9-34.1) MCHC 34.8 g/dL g/dL (32.4-36.7) RDW 13.8 % % (11.5-15.2) Plt Count 97 10^3/uL L 10^3/uL (150-400) MPV 9.9 fL fL (8.7-11.7) Neut % (Auto) Not Reported Lymph % (Auto) Not Reported [place] % (Auto) Not Reported Eos % (Auto) Not Reported Baso % (Auto) Not Reported Nucleat RBC Rel Count Not Reported Absolute Neuts (auto) Not Reported Absolute Lymphs (auto) Not Reported Absolute Monos (auto) Not Reported Absolute Eos (auto) Not Reported Absolute Basos (auto) Not Reported Absolute Nucleated RBC Not Reported Immature Gran % Not Reported Seg Neutrophils % 67.0 % % Band Neutrophils % 0.0 % % Lymphocytes % 4.0 % % Monocytes % 8.0 % % Eosinophils % 21.0 % % Basophils % 0.0 % % Metamyelocytes % 0.0 % % Myelocytes % 0.0 % % Promyelocytes % 0.0 % % Blast Cells % 0.0 % % Immature Gran # Not Reported Absolute Seg Neuts 5.00 10^3/uL 10^3/uL (1.70-6.50) Absolute Band Neuts 0.00 10^3/uL 10^3/uL (0.00-0.70) Absolute Lymphocytes 0.30 10^3/uL L 10^3/uL (1.00-3.00) Absolute Monocytes 0.60 10^3/uL 10^3/uL (0.30-0.80) Absolute Eosinophils 1.57 10^3/uL H 10^3/uL (0.03-0.40) Absolute Basophils 0.00 10^3/uL L 10^3/uL (0.02-0.10) Absolute Metamyelocyte 0.00 10^3/mL 10^3/mL (0.00-0.00) Absolute Myelocytes 0.00 10^3/mL 10^3/mL (0.00-0.00) Absolute Promyelocytes 0.00 10^3/uL 10^3/uL (0.00-0.00) Absolute Plasma Cells 0.00 10^3/uL 10^3/uL (0.00-0.00) Nucleated RBCs 0 /100 WBC /100 WBC (0-0) Absolute Blast Cells 0.00 10^3/uL 10^3/uL (0.00-0.00) Plasma Cells % 0.0 % % Platelet Estimate DECREASED L (ADEQ) PT INR APTT Sodium Potassium Chloride Carbon Dioxide Anion Gap BUN Creatinine Estimated GFR Glucose Calcium Total Bilirubin Conjugated Bilirubin Unconjugated Bilirubin AST ALT Alkaline Phosphatase Total Protein Albumin Lipase Patient ABO/Rh Antibody Screen Medications Given: Discontinued Medications Sodium Chloride (Ns) 1,000 mls @ 0 mls/hr IV EDNOW ONE; Wide Open PRN Reason: Protocol Stop: 02/19/18 10:48 Last Admin: 02/19/18 11:20 Dose: 1,000 mls Pantoprazole Sodium (Protonix) 40 mg IVP EDNOW ONE Stop: 02/19/18 12:12 Last Admin: 02/19/18 12:23 Dose: 40 mg Departure - Departure Disposition: [facility] Inpatient Acute Clinical Impression: Upper GI bleeding, Esophageal varices, History of esophagogastroduodenoscopy ( EGD), Liver disease, chronic, due to alcohol Condition: Fair Referrals: Ana Cerna MD [Primary Care Provider] - As per Instructions
[2018-02-19 11:44] LABS: INR 1.3 (0.83-1.16); PROTIME(PATIENT) 16.4 SEC (12.0-15.0)
[2018-02-19 11:55] LABS: PLATELET COUNT 97 10^3/uL (150-400)
[2018-02-19] MEDS ORDERED: PANTOPRAZOLE SODIUM 40 MG VIAL IVP ONE (12:11)
[2018-02-19] MEDS ORDERED: ONDANSETRON DISINTEGRATING 4 MG TAB PO PRN (13:20)
[2018-02-19] MEDS ORDERED: ONDANSETRON 4 MG/2 ML VIAL IVP PRN ×2 (13:20→16:32)
--- NOTE | 2018-02-19 14:28 | GHP ---
DATE OF ADMISSION: 02/19/2018 The patient is a 52-year-old gentleman with history of alcoholic cirrhosis, currently sober, well man aged on medications. He presents today with an episode of melena that happened over the last couple of days. He may be a bit confused. He has a history of esophageal varices. They were banded in June of this year. I do not believe he has had a surveillance endoscopy since then. He had a couple episodes of melena. No nausea. No br ight red blood per rectum. No hematemesis. No coffee-ground emesis. He remains abstinent from alco hol. Does not take aspirin or NSAIDs. He does not take a beta chaim for bleeding prophylaxis. He does take lactulose and rifaximin, which he maintains he has been taking. No fever, chills, cough, sputum, nausea, vomiting, diarrhea. It sounds like his abdomen has been up and down in size. REVIEW OF SYSTEMS: Complete 10-point review of systems conducted, negative except as noted in the HP I. PAST MEDICAL HISTORY: 1. Cirrhosis secondary to alcohol. 2. Diabetes. 3. Hepatic encephalopathy. 4. Esophageal varices. 5. Traumatic brain injury in August 2011. 6. History of hyponatremia. 7. Portal hypertension. ALLERGIES: No known drug allergies. HOME MEDICATIONS: Lasix, amelo ride, rifaximin, lactulose, B12, D3, magnesium for leg cramps, gabape ntin, oxycodone, levothyroxine, melatonin, multivitamin, Ambien, pantoprazole. SOCIAL HISTORY: He lives in [place]. He is on Disability. No recent alcohol. FAMILY HISTORY: Reviewed, unremarkable. PHYSICAL EXAMINATION: VITAL SIGNS: Temp 36.6, blood pressure 95/62, pulse 77, breathing 16 times a minute, 96% on room air. GENERAL: No acute distress. EYES: Sclerae are anicteric. Oropharynx zenobia ar. Mucous membranes are moist. NECK: Supple, without lymphadenopathy or JVD. LUNGS: Clear to au scultation bilaterally. HEART: S1, S2. ABDOMEN: Soft, distended. Fluid wave. LOWER EXTREMITIES: Without edema. Calves nontender. SKIN: Without rash. NEUROLOGIC: Nonfocal. LABS: White count 7.5, hemoglobin 15, hematocrit 43.7, platelets are 97,000; this is about his basel ine. INR is 1.3, which is about his baseline, maybe a bit higher. Sodium 139, potassium 4.5, chlori de 107, bicarb 22; BUN 18, creatinine 0.6, both at baseline. Liver tests are normal other than a sli ghtly elevated alkaline phosphatase at 127; it is chronically elevated. Lipase 201. Noncontrast head CT obtained because of headache shows no acute hemorrhage. I have discussed the court e with Dr. Judah Troy. ASSESSMENT/PLAN: A 52-year-old gentleman with cirrhosis, presents with melena, stable blood counts. 1. Melena, concerning for upper gastrointestinal bleed. Certainly, this is not behaving like a typi trevor upper gastrointestinal bleed from varices with hematemesis and hemodynamic instability. I think we can forego octreotide at this time. Gastroenterology has been consulted. I will continue Protoni x. Will cycle hematocrits. 2. Confusion. The patient is modestly encephalopathic. This may be lactulose or this may be hepati c encephalopathy. This may be his baseline from his traumatic brain injury. Certainly, it could be from spontaneous bacterial peritonitis as well. I will give him ceftriaxone and perform diagnostic p aracentesis. 3. Diabetes. Will hold metformin. His sugars are normal here. I think this is a mild case. Will follow. 4. Encephalopathy. I believe the patient has probably a hepatic encephalopathy. Will follow. Greyson delvalle, he does not have asterixis. Will continue his medications. 5. Prophylaxis. Pharmacologic prophylaxis is contraindicated. DISPOSITION: Observation status. GI has been consulted. May warrant endoscopy. /[id number]/MODL
[2018-02-19] MEDS ORDERED: LR 1,000 ML IV ONE (15:26)
--- NOTE | 2018-02-19 15:27 | PDANEPAE ---
ANE History of Present Illness EGD ANE Past Medical History - Cardiovascular History Hx Hypertension: No Hx Arrhythmias: No Hx Chest Pain: No Hx Coronary Artery / Peripheral Vascular Disease: No Hx CHF / Valvular Disease: No Hx Palpitations: No - Pulmonary History Hx COPD: No Hx Asthma/Reactive Airway Disease: No Hx Recent Upper Respiratory Infection: No Hx Oxygen in Use at Home: No Hx Sleep Apnea: No - Neurologic History Hx Cerebrovascular Accident: No Hx Seizures: No Hx Dementia: No Neurologic History Comment: Hx of traumatic brain injury - Endocrine History Hx Diabetes: No Hypothyroid: Yes Hyperthyroid: No Obesity: mild - Renal History Hx Renal Disorders: No - Liver History Hx Hepatic Disorders: Yes Hepatic History Comment: ETOH hepatitis, cirrhosis, portal hypertension,ascites - Neurological & Psychiatric Hx Hx Neurological and Psychiatric Disorders: Yes Neurological / Psychiatric History Comment: Hx of TBI, anxiety, depression - Cancer History Hx Cancer: No - Congenital Disorder History Hx Congenital Disorders: No - GI History Hx Gastrointestinal Disorders: Yes Gastrointestinal History Comment: Hx of GI bleed, esophageal varices - Other Health History Other Health History: Hypothyroid, L3-4 disk herniation - Chronic Pain History Chronic Pain: Yes - Surgical History Prior Surgeries: Hernia repair 2009, banding of esophageal varices 2011 ANE Review of Systems Review of Systems: ANE Patient History - Allergies Allergies/Adverse Reactions: No Known Allergies Allergy (Verified 07/20/17 11:13) - Home Medications Home Medications: Fluticasone/Vilanterol [Breo Ellipta 200-25 Mcg INH] 1 each IH DAILY 12/27/16 [ Last Taken 02/19/18] Furosemide [Lasix 40 MG (*)] 160 mg PO MOWEFR@12/27/16 [Last Taken 02/19/18] Herbals/Supplements -Info Only 1 ea PO DAILY 12/27/16 [Last Taken 07/08/17] Yvette's Leg Cramp Tabs 1 tab PO DAILY PRN 12/27/16 [Last Taken 07/08/17] Levothyroxine [Synthroid 150 mcg (*)] 150 mcg PO DAILY@12/27/16 [Last Taken 02/19/18] Multivitamins [Multivitamin (*)] 1 each PO DAILY@12/27/16 [Last Taken ] Rifaximin [Xifaxan] 550 mg PO BID@12/27/16 [Last Taken 02/19/18] Vitamin B Complex [B Complex] 1 each PO DAILY@11 12/27/16 [Last Taken 02/18/18] Zolpidem Tartrate [Ambien 5MG (*)] 10 mg PO HS 12/27/16 [Last Taken 02/18/18] oxyCODONE IR [Oxycodone Ir (*)] 5 mg PO DAILY PRN 12/27/16 [Last Taken 02/18/18] Amiloride 10 mg PO MWF@07/08/17 [Last Taken 02/19/18] Cholecalciferol Vit D3 [Vitamin D3 (*)] 1,000 units PO Q2D@07/08/17 [Last Taken 02/17/18] Cyanocobalamin [Vitamin B12 (*)] 1,000 mcg PO DAILY@07/08/17 [Last Taken ] Furosemide [Lasix 40 MG (*)] 120 mg PO SUTUTHSA@07/08/17 [Last Taken 02/18/18 ] Lactulose 30 gm PO QID@,07/08/17 [Last Taken 02/19/18 06:00] Magnesium Glycinate [MAG GLYCINATE] 100 mg PO DAILY18 07/08/17 [Last Taken 02/18] Melatonin [Melatonin 3 MG (*)] 3 mg PO HS PRN 07/08/17 [Last Taken 02/18/18] Ondansetron HCl [Zofran] 4 - 8 mg PO DAILY PRN 07/08/17 [Last Taken 07/08/17] Pantoprazole Sodium [Protonix 40mg (*)] 40 mg PO DAILY@07/08/17 [Last Taken 02/19/18] Pyridoxine HCl [Vitamin B-6 100 mg (*)] 100 mg PO DAILY@07/08/17 [Last Taken 02/18/18] Gabapentin [Neurontin 100 MG (*)] 200 mg PO TID@,,07/20/17 [Last Taken 09:00] Acetaminophen [Tylenol 325mg (*)] 650 mg PO Q6 PRN 02/19/18 [Last Taken Unknown] Ascorbic Acid [Vitamin C 500 mg (*)] 500 mg PO DAILY@02/19/18 [Last Taken ] Calcium Carb W/Vit D [Calcium Carb W/Vit D 500/200 (*)] 500 mg PO DAILY@17 02/19 [Last Taken 02/18/18] Dicyclomine [Bentyl 20 MG (*)] 20 mg PO QID 02/19/18 [Last Taken Unknown] SUMAtriptan [Imitrex 25 MG (*)] 25 mg PO DAILY PRN 02/19/18 [Last Taken Unknown] ZOLMItriptan [Zolmitriptan] 2.5 mg PO DAILY PRN 02/19/18 [Last Taken Unknown] metFORMIN HCL [Glucophage 500 mg (*)] 500 mg PO DAILY@12 02/19/18 [Last Taken ] - Smoking Hx Smoking Status: Heavy smoker - Family Anes Hx Family Hx Anesthesia Complications: None ANE Labs/Vital Signs - Labs Result Diagrams: 02/19/18 11:20 02/19/18 11:20 - Vital Signs Blood Pressure: 102/67 Heart Rate: 72 Respiratory Rate: 14 O2 Sat (%): 96 Height: 167.64 cm Weight: 70.307 kg
[2018-02-19] MEDS ORDERED: PROPOFOL 200 MG/20 ML VIAL ONE ×2 (15:28→16:17)
[2018-02-19] MEDS: ACETAMINOPHEN 325 MG TAB PO PRN (15:42)
[2018-02-19] MEDS ORDERED: fentaNYL 100 MCG/2 ML INJ ONE ×2 (16:14→16:44)
[2018-02-19] MEDS ORDERED: LIDOCAINE 2% 5 ML SDV ONE (16:24)
[2018-02-19] MEDS ORDERED: PHENYLEPHRINE HCL 100 MCG/ML SYR ONE (16:24)
[2018-02-19] MEDS ORDERED: ALBUTEROL 3 ML DEYVIAL IH PRN (16:32)
[2018-02-19] MEDS ORDERED: LR 500 ML IV PRN (16:32)
[2018-02-19] MEDS ORDERED: NALOXONE HCL 0.4 MG/ML INJ IVP PRN (16:32)
--- NOTE | 2018-02-19 16:32 | PDANEPAE ---
ANE Past Medical History - Cardiovascular History Hx Hypertension: No Hx Arrhythmias: No Hx Chest Pain: No Hx Coronary Artery / Peripheral Vascular Disease: No Hx CHF / Valvular Disease: No Hx Palpitations: No - Pulmonary History Hx COPD: No Hx Asthma/Reactive Airway Disease: No Hx Recent Upper Respiratory Infection: No Hx Oxygen in Use at Home: No Hx Sleep Apnea: No - Neurologic History Hx Cerebrovascular Accident: No Hx Seizures: No Hx Dementia: No Neurologic History Comment: Hx of traumatic brain injury - Endocrine History Hx Diabetes: No - Renal History Hx Renal Disorders: No - Liver History Hx Hepatic Disorders: Yes Hepatic History Comment: ETOH hepatitis, cirrhosis, ascites - Neurological & Psychiatric Hx Hx Neurological and Psychiatric Disorders: Yes Neurological / Psychiatric History Comment: Hx of TBI, anxiety, depression - Cancer History Hx Cancer: No - Congenital Disorder History Hx Congenital Disorders: No - GI History Hx Gastrointestinal Disorders: Yes Gastrointestinal History Comment: Hx of GI bleed - Other Health History Other Health History: Hypothyroid, L3-4 disk herniation - Chronic Pain History Chronic Pain: Yes - Surgical History Prior Surgeries: Hernia repair 2009, banding of esophageal varices 2011 ANE Review of Systems Review of Systems: ANE Patient History - Allergies Allergies/Adverse Reactions: No Known Allergies Allergy (Verified 07/20/17 11:13) - Home Medications Home Medications: Fluticasone/Vilanterol [Breo Ellipta 200-25 Mcg INH] 1 each IH DAILY 12/27/16 [ Last Taken 02/19/18] Furosemide [Lasix 40 MG (*)] 160 mg PO MOWEFR@12/27/16 [Last Taken 02/19/18] Herbals/Supplements -Info Only 1 ea PO DAILY 12/27/16 [Last Taken 07/08/17] Yvette's Leg Cramp Tabs 1 tab PO DAILY PRN 12/27/16 [Last Taken 07/08/17] Levothyroxine [Synthroid 150 mcg (*)] 150 mcg PO DAILY@12/27/16 [Last Taken 02/19/18] Multivitamins [Multivitamin (*)] 1 each PO DAILY@12/27/16 [Last Taken ] Rifaximin [Xifaxan] 550 mg PO BID@06,19 12/27/16 [Last Taken 02/19/18] Vitamin B Complex [B Complex] 1 each PO DAILY@12/27/16 [Last Taken 02/18/18] Zolpidem Tartrate [Ambien 5MG (*)] 10 mg PO HS 12/27/16 [Last Taken 02/18/18] oxyCODONE IR [Oxycodone Ir (*)] 5 mg PO DAILY PRN 12/27/16 [Last Taken 02/18/18] Amiloride 10 mg PO MWF@07/08/17 [Last Taken 02/19/18] Cholecalciferol Vit D3 [Vitamin D3 (*)] 1,000 units PO Q2D@07/08/17 [Last Taken 02/17/18] Cyanocobalamin [Vitamin B12 (*)] 1,000 mcg PO DAILY@07/08/17 [Last Taken ] Furosemide [Lasix 40 MG (*)] 120 mg PO SUTUTHSA@07/08/17 [Last Taken 02/18/18 ] Lactulose 30 gm PO QID@,,1530,07/08/17 [Last Taken 02/19/18 06:00] Magnesium Glycinate [MAG GLYCINATE] 100 mg PO DAILY18 07/08/17 [Last Taken 02/18] Melatonin [Melatonin 3 MG (*)] 3 mg PO HS PRN 07/08/17 [Last Taken 02/18/18] Ondansetron HCl [Zofran] 4 - 8 mg PO DAILY PRN 07/08/17 [Last Taken 07/08/17] Pantoprazole Sodium [Protonix 40mg (*)] 40 mg PO DAILY@07/08/17 [Last Taken 02/19/18] Pyridoxine HCl [Vitamin B-6 100 mg (*)] 100 mg PO DAILY@07/08/17 [Last Taken 02/18/18] Gabapentin [Neurontin 100 MG (*)] 200 mg PO TID@,,07/20/17 [Last Taken 09:00] Acetaminophen [Tylenol 325mg (*)] 650 mg PO Q6 PRN 02/19/18 [Last Taken Unknown] Ascorbic Acid [Vitamin C 500 mg (*)] 500 mg PO DAILY@02/19/18 [Last Taken ] Calcium Carb W/Vit D [Calcium Carb W/Vit D 500/200 (*)] 500 mg PO DAILY@17 02/19 [Last Taken 02/18/18] Dicyclomine [Bentyl 20 MG (*)] 20 mg PO QID 02/19/18 [Last Taken Unknown] SUMAtriptan [Imitrex 25 MG (*)] 25 mg PO DAILY PRN 02/19/18 [Last Taken Unknown] ZOLMItriptan [Zolmitriptan] 2.5 mg PO DAILY PRN 02/19/18 [Last Taken Unknown] metFORMIN HCL [Glucophage 500 mg (*)] 500 mg PO DAILY@12 02/19/18 [Last Taken ] - Smoking Hx Smoking Status: Heavy smoker - Family Anes Hx Family Hx Anesthesia Complications: None ANE Labs/Vital Signs - Labs Result Diagrams: 02/19/18 14:55 02/19/18 11:20 - Vital Signs Blood Pressure: 102/67 Heart Rate: 72 Respiratory Rate: 14 O2 Sat (%): 96 Height: 167.64 cm Weight: 70.307 kg ANE Physical Exam - Airway Neck exam: FROM Mallampati Score: Class 1 Mouth exam: poor dentition - Pulmonary Pulmonary: no respiratory distress, no rales or rhonchi - Cardiovascular Cardiovascular: regular rate and rhythym, no murmur, rub, or gallop - ASA Status ASA Status: IV, E ANE Anesthesia Plan Anesthesia Plan: GA with mask
--- NOTE | 2018-02-19 16:41 | GIREPORT ---
[facility] Surgical Services - Endoscopy Department Patient Name: Tj Gudino Procedure Date: 02/19/2018 4:12 PM Patient Type: Inpatient Attending MD/ ER Physician: Jerod Barr MD Procedure: Upper GI endoscopy Indications: Melena Providers: Jerod Barr MD Medicines: Propofol per Anesthesia Complications: No immediate complications. Estimated blood loss: Minimal. Description of Procedure: After obtaining informed consent, the endoscope was passed under direct vision. Throughout the procedure, the patient's blood pressure, pulse, and oxygen saturations were monitored continuously. The Endoscope was intro duced through the mouth, and advanced to the second part of duodenum. The [facility] er GI endoscopy was accomplished without difficulty. The patient tolerated th e procedure well. Findings: Three columns of non-bleeding grade II varices were found in the lower third of the esophagus,. They were 6 mm in largest diameter. Stigmata of rece nt bleeding were evident with adherant white clot and red loly signs were present. Four bands were successfully placed with complete eradication, resulting in deflation of varices. A slow ooze remained at the end of t he procedure. Estimated Blood Loss: Estimated blood loss was minimal. Post Op Diagnosis: - Recently bleeding grade II esophageal varices. Completely eradicated. Banded. - No specimens collected. Recommendation: - Return patient to [facility] for [facility] care. - Use Protonix (pantoprazole) 40 mg PO daily. - Administer an IV bolus of 50 micrograms of octreotide followed by an infusion of 50 micrograms per hour. - Cipro (ciprofloxacin) 400 mg IV q 12 hr. - Clear liquid diet. - Check hemogram with white blood cell count and platelets tomorrow. Attending Participation: I personally performed the entire procedure. Jerod Barr MD Jerod Barr MD 02/19/2018 4:41:18 PM This report has been signed electronicallyJerod Barr MD Number of Addenda: 0 Note Initiated On: 02/19/2018 4:12 PM [email or web address]
--- NOTE | 2018-02-19 16:44 | POSTANESTH ---
Post Anesthetic Evaluation Cardiovascular Status: Similar to Pre-Op Cond Respiratory Status: Similar to Pre-op Cond. Level of Consciousness/Mental Status: Can Participate in Eval Pain Control: Adequate, Prn Tx Ordered Nausea/Vomiting Control: Adequate, Prn Tx Ordered Complications Possibly Related to Anesthesia: None Noted
[2018-02-19] MEDS: fentaNYL 100 MCG/2 ML INJ IVP PRN ×2 (16:47→16:54)
--- NOTE | 2018-02-19 16:54 | GCON ---
DATE OF CONSULTATION: 02/19/2018 REQUESTING PHYSICIAN: Dr. Eric Pedersen. REASON FOR CONSULTATION: Melena and hematemesis. HISTORY OF PRESENT ILLNESS: Tj is a 52-year-old gentleman with a history of chronic alcoholism (sob er for 3 years) with alcoholic cirrhosis, portal hypertension, history of ascites, esophageal varices and esophageal variceal bleeds, as well as duodenal ulcer bleeds. The patient had been periodically scoped by Dr. Erik Thomas with serial esophageal variceal banding. His last endoscopy was perform ed in October of this year, which the patient states showed no significant varices to band. The patie nt has denied any NSAID use. He has noted several dark bowel movements over the last week. He has h ad no nausea or vomiting. He has had no hematemesis or bright red blood per rectum. He presented to the emergency room for further evaluation and was admitted to the hospitalist service. MEDICATIONS: Prior to admission include Xifaxan 550 mg p.o. twice daily, oxycodone 5 mg p.o. p.r.n. back pain, vitamin B complex daily, Zolpidem 10 mg p.o. at bedtime, multivitamin 1 daily, levothyroxi ne 150 mcg p.o. daily, furosemide 40 mg p.o. q.8 hours, lactulose 300 g p.o. t.i.d., amiloride 10 mg p.o. daily, melatonin 3 mg p.o. at bedtime. ALLERGIES: He has no known drug allergies. PAST MEDICAL HISTORY: Significant for Laennec's cirrhosis with portal hypertension, ascites, history of hepatic encephalopathy and esophageal varices bleeding with status post banding (last EGD in showed no varices per patient), diabetes mellitus, traumatic brain injury in August 2011, history of peptic ulcer disease, and hypothyroidism. PAST SURGICAL HISTORY: Unremarkable, other than GI endoscopies as noted above. SOCIAL HISTORY: He is disabled. He lives in [place]. He has abstained from alcohol for greater th an 3 years. He does not smoke tobacco. FAMILY HISTORY: Negative for liver disease or peptic ulcer disease. REVIEW OF SYSTEMS: Otherwise noncontributory for comprehensive review of systems. PHYSICAL EXAMINATION: GENERAL: Well-developed, well-nourished gentleman lying in bed in no apparent distress. VITAL SIGNS: Temperature 36.5 Celsius, pulse 72 and regular, blood pressure 102/67, resp iratory rate 14, O2 saturation 96% on room air. INTEGUMENT: Clear. HEENT: Head atraumatic, normoc ephalic. Pupils equal, round, reactive to light. EOMs are intact. Sclerae are nonicteric. Mucous membranes moist. Dentition good. NECK: Supple. Trachea midline. LYMPHATICS: No cervical or axil naz adenopathy palpated. PULMONARY: Lungs are clear to percussion and auscultation. CARDIOVASCULA R: Regular rhythm, rate. Normal S1, S2 without murmur. Peripheral pulses strong bilaterally. No p edal edema. GASTROINTESTINAL: Abdomen slightly distended. Positive fluid wave. Positive bowel chadwick nds. No liver, spleen tip palpable. No masses or tenderness noted. No rebound noted. EXTREMITIES: Without deformity. NEURO: The patient is alert and oriented x3. There are no focal neurologic de ficits. LABORATORY DATA: White count 7.47, hemoglobin 15.2, hematocrit 43.7, platelets 97,000. ProTime 16.4 . INR 1.3, PTT 31.4. Electrolytes normal. BUN 18, creatinine 0.6. Total bilirubin 0.8, AST 23, AL T 27, ALP 127, albumin 4.4, lipase 201. Abdominal ultrasound with paracentesis was aborted due to a scant amount of free fluid in the peritoneum. IMPRESSION: 1. Subacute upper gastrointestinal bleed in a gentleman with known alcoholic cirrhosis, portal hyper tension, and prior ablated esophageal varices, as well as history of a bleeding duodenal ulcer, rule out esophageal variceal bleed (less likely), rule out peptic ulcer, rule out gastritis or portal hype rtension. 2. Laennec's cirrhosis with portal hypertension, fairly compensated with normal albumin, slightly el evated ProTime. 3. History of portal systemic encephalopathy. 4. History of ascites, though no appreciable fluid on ultrasound today. RECOMMENDATIONS: 1. Would proceed with esophagogastroduodenoscopy with general anesthesia today. 2. Check ammonia level. 3. Continue patient on oral medications after endoscopy. 4. We will follow with you. /[id number]/MODL
--- NOTE | 2018-02-19 17:05 | ASMTCMCOM ---
CM Note CM Note Notes: Pt presented to the ED for hematemesis, melenotic stool, and a headache. Pt admitted for possible upper GI bleed, confusion, encephelopathy Pt's PMH includes esophageal varices (banded in June 2017), end stage liver disease r/t alcoholic cirrhosis, upper GI bleed, portal hypertension, anemia, diabetes, TBI in 2011, and hernia. Pt reports he has been sober for awhile; per chart review from 07/08/17 admission, pt had been sober at that time for "years" and was hoping to qualify for a liver transplant if he ended up needing one. Pt was provided counseling resources at that time. Pt received upper endoscopy today. Pt lives in [place]. Pt's PCP is listed as Dr Ana Cerna at [facility]. Exact DC needs TBD. but anticipate pt to stabilize and DC independent. CM to follow. Date Signed: 02/19/2018 05:05 PM Electronically Signed By:Britney Brambila RN
[2018-02-19] MEDS ORDERED: oxyCODONE IR 5 MG TAB PO PRN ×2 (17:10→19:19)
[2018-02-19] MEDS ORDERED: SUMAtriptan 25 MG TAB PO PRN (17:10)
[2018-02-19] MEDS ORDERED: [UNRECOGNIZED DRUG - OTHER] PO PRN (17:10)
[2018-02-19] MEDS: OCTREOTIDE ACETATE 500 MCG in NS 50 ML IV SCH (17:33)
[2018-02-19] MEDS ORDERED: CHOLECALCIFEROL VIT D3 1,000 UNITS TAB PO SCH (18:00)
[2018-02-19] MEDS: RIFAXIMIN 550 MG TAB PO SCH (18:57)
[2018-02-19] MEDS: GABAPENTIN 100 MG CAP PO SCH (18:57)
[2018-02-19] MEDS: LACTULOSE 20 GM/30 ML UDCUP PO SCH (18:58)
[2018-02-19] MEDS: PANTOPRAZOLE SODIUM 40 MG TAB PO SCH (19:40)
[2018-02-19] MEDS: MELATONIN 3 MG TAB PO PRN (19:40)
[2018-02-19] MEDS: ZOLPIDEM TARTRATE 5 MG TAB PO PRN (19:40)
[2018-02-19] MEDS: LIDOCAINE 2% VISCOUS 15 ML UDCUP PO PRN (19:41)
[2018-02-19] MEDS: DICYCLOMINE 20 MG TAB PO SCH (19:41)
[2018-02-19] MEDS: MAGNESIUM GLYCINATE 100 MG PO SCH (19:52)
[2018-02-20] MEDS: LIDOCAINE 2% VISCOUS 15 ML UDCUP PO PRN ×8 (00:51→20:08)
[2018-02-20] MEDS: NICOTINE 21 MG/24 HR PATCH TD SCH ×2 (01:16→07:59)
[2018-02-20] MEDS: OCTREOTIDE ACETATE 500 MCG in NS 50 ML IV SCH ×2 (04:09→17:08)
[2018-02-20] MEDS: LEVOTHYROXINE 150 MCG TAB PO SCH (04:48)
[2018-02-20 06:01] LABS: PLATELET COUNT 87 10^3/uL (150-400)
[2018-02-20] MEDS: RIFAXIMIN 550 MG TAB PO SCH ×2 (06:57→18:04)
[2018-02-20] MEDS: DICYCLOMINE 20 MG TAB PO SCH ×4 (06:57→20:07)
[2018-02-20] MEDS: LACTULOSE 20 GM/30 ML UDCUP PO SCH ×4 (06:58→18:05)
[2018-02-20] MEDS: PANTOPRAZOLE SODIUM 40 MG TAB PO SCH ×2 (07:59→20:07)
[2018-02-20] MEDS: FUROSEMIDE 40 MG TAB PO SCH (07:59)
[2018-02-20] MEDS: GABAPENTIN 100 MG CAP PO SCH ×3 (08:00→18:04)
[2018-02-20] MEDS ORDERED: Herbals/Supplements -Info Only PO SCH (09:00)
[2018-02-20] MEDS: Fluticasone/Vilanterol [Breo Ellipta 200-25 Mcg Inh] IH SCH ×2 (09:18→11:00)
--- NOTE | 2018-02-20 10:54 | SOAPPROG ---
[facility] Progress Note Assessment/Plan: Assessment: s/p EGD with banding of esophageal varices. No acute signs of bleeding. Plan: 1. Clear liquids, can advance a tolerated to low sodium diet 2. Continue on IV octreotide for 24 hours 3. Continue PPI 4. Continue on Abx for SBP prophylaxis in setting of GI bleed 5. Follow up EGD in 4 weeks 02/20/18 10:55 Subjective: CC: GI Bleed Varices s/p banding. Hemodynamically stable, no signs of bleeding. Objective: Vital Signs Temp Pulse Resp BP Pulse Ox 35.7 C L 77 20 102/69 95 02/20/18 07:34 02/20/18 07:34 02/20/18 07:34 02/20/18 07:34 02/20/18 07:34 Laboratory Results 02/20/18 04:41 02/20/18 04:41 02/19/18 02/20/18 02/21/18 05:59 05:59 05:59 Intake Total 942 Output Total 0 Balance 942 PT 16.4 SEC (12.0-15.0) H 02/19/18 11:20 INR 1.30 (0.83-1.16) H 02/19/18 11:20 Physical Exam - Physical Exam General Appearance: alert, no apparent distress Respiratory: lungs clear, normal breath sounds Cardiac/Chest: regular rate, rhythm Abdomen: normal bowel sounds, non-tender, soft Skin: normal color, warm/dry Neuro/Psych: no motor/sensory deficits, alert, normal mood/affect, oriented x 3 ICD10 Worksheet Patient Problems: Problems Problem Status Onset Esophageal varices Acute History of esophagogastroduodenoscopy (EGD) Acute Liver disease, chronic, due to alcohol Acute Upper gastrointestinal hemorrhage Acute Abdominal pain Acute Ascites Acute GIB (gastrointestinal bleeding) Acute Hyponatremia Acute Lower GI bleeding Acute
[2018-02-20] MEDS: oxyCODONE IR 5 MG TAB PO PRN ×3 (11:01→17:15)
[2018-02-20] MEDS: MULTIVITAMINS 1 EACH TAB PO SCH (11:01)
[2018-02-20] MEDS: ASCORBIC ACID 500 MG TAB PO SCH (11:01)
[2018-02-20] MEDS: VITAMIN B COMPLEX 1 EA CAP/TAB PO SCH (11:01)
[2018-02-20] MEDS ORDERED: CYANO/VITAMIN B12 1000 MCG TAB PO SCH (14:00)
--- NOTE | 2018-02-20 14:21 | HOSPPROG ---
Hospitalist Progress Note Assessment/Plan: 52 yo M w w cirrhosis, known varices a.w melena. scope showed evidence of recent variceal bleed, these were banded variceal bleed: ppi, octreotide add'l 24 h, abx ? role of proph bb cirrhosis: stable abstinent from alcohol continue diuretics chronic pain: continuehome narcotics encephalopathy: continue lactulose and rifaximin dispo: change to inpatient Subjective: case d/w dr gandara. no vomiting, melena Objective: Vital Signs Temp Pulse Resp BP Pulse Ox 36.2 C 91 20 110/83 H 94 02/20/18 11:53 02/20/18 11:53 02/20/18 11:53 02/20/18 11:53 02/20/18 11:53 Laboratory Results 02/20/18 04:41 02/20/18 04:41 02/19/18 02/20/18 02/21/18 05:59 05:59 05:59 Intake Total 942 Output Total 0 Balance 942 PT 16.4 SEC (12.0-15.0) H 02/19/18 11:20 INR 1.30 (0.83-1.16) H 02/19/18 11:20 - Physical Exam Constitutional: no apparent distress, appears nourished Eyes: PERRL, anicteric sclera Ears, Nose, Mouth, Throat: moist mucous membranes, hearing normal Cardiovascular: regular rate and rhythym, no murmur, rub, or gallop Respiratory: no respiratory distress, no rales or rhonchi Gastrointestinal: normoactive bowel sounds, soft, non-tender abdomen Genitourinary: no bladder fullness, No martínez in urethra Skin: warm, normal color Musculoskeletal: full muscle strength, no muscle tenderness Neurologic: AAOx3 ICD10 Worksheet Patient Problems: Problems Problem Status Onset Esophageal varices Acute History of esophagogastroduodenoscopy (EGD) Acute Liver disease, chronic, due to alcohol Acute Upper gastrointestinal hemorrhage Acute Abdominal pain Acute Ascites Acute GIB (gastrointestinal bleeding) Acute Hyponatremia Acute Lower GI bleeding Acute
[2018-02-20] MEDS ORDERED: PYRIDOXINE HCL 100 MG TAB PO SCH (17:00)
[2018-02-20] MEDS ORDERED: CALCIUM CARB W/VIT D 500 MG TAB PO SCH (17:00)
[2018-02-20] MEDS: MAGNESIUM GLYCINATE 100 MG PO SCH (18:05)
[2018-02-20] MEDS: ZOLPIDEM TARTRATE 5 MG TAB PO PRN (20:07)
[2018-02-20] MEDS: MELATONIN 3 MG TAB PO PRN (21:36)
[2018-02-21] MEDS: LIDOCAINE 2% VISCOUS 15 ML UDCUP PO PRN ×2 (01:26→05:50)
[2018-02-21] MEDS: ACETAMINOPHEN 325 MG TAB PO PRN ×2 (01:29→11:26)
[2018-02-21] MEDS: OCTREOTIDE ACETATE 500 MCG in NS 50 ML IV SCH ×2 (01:33→11:03)
[2018-02-21 05:33] LABS: PLATELET COUNT 84 10^3/uL (150-400)
[2018-02-21] MEDS: LEVOTHYROXINE 150 MCG TAB PO SCH (05:50)
[2018-02-21] MEDS: LACTULOSE 20 GM/30 ML UDCUP PO SCH ×2 (05:50→11:28)
[2018-02-21] MEDS: RIFAXIMIN 550 MG TAB PO SCH (05:50)
[2018-02-21] MEDS: DICYCLOMINE 20 MG TAB PO SCH ×2 (05:50→11:26)
[2018-02-21] MEDS ORDERED: LIDOCAINE 2% VISCOUS 15 ML UDCUP PO PRN (07:30)
[2018-02-21] MEDS: FUROSEMIDE 40 MG TAB PO SCH (08:06)
[2018-02-21] MEDS: PANTOPRAZOLE SODIUM 40 MG TAB PO SCH (08:07)
[2018-02-21] MEDS: NICOTINE 21 MG/24 HR PATCH TD SCH (08:07)
[2018-02-21] MEDS: GABAPENTIN 100 MG CAP PO SCH (08:07)
[2018-02-21 08:20] VITALS: BP 94/69
[2018-02-21] MEDS: Fluticasone/Vilanterol [Breo Ellipta 200-25 Mcg Inh] IH SCH (09:28)
--- NOTE | 2018-02-21 11:04 | SOAPPROG ---
SOAP Progress Note Assessment/Plan: Assessment: s/p EGD with banding of esophageal varices. Doing well, denies any blood per rectum or melenic stools. Would d/c Octreotide. Plan: 1. Low sodium diet 2. D/C octreotide 3. Continue on PPi 4. Patient is followed by Dr. Thomas as outpatient as well as Dr. Rodriguez ( Hepatology/transplant service) at [facility]. 5. Ok for discharge home. Follow up EGD in [address] Thomas and follow up with Dr. Rodriguez at [facility] Can discuss possible intialtion of non- selective Beta chaim with his primary GI physician as an outpatient 02/21/18 11:06 Subjective: CC: GI Bleed Portal HTN, cirrhosis secondary to ETOH. No signs of bleeding Objective: Vital Signs Temp Pulse Resp BP Pulse Ox 36.7 C 80 14 94/69 L 95 02/21/18 08:19 02/21/18 08:19 02/21/18 08:19 02/21/18 08:19 02/21/18 08:19 Laboratory Results 02/21/18 04:32 02/21/18 04:32 02/20/18 02/21/18 02/22/18 05:59 05:59 05:59 Intake Total 3588 800 Balance 3588 800 PT 16.4 SEC (12.0-15.0) H 02/19/18 11:20 INR 1.30 (0.83-1.16) H 02/19/18 11:20 Generic Name Dose Route Start Last Admin Trade Name Freq PRN Reason Stop Dose Admin Acetaminophen 650 mg 02/19/18 13:20 02/21/18 01:29 Tylenol PO 08/18/18 13:19 650 mg Q4HRS PRN Administration Pain, Mild/Fever, Can Take PO Amiloride HCl 10 mg 02/22/18 08:00 Amiloride PO 08/21/18 07:59 MWF@08 [facility] Ascorbic Acid 500 mg 02/20/18 11:00 02/20/18 11:01 Vitamin C PO 08/19/18 10:59 500 mg DAILY@11 [facility] Administration Calcium/Vitamin D 500 mg 02/20/18 17:00 02/20/18 16:14 Calcium Carb W/Vit D PO 08/19/18 16:59 500 mg DAILY@17 [facility] Administration Cholecalciferol 1,000 units 02/19/18 18:00 02/19/18 18:57 Vitamin D PO 08/18/18 17:59 1,000 units Q2D@18 [facility] Administration Dicyclomine HCl 20 mg 02/19/18 21:00 02/21/18 05:50 Bentyl PO 08/18/18 20:59 20 mg QID [facility] Administration Furosemide 120 mg 02/20/18 08:00 02/21/18 08:06 Lasix PO 08/19/18 07:59 120 mg SUTUTHSA@08 [facility] Administration Furosemide 160 mg 02/22/18 08:00 Lasix PO 08/21/18 07:59 MOWEFR@08 [facility] Gabapentin 200 mg 02/19/18 19:00 02/21/18 08:07 Neurontin PO 08/18/18 18:59 200 mg TID@, [facility] Administration Ceftriaxone Sodium/Dextrose 50 mls @ 100 mls/hr 02/19/18 13:30 02/21/18 08:07 Rocephin 1 Gm (Premix) IV 03/21/18 13:29 50 mls DAILY [facility] Administration Protocol Octreotide Acetate 500 mcg/ 51 mls @ 5 mls/hr 02/19/18 16:45 02/21/18 11:03 Sodium Chloride IV 08/18/18 16:44 51 mls CONT [facility] Administration Lactulose 30 gm 02/19/18 19:00 02/21/18 05:50 Cephulac PO 08/18/18 18:59 30 gm QID@06,11,1530,19 [facility] Administration Levothyroxine Sodium 150 mcg 02/20/18 04:00 02/21/18 05:50 Synthroid PO 08/19/18 03:59 150 mcg DAILY@04 [facility] Administration Lidocaine 15 ml 02/21/18 07:30 Lidocaine 2% Viscous PO 08/18/18 19:19 Q2H PRN Esophageal Pain Melatonin 3 mg 02/19/18 17:10 02/20/18 21:36 Melatonin PO 08/18/18 17:09 3 mg HS PRN Administration Sleep/Insomnia Miscellaneous Medication 1 each 02/20/18 09:00 02/21/18 09:28 Fluticasone/Vilanterol [Breo Ellipta 200-25 Mcg Inh] IH 08/19/18 08:59 1 inh DAILY [facility] Administration Miscellaneous Medication 1 tab 02/19/18 17:10 Yvette's Leg Cramp Tabs PO DAILY PRN LEG CRAMPS Miscellaneous Medication 100 mg 02/19/18 18:00 02/20/18 18:05 Magnesium Glycinate [Mag Glycinate] PO 08/18/18 17:59 100 mg DAILY18 [facility] Administration Multivitamins 1 each 02/20/18 11:00 02/20/18 11:01 Tab-A-Marina PO 08/19/18 10:59 1 each DAILY@11 [facility] Administration Nicotine 21 mg 02/20/18 01:15 02/21/18 08:07 Nicoderm Cq TD 08/19/18 01:14 21 mg DAILY [facility] Administration Ondansetron HCl 4 mg 02/19/18 13:20 Zofran Odt PO 08/18/18 13:19 Q4HRS PRN Nausea/Vomiting, Use 1st Oxycodone HCl 5 mg 02/19/18 19:19 02/20/18 17:15 Oxycodone Ir PO 03/01/18 19:18 5 mg Q3H PRN Administration Pain, Moderate Able to Take PO Oxycodone HCl 10 mg 02/19/18 19:19 Oxycodone Ir PO 03/01/18 19:18 Q3H PRN Pain, Severe Able to Take PO Pantoprazole Sodium 40 mg 02/19/18 21:00 02/21/18 08:07 Protonix PO 08/18/18 20:59 40 mg BID [facility] Administration Pyridoxine HCl 100 mg 02/20/18 17:00 02/20/18 16:14 Vitamin B-6 PO 08/19/18 16:59 100 mg DAILY@17 [facility] Administration Rifaximin 550 mg 02/19/18 19:00 02/21/18 05:50 Xifaxan PO 03/21/18 18:59 550 mg BID@06,19 [facility] Administration Protocol Sumatriptan Succinate 25 mg 02/19/18 17:10 Imitrex PO 08/18/18 17:09 DAILY PRN migraine Vitamin B Complex 1,000 mcg 02/20/18 14:00 02/20/18 13:19 Vitamin B12 PO 08/19/18 13:59 1,000 mcg DAILY@14 [facility] Administration Vitamin B Complex 1 ea 02/20/18 11:00 02/20/18 11:01 Vitamin B Complex PO 08/19/18 10:59 1 ea DAILY@11 [facility] Administration Zolmitriptan 2.5 mg 02/19/18 17:10 Zomig PO 08/18/18 17:09 DAILY PRN migraine Zolpidem Tartrate 10 mg 02/19/18 19:21 02/20/18 20:07 Ambien PO 08/18/18 19:20 10 mg HS PRN Administration Sleep/Insomnia Discontinued Medications Generic Name Dose Route Start Last Admin Trade Name Freq PRN Reason Stop Dose Admin Albuterol 3 ml 02/19/18 16:32 Proventil Neb IH 02/19/18 17:32 Q10M PRN PACU, Wheezing Fentanyl Confirm 02/19/18 16:14 Sublimaze Administered 02/19/18 16:15 Dose 100 mcg .ROUTE .STK-MED ONE Fentanyl 25 - 100 mcg 02/19/18 16:32 02/19/18 16:54 Sublimaze IVP 02/19/18 17:32 50 mcg Q5M PRN Administration PACU, IMMEDIATE Pain control Fentanyl Confirm 02/19/18 16:44 Sublimaze Administered 02/19/18 16:45 Dose 100 mcg .ROUTE .STK-MED ONE Sodium Chloride 1,000 mls @ 0 mls/hr 02/19/18 10:47 02/19/18 11:20 Ns IV 02/19/18 10:48 1,000 mls EDNOW ONE Administration Protocol Wide Open Lactated Ringer's 1,000 mls @ 0 mls/hr 02/19/18 15:26 02/19/18 15:56 Lr IV 02/19/18 15:27 1,000 mls ONCE ONE Administration Per Protocol Lactated Ringer's 500 mls @ 0 mls/hr 02/19/18 16:32 Lr IV 02/19/18 17:32 PRN PRN PACU, Nausea/Vomiting Post-Op Wide Open Lidocaine 5 ml 02/19/18 19:20 02/21/18 05:50 Lidocaine 2% Viscous PO 08/18/18 19:19 5 ml Q2H PRN Administration Esophageal Pain Lidocaine HCl Confirm 02/19/18 16:24 Xylocaine-Mpf 2% Vial Administered 02/19/18 16:25 Dose 10 ml .ROUTE .STK-MED ONE Naloxone HCl 0.1 mg 02/19/18 16:32 Narcan IVP 02/19/18 17:32 Q2M PRN PACU Resp Rate <10/min Ondansetron HCl 4 mg 02/19/18 13:20 Zofran IVP 08/18/18 13:19 Q4HRS PRN Nausea/Vomiting, Can't Take PO Ondansetron HCl 2 - 4 mg 02/19/18 16:32 Zofran IVP 02/19/18 17:32 Q10M PRN PACU, Nausea/Vomiting Oxycodone HCl 5 mg 02/19/18 17:10 02/19/18 18:59 Oxycodone Ir PO 03/01/18 17:09 5 mg DAILY PRN Administration SEVERE PAIN Pantoprazole Sodium 40 mg 02/19/18 12:11 02/19/18 12:23 Protonix IVP 02/19/18 12:12 40 mg EDNOW ONE Administration Phenylephrine HCl Confirm 02/19/18 16:24 Neosynephrine Administered 02/19/18 16:25 Dose 1,000 mcg .ROUTE .STK-MED ONE Propofol Confirm 02/19/18 15:28 Diprivan Administered 02/19/18 15:29 Dose 200 mg .ROUTE .STK-MED ONE Propofol Confirm 02/19/18 16:17 Diprivan Administered 02/19/18 16:18 Dose 200 mg .ROUTE .STK-MED ONE Sufentanil Citrate Confirm 02/19/18 15:28 Sufenta Administered 02/19/18 15:29 Dose 50 mcg .ROUTE .STK-MED ONE Physical Exam - Physical Exam General Appearance: alert, no apparent distress Respiratory: lungs clear, normal breath sounds Cardiac/Chest: regular rate, rhythm Abdomen: normal bowel sounds, non-tender, soft Skin: normal color, warm/dry Neuro/Psych: alert, normal mood/affect, oriented x 3 ICD10 Worksheet Patient Problems: Problems Problem Status Onset Esophageal varices Acute History of esophagogastroduodenoscopy (EGD) Acute Liver disease, chronic, due to alcohol Acute Upper gastrointestinal hemorrhage Acute Abdominal pain Acute Ascites Acute GIB (gastrointestinal bleeding) Acute Hyponatremia Acute Lower GI bleeding Acute
[2018-02-21] MEDS: ASCORBIC ACID 500 MG TAB PO SCH (11:26)
[2018-02-21] MEDS: VITAMIN B COMPLEX 1 EA CAP/TAB PO SCH (11:26)
[2018-02-21] MEDS: MULTIVITAMINS 1 EACH TAB PO SCH (11:26)
--- NOTE | 2018-02-21 12:13 | HOSPPROG ---
Hospitalist Progress Note Assessment/Plan: 52 yo M w w cirrhosis, known varices a.w melena. scope showed evidence of recent variceal bleed, these were banded variceal bleed: ppi, octreotide add'l 24 h, abx ? role of proph bb cirrhosis: stable abstinent from alcohol continue diuretics chronic pain: continuehome narcotics encephalopathy: continue lactulose and rifaximin dispo: home today > 30 minutes Subjective: feels well. no melena. hct stable Objective: Vital Signs Temp Pulse Resp BP Pulse Ox 36.7 C 80 14 94/69 L 95 02/21/18 08:19 02/21/18 08:19 02/21/18 08:19 02/21/18 08:19 02/21/18 08:19 Laboratory Results 02/21/18 04:32 02/21/18 04:32 02/20/18 02/21/18 02/22/18 05:59 05:59 05:59 Intake Total 3588 800 Balance 3588 800 PT 16.4 SEC (12.0-15.0) H 02/19/18 11:20 INR 1.30 (0.83-1.16) H 02/19/18 11:20 - Physical Exam Constitutional: no apparent distress, appears nourished Eyes: PERRL, anicteric sclera Ears, Nose, Mouth, Throat: moist mucous membranes, hearing normal Cardiovascular: regular rate and rhythym, no murmur, rub, or gallop Respiratory: no respiratory distress, no rales or rhonchi Gastrointestinal: normoactive bowel sounds, soft, non-tender abdomen Genitourinary: no bladder fullness, No martínez in urethra Skin: warm, normal color Musculoskeletal: full muscle strength ICD10 Worksheet Patient Problems: Problems Problem Status Onset Esophageal varices Acute History of esophagogastroduodenoscopy (EGD) Acute Liver disease, chronic, due to alcohol Acute Upper gastrointestinal hemorrhage Acute Abdominal pain Acute Ascites Acute GIB (gastrointestinal bleeding) Acute Hyponatremia Acute Lower GI bleeding Acute
--- NOTE | 2018-02-21 18:46 | PDMN ---
Medical Necessity Medical necessity: MCG: M180 GIB -upper A-2 days: status changed to INPT 02/20/18 for ongoing monitoring, eval and tx of melena and hematemesis. OP: EGD, endoscopy Three column of varices found, four bands successfully placed -
--- NOTE | 2018-02-22 05:26 | GDS ---
DISCHARGE DIAGNOSES: 1. Cirrhosis. 2. Variceal bleed, status post banding. 3. History of hepatic encephalopathy. 4. Chronic pain, on continuous narcotics. 5. Portal hypertension. 6. History of traumatic brain injury. HOSPITAL COURSE: Please see admission history and physical dictated by Dr. Eric Pedersen. The becca ent presented with a couple episodes of melena. His hemoglobin and hematocrit were stable. He had t hrombocytosis, which is chronic for him. His INR was 1.3, which is about his baseline. He did have an elevated BUN suggestive of active upper GI bleed. He was not acutely encephalopathic upon present ation. He was started on ceftriaxone and PPI. He was scoped, revealing no active bleeding but evide nce of prior bleed. His varices were banded. He received 24 hours of octreotide with no further maryam leeding. He was alert and oriented. Antibiotics were discontinued on the day of discharge. He is d ischarged home with outpatient followup. Copy requested to: Dr. Jerod Thomas Division of Hepatology [facility] /[id number]
[2018-02-22] MEDS ORDERED: AMILORIDE 5 MG TAB PO SCH (08:00)
[2018-02-22] MEDS ORDERED: FUROSEMIDE 40 MG TAB PO SCH (08:00)
== END 2018-02-21 12:48 | disposition home or self-care (01) | DRG 432 ==
LOC: EEVIPCON 10:26 → F3E 13:51 → OBSVTOIN 02-20 14:23
PROVIDERS: ADMIT Internal Medicine; ATTEND Internal Medicine
PROC: 06L38CZ Occlusion of Esophageal Vein with Extraluminal Device, Via Natural or Artificial Opening Endoscopic (ICD-10-PCS; principal; 2018-02-20)
DX: K70.30 Alcoholic cirrhosis of liver without ascites (principal); I85.11 Secondary esophageal varices with bleeding; K72.90 Hepatic failure, unspecified without coma; R41.0 Disorientation, unspecified; E11.9 Type 2 diabetes mellitus without complications; E03.9 Hypothyroidism, unspecified; Z87.820 Personal history of traumatic brain injury; F17.210 Nicotine dependence, cigarettes, uncomplicated
CPT/HCPCS: 96374; G0378; J0696; J2354; J2370; J2704; J3010

== ENCOUNTER → 2018-07-14 | Outpatient (CLI) | payer OTHER | LOC: FIMAGING 10:23 | PROVIDERS: ATTEND Family Medicine | DX: K70.31 Alcoholic cirrhosis of liver with ascites (principal); K80.20 Calculus of gallbladder without cholecystitis without obstruction; R16.1 Splenomegaly, not elsewhere classified ==

== ENCOUNTER → 2018-08-13 | Outpatient (CLI) | payer OTHER | LOC: FIMAGING 09:35 ==

== ENCOUNTER → 2018-09-06 | Outpatient (CLI) | payer OTHER | LOC: BMCIMAGING 12:46 ==